=== PATIENT | female | born 1940 | race Caucasian/White ===

== ENCOUNTER → 2017-10-30 12:46 | Outpatient (CLI) | payer MEDICARE, OTHER, SELFPAY ==
--- NOTE | 2017-10-30 | DI.MRI.S_ITS ---
PROCEDURE: MR ANKLE RT WO CON INDICATIONS: STRAIN OF RIGHT ACHILLES TENDON TECHNIQUE: Noncontrast sagittal T1 spin echo and T2 fast spin echo with fat saturation, axial proton density fast spin echo and T2 fast spin echo with fat saturation, coronal T1 spin echo and T2 fast spin echo with fat saturation through the ankle/hindfoot. COMPARISON: None. FINDINGS: Image quality: There is mild inhomogeneous fat saturation. Bones and joints: No bone marrow contusions or fractures. No hindfoot coalitions. No osteochondral injuries of the talar dome. There is flag-bi-odtszzdh degeneration along the posterior facet of the subtalar joint with associated subchondral edema as well as a probable small osteochondral lesion. There is a small tibiotalar joint effusion. There is mild generalized subcutaneous edema. Medial structures: The posterior tibialis, flexor digitorum longus, and flexor hallucis longus tendons are intact. The posterior tibial neurovascular bundle appears normal within the tarsal tunnel, without extrinsic mass effect. The deltoid and spring ligaments appear intact. Lateral structures: The anterior talofibular, calcaneofibular, and posterior talofibular ligaments appear intact. More superiorly, the anterior and posterior tibiofibular ligaments appear intact, as is the intermalleolar ligament. The tibiofibular syndesmosis is normal in width at 2 mm or less. There is flattening of the peroneus brevis with a partial longitudinal split tear along the lateral malleolus. There is associated mild peritendinitis along the peroneal tendons. Adjacent bony peroneal tubercle and retrotrochlear prominence are normal in size. The sinus tarsi demonstrates preserved fatty signal, without with mild edema. The calcaneonavicular and calcaneocuboid components of the bifurcate ligament appear intact. The dorsal calcaneocuboid ligament appears grossly intact. Anterior structures: The tibialis anterior, extensor hallucis longus, and extensor digitorum longus tendons appear intact. The dorsal talonavicular ligament appears intact. Posterior and plantar structures: Achilles tendon is intact. There is mild fusiform thickening of the central cord of the plantar fascia approximately 1.5 cm from its origin without associated edema. No abductor digiti quinti muscle atrophy to suggest Garcia neuropathy. IMPRESSION: 1. Achilles appears intact without high-grade tear or rupture. 2. 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 3. Small tibiotalar joint effusion. Dictated by: Nnamdi Martin M.D. on 10/30/2017 at 16:02 Approved by: Nnamdi Martin M.D. on 10/30/2017 at 16:09
== END ==
PROVIDERS: Family Provider Family Medicine; PCP Family Medicine; Visit Provider Podiatrist
DX: M19.071 Primary osteoarthritis, right ankle and foot (principal); M25.471 Effusion, right ankle
CPT/HCPCS: 73721

== ENCOUNTER → 2017-11-18 08:13 | Outpatient (CLI) | payer MEDICARE, OTHER, SELFPAY ==
[2017-11-18 08:35] LABS: Hematocrit 38.1 % (36-46); Hemoglobin 12.8 g/dL (12.0-16.0); Mean Corpuscular HGB Conc 33.6 % (30-36); Mean Corpuscular Hemoglobin 34.1 PG (26-34); Mean Corpuscular Volume 101.2 fL (80-100); Platelet Count 118 X10^3/uL (150-400); Red Blood Cell Count 3.77 X10^6/uL (4.0-5.2); Red Cell Distribution Width 17.5 % (11.6-14.8); White Blood Cell Count 2.6 X10^3/uL (4.5-11.0)
[2017-11-18 08:40] LABS: Add Manual Diff / Slide Review YES
[2017-11-18 08:46] LABS: Alanine Aminotransferase 27 IU/L (9-52); Albumin 3.8 g/dL (3.5-5.0); Albumin Globulin Ratio 1.5 (1.0-2.8); Alkaline Phosphatase 54 U/L (38-126); Aspartate Aminotransferase 25 IU/L (14-36); BUN Creatinine Ratio 32.9 (6-22); Bilirubin Total 0.6 mg/dL (0.2-1.3); Blood Urea Nitrogen 23 mg/dL (7-17); Calcium 9.2 mg/dL (8.4-10.2); Carbon Dioxide 27 mmol/L (22-32); Chloride 104 mmol/L (98-107); Estimated Glomerular Filt Rate > 60.0 mL/min (>60); Globulin 2.6 g/dL (1.7-4.1); Glucose 68 mg/dL (80-110); HEMOLYSIS < 15 (0-50); Potassium 4.1 mmol/L (3.4-5.1); Sodium 139 mmol/L (137-145); Total Protein 6.4 g/dL (6.3-8.2)
[2017-11-18 09:08] LABS: Neutrophils Absolute Manual 1352 /uL (3000-5900); Total Cells Counted 100
[2017-11-18 09:10] LABS: Anisocytosis 1+
== END ==
PROVIDERS: Family Provider Family Medicine; PCP Family Medicine; Visit Provider Nurse Practitioner Gerontology
DX: C50.919 Malignant neoplasm of unspecified site of unspecified female breast (principal)
CPT/HCPCS: 36415; 80053; 85025

== ENCOUNTER → 2017-12-10 14:15 | Outpatient (CLI) | payer MEDICARE, OTHER, SELFPAY ==
[2017-12-10 14:53] LABS: Add Manual Diff / Slide Review NO; Basophils Percent Auto 0.7 % (0-2); Eosinophils Percent Auto 2.2 % (2-4); Hemoglobin 12.2 g/dL (12.0-16.0); Mean Corpuscular Hemoglobin 34.2 PG (26-34); Mean Corpuscular Volume 100.7 fL (80-100); Neutrophils Absolute Auto 1300 /uL (3000-5900); Neutrophils Percent Auto 53.1 % (50-75); Platelet Count 181 X10^3/uL (150-400); Red Blood Cell Count 3.57 X10^6/uL (4.0-5.2); Red Cell Distribution Width 16.8 % (11.6-14.8); White Blood Cell Count 2.4 X10^3/uL (4.5-11.0)
[2017-12-10 15:05] LABS: Alanine Aminotransferase 28 IU/L (9-52); Albumin 3.7 g/dL (3.5-5.0); Albumin Globulin Ratio 1.4 (1.0-2.8); Alkaline Phosphatase 66 U/L (38-126); Aspartate Aminotransferase 26 IU/L (14-36); BUN Creatinine Ratio 27.5 (6-22); Bilirubin Total 0.4 mg/dL (0.2-1.3); Blood Urea Nitrogen 22 mg/dL (7-17); Calcium 8.7 mg/dL (8.4-10.2); Carbon Dioxide 26 mmol/L (22-32); Chloride 104 mmol/L (98-107); Estimated Glomerular Filt Rate > 60.0 mL/min (>60); Globulin 2.6 g/dL (1.7-4.1); Glucose 84 mg/dL (80-110); HEMOLYSIS < 15 (0-50); Potassium 4.3 mmol/L (3.4-5.1); Sodium 136 mmol/L (137-145); Total Protein 6.3 g/dL (6.3-8.2)
[2017-12-12 15:38] LABS: Cancer Antigen 27.29 69 U/mL (< 38)
== END ==
PROVIDERS: Family Provider Family Medicine; PCP Family Medicine; Visit Provider Nurse Practitioner Gerontology
DX: C50.919 Malignant neoplasm of unspecified site of unspecified female breast (principal)
CPT/HCPCS: 36415; 80053; 85025; 86300

== ENCOUNTER → 2017-12-23 09:48 | Outpatient (CLI) | payer MEDICARE, OTHER, SELFPAY ==
--- NOTE | 2017-12-23 09:50 | DI.NM.S_ITS ---
PROCEDURE: [place] BONE SCAN WHOLE BODY RADIOPHARMACEUTICAL: 20.1 mCi Tc-99m MDP IV. INDICATIONS: 77-year-old woman with metastatic breast cancer. Restaging. TECHNIQUE: Delayed whole-body scintigrams were obtained approximately 3-4 hours after intravenous injection of radiotracer. Anterior and posterior views were acquired from vertex to feet. Additional left and right oblique views were obtained. COMPARISON: [facility], [place], PET/CT SKULL BASE TO MID THIGH, 08/24/2015, 9:27. [facility], CT, CT CHEST ABD PEL W CON, 12/23/2017, 11:02. FINDINGS: There is increased uptake in the left seventh rib posteriorly and left 10th rib posterior laterally, suspicious for metastases. Increased uptake is also noted in the left scapular tip suspicious for metastasis. No lesions are identified in skull, sternum, clavicles, scapulae,bony pelvis, and visualized shafts of the long bones. There is increased uptake in cervical, thoracic and lumbar spine with distribution indistinguishable from degenerative disc and facet disease; early metastasis to spine could be obscured by degenerative changes. There are foci of increased periarticular activity involving shoulders bilaterally, wrists bilaterally, both hands, hips bilaterally, knees bilaterally, and feet bilaterally, compatible with degenerative/arthritic changes. There is overall diffusely increased soft tissue uptake. IMPRESSION: 1. Multiple rib lesions are suspicious for metastases. 2. Increased uptake in the left scapular tip suspicious for metastasis. 3. Increased activity in T7 correlates with an old compression fracture. 4. Diffuse increased of tissue uptake. This finding is nonspecific and could be secondary to peripheral vascular disease, venous stasis, renal failure or congestive heart failure, resulting in delayed clearance of soft tissue activity. Dictated by: Chrissy Lacey M.D. on 12/23/2017 at 17:09 Transcribed by: GILDARDO on 12/23/2017 at 17:17 Approved by: Adan Dick M.D. on 12/24/2017 at 5:57
--- NOTE | 2017-12-23 11:04 | DI.CT.S_ITS ---
PROCEDURE: CT CHEST ABD PEL W CON INDICATIONS: 77 year-old woman with metastatic breast cancer. Restaging TECHNIQUE: After the administration of oral and intravenous contrast, 5 mm thick sections acquired from the lung apices to the symphysis. 5 mm coronal and sagittal reformats were performed, with additional 7 mm coronal MIP reformats through the lungs. For radiation dose reduction, the following was used: automated exposure control, adjustment of mA and/or kV according to patient size. COMPARISON: [facility], CT, THORAX WITH CONTRAST, 08/08/2015, 11:01. [facility], MR, BRAIN W&WO CONTRAST, 10/30/2015, 11:09. [facility], CT, ABDOMEN/PELVIS WITH CONTRAST, 01/08/2017, 23:36. [facility], CT, NECK/CHEST/ABD/PEL W CONTRAST, 05/29/2016, 10:39. [facility], [place], PET/CT SKULL BASE TO MID THIGH, 08/24/2015, 9:27. [facility], MR, STROKE PROTOCOL, 03/22/2013, 10:32. [facility], CT, ABDOMEN/PELVIS WITH CONTRAST, 03/22/2013, 9:47. [facility], CT, ABDOMEN/PELVIS WITH CONTRAST, 03/07/2013, 13:43. [facility], CT, CHEST ABDOMEN PELVIS WITH CONTRAST, 12/09/2010, 9:50. [facility], CT, CHEST ABDOMEN PELVIS WITH CONTRAST, 02/22/2007, 9:48. [facility], CT, ABDOMEN/PELVIS WITH CONTRAST, 02/15/2006, 16:41. [facility], CT, CHEST/ABD/PEL WITH CONTRAST, 06/30/2017, 9:31. FINDINGS: Image quality: Excellent. CHEST: Lungs and pleura: No acute airspace opacities. No pleural effusions or pneumothorax. Central and peripheral airways appear patent and normal in caliber. Mediastinum: Heart size is normal. No pericardial effusion. There is a 1.3 cm precarinal node, unchanged in size from the last exam and 06/30/2017. Thoracic aorta and central pulmonary arteries are normal in size. Esophagus is normal in caliber. No hiatal hernia. Chest wall: Bilateral mastectomies. No axillary or supraclavicular adenopathy by size criteria. Thyroid gland is normal. ABDOMEN: Solid organs: Liver is normal in size and enhancement. Gallbladder is surgically absent. Biliary system is non dilated. Pancreas enhances normally. Spleen is normal in size and enhancement. There is a 2 cm cyst in spleen. No adrenal nodules. Kidneys demonstrate normal size and enhancement, without hydronephrosis. Multiple simple appearing renal cysts are present bilaterally. Peritoneum and bowel: There are postsurgical changes in cecum. Bowel loops demonstrate normal wall thickness and caliber. No free fluid or air. Nodes and vessels: No retroperitoneal or mesenteric adenopathy by size criteria. Aorta and inferior vena cava are normal in size. Miscellaneous: There are 2 small fat containing ventral hernias. PELVIS: Genitourinary: Bladder wall thickness is normal. Miscellaneous: No inguinal hernias or adenopathy. Bones: Old left rib fractures noted. There is severe compression fracture of T7 with more than 50% loss of vertebral body height, and mild compression fracture of T3 with ~25% loss of vertebral body height. There is subtle cortical sclerosis in the right side of the sternum. Degenerative changes noted in lumbar spine. IMPRESSION: 1. Stable mildly enlarged precarinal lymph node. 2. Stable severe compression fracture of T7 and mild compression fracture of T3. 3. Bilateral mastectomies. 4. Postsurgical changes in right colon. 5. Bilateral simple appearing renal cysts and a splenic cyst. 3. Two small fat containing ventral hernias. Dictated by: Chrissy Lacey M.D. on 12/23/2017 at 12:36 Transcribed by: GILDARDO on 12/23/2017 at 13:00 Approved by: Chrissy Lacey M.D. on 12/23/2017 at 18:10
== END ==
PROVIDERS: Family Provider Family Medicine; PCP Family Medicine; Visit Provider Internal Medicine Hematology & Oncology
DX: C50.919 Malignant neoplasm of unspecified site of unspecified female breast (principal); R59.0 Localized enlarged lymph nodes; M48.54XA Collapsed vertebra, not elsewhere classified, thoracic region, initial encounter for fracture; N28.1 Cyst of kidney, acquired; K43.9 Ventral hernia without obstruction or gangrene; R93.7 Abnormal findings on diagnostic imaging of other parts of musculoskeletal system
CPT/HCPCS: 71260; 74177; 78306; A9503; Q9967

== ENCOUNTER → 2018-02-08 08:29 | Outpatient (CLI) | payer MEDICARE, OTHER, SELFPAY ==
[2018-02-08 09:28] LABS: Hematocrit 36.1 % (36-46); Hemoglobin 12.4 g/dL (12.0-16.0); Mean Corpuscular HGB Conc 34.3 % (30-36); Mean Corpuscular Hemoglobin 35.4 PG (26-34); Mean Corpuscular Volume 103.2 fL (80-100); Platelet Count 140 X10^3/uL (150-400); Red Cell Distribution Width 17.2 % (11.6-14.8)
[2018-02-08 09:30] LABS: Add Manual Diff / Slide Review YES; White Blood Cell Count 1.8 X10^3/uL (4.5-11.0)
--- NOTE | 2018-02-08 09:30 | PC.NURSE ---
Received critical result from Antonette in lab, WBC 1.8; blood bank attendant aware.
[2018-02-08 09:57] LABS: Alanine Aminotransferase 27 IU/L (9-52); Albumin 3.6 g/dL (3.5-5.0); Albumin Globulin Ratio 1.6 (1.0-2.8); Alkaline Phosphatase 49 U/L (38-126); Aspartate Aminotransferase 22 IU/L (14-36); BUN Creatinine Ratio 28.6 (6-22); Bilirubin Total 0.7 mg/dL (0.2-1.3); Blood Urea Nitrogen 20 mg/dL (7-17); Carbon Dioxide 26 mmol/L (22-32); Chloride 109 mmol/L (98-107); Estimated Glomerular Filt Rate > 60.0 mL/min (>60); Globulin 2.2 g/dL (1.7-4.1); Glucose 77 mg/dL (80-110); HEMOLYSIS 16 (0-50); Potassium 4.4 mmol/L (3.4-5.1); Sodium 143 mmol/L (137-145); Total Protein 5.8 g/dL (6.3-8.2)
[2018-02-08 10:04] LABS: Cholesterol 151 mg/dL (140-199); HDL Cholesterol 78 mg/dL (40-60); LDL Cholesterol Calculated 55 mg/dL (<100); Triglycerides 91 mg/dL (35-150)
[2018-02-08 10:28] LABS: Carcinoembryonic Antigen 7.1 ng/mL (0.1-3.0)
[2018-02-08 10:38] LABS: Neutrophils Absolute Manual 612 /uL (3000-5900); Total Cells Counted 50
[2018-02-08 10:39] LABS: Anisocytosis 1+
[2018-02-10 15:17] LABS: CA 15-3 38 U/mL (< 32)
== END ==
PROVIDERS: Family Provider Family Medicine; PCP Family Medicine; Visit Provider Internal Medicine Hematology & Oncology
DX: C50.919 Malignant neoplasm of unspecified site of unspecified female breast (principal); E78.2 Mixed hyperlipidemia
CPT/HCPCS: 36415; 80053; 80061; 82378; 85025; 86300

== ENCOUNTER → 2018-02-17 08:56 | Outpatient (CLI) | payer MEDICARE, OTHER, SELFPAY ==
[2018-02-17 09:16] LABS: Add Manual Diff / Slide Review NO; Basophils Percent Auto 0.6 % (0-2); Eosinophils Percent Auto 2.7 % (2-4); Hematocrit 35.5 % (36-46); Lymphocytes Percent Auto 26.1 % (25-40); Mean Corpuscular HGB Conc 33.9 % (30-36); Mean Corpuscular Hemoglobin 35.5 PG (26-34); Mean Corpuscular Volume 104.6 fL (80-100); Monocytes Percent Auto 14.5 % (3-14); Neutrophils Absolute Auto 1300 /uL (3000-5900); Neutrophils Percent Auto 56.1 % (50-75); Platelet Count 197 X10^3/uL (150-400); Red Blood Cell Count 3.39 X10^6/uL (4.0-5.2); Red Cell Distribution Width 16.4 % (11.6-14.8); White Blood Cell Count 2.4 X10^3/uL (4.5-11.0)
--- NOTE | 2018-02-17 12:50 | PC.NURSE ---
Dr Fischer reviewed labs from today. ANC 1300. Ok'd pt to start Ibrance. Left pt voice message regarding this.
== END ==
PROVIDERS: Family Provider Family Medicine; PCP Family Medicine
DX: C50.919 Malignant neoplasm of unspecified site of unspecified female breast (principal)
CPT/HCPCS: 36415; 85025

== ENCOUNTER → 2018-03-09 11:30 | Outpatient (CLI) | payer MEDICARE, OTHER, SELFPAY ==
[2018-03-09 11:51] LABS: Add Manual Diff / Slide Review NO; Basophils Percent Auto 1.2 % (0-2); Eosinophils Percent Auto 3.4 % (2-4); Hematocrit 34.6 % (36-46); Hemoglobin 11.9 g/dL (12.0-16.0); Lymphocytes Percent Auto 37.7 % (25-40); Mean Corpuscular HGB Conc 34.4 % (30-36); Mean Corpuscular Hemoglobin 35.3 PG (26-34); Mean Corpuscular Volume 102.5 fL (80-100); Monocytes Percent Auto 8.4 % (3-14); Neutrophils Absolute Auto 1200 /uL (3000-5900); Neutrophils Percent Auto 49.3 % (50-75); Platelet Count 165 X10^3/uL (150-400); Red Blood Cell Count 3.38 X10^6/uL (4.0-5.2); Red Cell Distribution Width 15.1 % (11.6-14.8); White Blood Cell Count 2.3 X10^3/uL (4.5-11.0)
[2018-03-09 11:59] LABS: Alanine Aminotransferase 22 IU/L (9-52); Albumin 3.9 g/dL (3.5-5.0); Albumin Globulin Ratio 1.6 (1.0-2.8); Alkaline Phosphatase 53 U/L (38-126); Aspartate Aminotransferase 26 IU/L (14-36); BUN Creatinine Ratio 27.5 (6-22); Bilirubin Total 0.8 mg/dL (0.2-1.3); Blood Urea Nitrogen 22 mg/dL (7-17); Calcium 9.4 mg/dL (8.4-10.2); Carbon Dioxide 25 mmol/L (22-32); Chloride 105 mmol/L (98-107); Estimated Glomerular Filt Rate > 60.0 mL/min (>60); Globulin 2.4 g/dL (1.7-4.1); Glucose 91 mg/dL (80-110); HEMOLYSIS < 15 (0-50); Potassium 4.7 mmol/L (3.4-5.1); Sodium 140 mmol/L (137-145); Total Protein 6.3 g/dL (6.3-8.2)
[2018-03-09 12:30] LABS: Carcinoembryonic Antigen 6.3 ng/mL (0.1-3.0)
[2018-03-10 15:12] LABS: Cancer Antigen 27.29 38 U/mL (< 38)
== END ==
PROVIDERS: Family Provider Family Medicine; PCP Family Medicine
DX: C50.919 Malignant neoplasm of unspecified site of unspecified female breast (principal); E78.2 Mixed hyperlipidemia; H71.91 Unspecified cholesteatoma, right ear; L29.9 Pruritus, unspecified
CPT/HCPCS: 36415; 80053; 82378; 85025; 86300

== ENCOUNTER → 2018-04-08 10:50 | Outpatient (CLI) | payer MEDICARE, OTHER, SELFPAY ==
[2018-04-08 11:31] LABS: Add Manual Diff / Slide Review NO; Basophils Percent Auto 0.6 % (0-2); Eosinophils Percent Auto 2.7 % (2-4); Lymphocytes Percent Auto 27.7 % (25-40); Mean Corpuscular HGB Conc 33.5 % (30-36); Mean Corpuscular Hemoglobin 35.3 PG (26-34); Mean Corpuscular Volume 105.4 fL (80-100); Monocytes Percent Auto 7.1 % (3-14); Neutrophils Absolute Auto 1800 /uL (3000-5900); Neutrophils Percent Auto 61.9 % (50-75); Platelet Count 201 X10^3/uL (150-400); Red Blood Cell Count 3.41 X10^6/uL (4.0-5.2); Red Cell Distribution Width 15.2 % (11.6-14.8)
[2018-04-08 11:39] LABS: Alanine Aminotransferase 30 IU/L (9-52); Albumin 3.8 g/dL (3.5-5.0); Albumin Globulin Ratio 1.7 (1.0-2.8); Alkaline Phosphatase 50 U/L (38-126); Aspartate Aminotransferase 30 IU/L (14-36); Bilirubin Total 0.4 mg/dL (0.2-1.3); Blood Urea Nitrogen 27 mg/dL (7-17); Calcium 8.9 mg/dL (8.4-10.2); Carbon Dioxide 26 mmol/L (22-32); Chloride 102 mmol/L (98-107); Estimated Glomerular Filt Rate > 60.0 mL/min (>60); Globulin 2.2 g/dL (1.7-4.1); Glucose 87 mg/dL (80-110); HEMOLYSIS < 15 (0-50); Potassium 4.6 mmol/L (3.4-5.1); Sodium 135 mmol/L (137-145)
[2018-04-10 15:06] LABS: Cancer Antigen 27.29 32 U/mL (< 38)
--- NOTE | 2018-05-21 16:32 | PC.NURSE ---
Pt called inquiring about pain medication for L rib discomfort. She also indicated that she was leaving town around the and would need prior to her departure. Note left for Mondays Triage nurse for followp
== END ==
PROVIDERS: Family Provider Family Medicine; PCP Family Medicine
DX: C50.919 Malignant neoplasm of unspecified site of unspecified female breast (principal); Z17.0 Estrogen receptor positive status [ER+]
CPT/HCPCS: 36415; 80053; 85025; 86300

== ENCOUNTER → 2018-06-14 07:39 | Outpatient (CLI) | payer MEDICARE, OTHER, SELFPAY ==
--- NOTE | 2018-06-14 07:48 | DI.NM.S_ITS ---
PROCEDURE: [place] BONE SCAN WHOLE BODY RADIOPHARMACEUTICAL: 21.8 mCi Tc-99m MDP IV. INDICATIONS: BREAST CANCER TECHNIQUE: Delayed whole-body scintigrams were obtained approximately 3-4 hours after intravenous injection of radiotracer. Anterior and posterior views were acquired from vertex to feet. COMPARISON: [place], [place], [place] BONE SCAN WHOLE BODY, 12/23/2017, 13:29. FINDINGS: One. Previously described increased uptake involving left seventh rib posteriorly and left 10th rib posterolaterally are again seen. There is also suggestion of a focus of increased uptake involving the inferior aspect of left scapular also unchanged from previous study. No new area of abnormal increased uptake is seen. Symmetric increased uptake in cervical, thoracic and lumbar spine with distribution suggestive of degenerative disc disease and facet disease is again noted and unchanged. Symmetric increased uptake in bilateral shoulder joints, hip joints, knee joints and ankle joints are again seen and are suggestive of osteoarthritic changes. IMPRESSION: 1. Stable appearing increased foci of uptake involving left seventh and 10th ribs suspicious for metastatic disease. 2. Stable increased uptake involving tip of left scapula, also unchanged from prior study and is suspicious for metastatic disease. 3. Stable moderately increased uptake involving T7 vertebral body consistent with chronic compression fracture in this area. 4. No new area of abnormal increased radiotracer uptake is seen. Dictated by: Eben Santos M.D. on 06/14/2018 at 16:33 Approved by: Eben Santos M.D. on 06/14/2018 at 16:43
--- NOTE | 2018-06-14 07:48 | DI.CT.S_ITS ---
PROCEDURE: CT CHEST ABD PEL W CON INDICATIONS: Restaging breast cancer TECHNIQUE: After the administration of oral and intravenous contrast, 5 mm thick sections acquired from the lung apices to the symphysis. 5 mm coronal and sagittal reformats were performed, with additional 7 mm coronal MIP reformats through the lungs. For radiation dose reduction, the following was used: automated exposure control, adjustment of mA and/or kV according to patient size. COMPARISON: [facility], CT, CT CHEST ABD PEL W CON, 12/23/2017, 11:02. FINDINGS: Image quality: Excellent. CHEST: Lungs and pleura: No acute airspace opacities. Scarring/atelectasis in lateral periphery of left upper lobe and posterior medial aspect of right lower lobe are seen. No discrete pulmonary nodule mass is identified. No pleural effusions or pneumothorax. Central and peripheral airways appear patent and normal in caliber. Mediastinum: Heart size is normal. No pericardial effusion. No mediastinal or hilar adenopathy by size criteria. Previously described precarinal lymph node measures 1.3 cm in size and now measures 6 mm in short axis diameter. Thoracic aorta and central pulmonary arteries are normal in size. Esophagus is normal in caliber. No hiatal hernia. Chest wall: Post surgical changes in anterior chest wall are seen from prior bilateral mastectomy. No axillary or supraclavicular adenopathy by size criteria. Surgical clips are seen in left axilla. Thyroid gland is within normal limits. ABDOMEN: Solid organs: Liver is normal in size and enhancement. Gallbladder is surgically absent. Biliary system is non dilated. Pancreas enhances normally. Spleen is normal in size and enhancement. Likely cyst in the inferior spleen is again seen and measures 2 cm in size, unchanged from prior study. No adrenal nodules. Kidneys demonstrate normal size and enhancement, without hydronephrosis. Bilateral renal cysts are again seen and unchanged. Peritoneum and bowel: Bowel loops demonstrate normal wall thickness and caliber. No free fluid or air. Postsurgical changes in right side of the colon is again seen and are unchanged. Nodes and vessels: No retroperitoneal or mesenteric adenopathy by size criteria. Aorta and inferior vena cava are normal in size. Miscellaneous: Periumbilical hernia is again seen containing fat only. A second small ventral hernia is also seen containing fat only. PELVIS: Genitourinary: Bladder wall thickness is normal. Miscellaneous: No inguinal hernias or adenopathy. Bones: Old healed fracture involving the left posterior seventh rib is again seen. Old healed fractures involving left anterolateral fifth and sixth ribs are also noted and unchanged. Chronic appearing severe anterior compression deformity of T7 is again noted with focal kyphosis centered at T7 level. Chronic appearing anterior wedge compression at T3 level is again noted and unchanged. Mild anterior wedge compression at T6 level is also noted. Mild anterior compression of C7 is also seen, unchanged from previous study. Previously described ill-defined area of sclerosis involving right side of sternum is again seen and unchanged. 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 Degenerative disc disease throughout thoracic and lumbar spine is seen. Winn-white anterolisthesis of L3 on L4 is again noted and unchanged. IMPRESSION: 1. Previously noted mildly enlarged precarinal lymph node is now normal in size. No new adenopathy is seen in chest, abdomen or pelvis. 2. Stable severe compression deformity of T7 and chronic appearing anterior wedge compression deformity at C7, T3, and T6 level. 3. Post surgical changes from prior bilateral mastectomy. Dictated by: Eben Santos M.D. on 06/14/2018 at 12:43 Approved by: Eben Santos M.D. on 06/14/2018 at 13:00
[2018-06-14 09:04] LABS: Add Manual Diff / Slide Review NO; Eosinophils Percent Auto 2.8 % (2-4); Hematocrit 36.7 % (36-46); Hemoglobin 12.7 g/dL (12.0-16.0); Lymphocytes Percent Auto 35.3 % (25-40); Mean Corpuscular HGB Conc 34.5 % (30-36); Mean Corpuscular Hemoglobin 35.5 PG (26-34); Mean Corpuscular Volume 102.9 fL (80-100); Monocytes Percent Auto 12.4 % (3-14); Neutrophils Absolute Auto 1100 /uL (1500-7000); Neutrophils Percent Auto 48.5 % (50-75); Platelet Count 133 X10^3/uL (150-400); Red Blood Cell Count 3.57 X10^6/uL (4.0-5.2); Red Cell Distribution Width 15.2 % (11.6-14.8); White Blood Cell Count 2.3 X10^3/uL (4.5-11.0)
[2018-06-14 09:18] LABS: Alanine Aminotransferase 25 IU/L (9-52); Albumin 3.8 g/dL (3.5-5.0); Albumin Globulin Ratio 1.6 (1.0-2.8); Alkaline Phosphatase 57 U/L (38-126); Aspartate Aminotransferase 27 IU/L (14-36); BUN Creatinine Ratio 33.8 (6-22); Bilirubin Total 0.7 mg/dL (0.2-1.3); Blood Urea Nitrogen 27 mg/dL (7-17); Calcium 9.6 mg/dL (8.4-10.2); Carbon Dioxide 24 mmol/L (22-32); Chloride 106 mmol/L (98-107); Estimated Glomerular Filt Rate > 60.0 mL/min (>60); Globulin 2.4 g/dL (1.7-4.1); Glucose 83 mg/dL (80-110); HEMOLYSIS < 15 (0-50); Potassium 4.3 mmol/L (3.4-5.1); Sodium 137 mmol/L (137-145); Total Protein 6.2 g/dL (6.3-8.2)
[2018-06-14 09:49] LABS: Carcinoembryonic Antigen 6.2 ng/mL (0.1-3.0)
[2018-06-17 15:21] LABS: Cancer Antigen 27.29 34 U/mL (< 38)
== END ==
PROVIDERS: Family Provider Family Medicine; PCP Family Medicine
DX: C50.919 Malignant neoplasm of unspecified site of unspecified female breast (principal); M89.9 Disorder of bone, unspecified; N28.1 Cyst of kidney, acquired; K42.9 Umbilical hernia without obstruction or gangrene; K43.9 Ventral hernia without obstruction or gangrene; Z90.49 Acquired absence of other specified parts of digestive tract; Z90.13 Acquired absence of bilateral breasts and nipples
CPT/HCPCS: 36415; 71260; 74177; 78306; 80053; 82378; 85025; 86300; A9503; Q9967

== ENCOUNTER 2018-06-15 13:58 | Emergency (ER) | payer MEDICARE, OTHER, SELFPAY ==
[2018-06-15 14:07] VITALS: BP 146/63; PULSE 65; RESP 18; TEMP 36.8; O2SAT 100
--- NOTE | 2018-06-15 14:47 | ED.SKABFB ---
HPI - Skin/Abscess/Foreign Bdy <BARBARA Sebastian - Last Filed: 06/15/18 21:26> General Chief complaint: Skin/Abscess/Foreign Body Stated complaint: left leg cellulitis Time Seen by Provider: 06/15/18 14:47 Source: patient Mode of arrival: ambulatory Limitations: no limitations History of Present Illness HPI narrative: 78-year-old female with history of metastatic breast cancer and is a nonsmoker here for complaint of pain into her left lower calf and posterior knee over the past few days. She denies any trauma to the area. She is currently being treated for cellulitis to the left lower extremity. Pain is not in the area of the cellulitis. She denies any fevers. She is able to ambulate into the emergency room. She states she was concerned for a blood clot. She received a bone scan yesterday which shows equal uptake to bilateral lower extremities and knees it consistent with osteoarthritis no concerning metastatic findings. She denies any other concerns or complaints at this timeframe. Related Data Home Medications Medication Instructions Recorded Confirmed [AZO] 1 tab PO PRN PRN #0 02/17/17 06/16/18 ascorbic acid (vitamin C) 500 mg PO DAILY 01/04/18 06/16/18 cholecalciferol (vitamin D3) 3,000 3,000 unit PO DAILY 01/04/18 06/16/18 unit tablet ofhzuoxdpar-O-Anbvtpormxhtztfspr 1 tab PO QAM tab 01/04/18 06/16/18 500 mg-200 mg tablet krill oil 350 mg PO DAILY 01/04/18 06/16/18 psyllium husk 2 cap PO PRN PRN 01/04/18 06/16/18 fulvestrant [Faslodex] 500 mg IM QMONTH 01/12/18 06/16/18 atorvastatin 5 mg PO QPM 02/18/18 06/16/18 triamcinolone acetonide 1 applictn TOP DAILY 04/13/18 06/16/18 Previous Rx's Medication Instructions Recorded palbociclib 100 mg PO DAILY #21 cap 10/20/17 levothyroxine [Levoxyl] 75 mcg PO AMAC #30 tab 12/30/17 coenzyme Q10 100 mg capsule 100 mg PO DAILY #90 cap 02/01/18 melatonin 3 mg tablet 3 mg PO BEDTIME PRN #90 tab 02/01/18 hydrocodone-acetaminophen 1 tab PO Q6H PRN 30 Days #30 tab 05/25/18 Allergies Allergy/AdvReac Type Severity Reaction Status Date / Time levofloxacin AdvReac Mild DISORIENTED, Verified 06/14/18 14:48 HOT SPELLS, FLUSHED Review of Systems <BARBARA Sebastian - Last Filed: 06/15/18 21:26> Constitutional Denies chills, Denies fever(s), Denies lethargy and Denies weakness Eyes Denies change in vision, Denies eye discharge, Denies irritation and Denies loss of vision ENT Ears, Nose, Mouth, and Throat: Denies change in voice, Denies neck pain and Denies sore throat Cardiovascular Denies chest pain, Denies irregular heart rhythm, Denies lightheadedness, Denies palpitations, Denies dyspnea, Denies dyspnea on exertion and Denies orthopnea Respiratory Denies cough, Denies dyspnea, Denies dyspnea on exertion and Denies wheezing Gastrointestinal Gastrointestinal: Denies abdominal pain, Denies change in bowel habits, Denies diarrhea, Denies nausea and Denies vomiting Genitourinary Denies hematuria, Denies flank pain, Denies urinary incontinence and Denies urinary urgency Musculoskeletal Denies neck pain Comments: Pain into left calf and posterior knee Integumentary/Breasts Denies pruritus, Denies erythema, Denies rash and Denies wounds Neurologic Denies confusion, Denies loss of vision and Denies weakness Psychiatric Denies anxiety, Denies confusion, Denies depression, Denies homicidal ideation and Denies suicidal ideation Endocrine Denies palpitations Hematologic/Lymphatic Denies easy bruising Allergic/Immunologic Denies wheezing Exam <BARBARA Sebastian - Last Filed: 06/15/18 21:26> Initial Vital Signs Initial Vital Signs: Vital Signs Temperature 98.2 F 06/15/18 14:07 Pulse Rate 65 06/15/18 14:07 Respiratory Rate 18 06/15/18 14:07 Blood Pressure 146/63 H 06/15/18 14:07 Pulse Oximetry 100 06/15/18 14:07 Const General: cooperative and well developed Nutritional Appearance: well nourished Orientation: alert, awake, oriented x3 and not confused HENMT Mouth: oral mucosae normal and mucous membranes abnormal Eyes Conjunctivae: conjunctivae normal Sclera: sclerae normal Pupils: PERRL EOM: EOM intact bilaterally Resp Effort & Inspection: normal respiratory effort, able to speak in complete sentences, no respiratory distress and no use of accessory muscles Auscultation: clear to auscultation bilaterally, no rales, no rhonchi and no wheezes Cardio Rate: regular rate Rhythm: regular rhythm Heart Sounds: no click, no gallops, no murmurs and no rubs Pulses: normal peripheral pulses Skin General: no rashes or lesions noted, No jaundice and No petechiae Neuro General: alert, oriented x3, gait normal and no focal motor deficits Speech: speech normal Extrem Other: Left lower extremity with no signs of trauma. Cellulitis to the left lower extremity this not appear to be worse than prior pictures shown by patient no increased temperature. Homans sign is negative. Distal sensation is intact. Distal range of motion is intact. No swelling to the lower extremity. <Margaret Evangelista DO - Last Filed: 06/18/18 19:48> Initial Vital Signs Initial Vital Signs: Vital Signs Temperature 98.2 F 06/15/18 14:07 Pulse Rate 65 06/15/18 14:07 Respiratory Rate 18 06/15/18 14:07 Blood Pressure 146/63 H 06/15/18 14:07 Pulse Oximetry 100 06/15/18 14:07 Course <BARBARA Sebastian - Last Filed: 06/15/18 21:26> Orders Ordered: ED Orders 06/15/18 14:57 US periph venous low extrem lt Stat 06/15/18 15:25 Complete Blood Count AUTO DIFF Stat Comprehensive Metabolic Panel Stat Procalcitonin Stat Vital Signs - 8 hr 06/15/18 14:07 Temperature 98.2 F Pulse Rate 65 Respiratory Rate 18 Blood Pressure 146/63 H Pulse Oximetry 100 <Margaret Evangelista DO - Last Filed: 06/18/18 19:48> Orders Ordered: ED Orders 06/15/18 14:57 US periph venous low extrem lt Stat 06/15/18 15:25 Complete Blood Count AUTO DIFF Stat Comprehensive Metabolic Panel Stat Procalcitonin Stat Vital Signs - 8 hr 06/15/18 14:07 Temperature 98.2 F Pulse Rate 65 Respiratory Rate 18 Blood Pressure 146/63 H Pulse Oximetry 100 MDM - Skin/Abscess/Foreign Bdy <BARBARA Sebastian - Last Filed: 06/15/18 21:26> Lab Data Result diagrams: 06/15/18 15:25 06/15/18 15:25 Lab Results 06/15/18 06/15/18 06/15/18 Range/Units 15:25 15:25 15:25 WBC 2.9 L (4.5-11.0) X10^3/uL RBC 3.48 L (4.0-5.2) X10^6/uL Hgb 12.3 (12.0-16.0) g/dL Hct 35.9 L (36-46) % MCV 102.9 H (80-100) fL MCH 35.2 H (26-34) PG MCHC 34.2 (30-36) % RDW 15.5 H (11.6-14.8) % Plt Count 173 (150-400) X10^3/uL Neut % (Auto) 56.0 (50-75) % Lymph % (Auto) 28.5 (25-40) % [place] % (Auto) 11.8 (3-14) % Eos % (Auto) 2.5 (2-4) % Baso % (Auto) 1.2 (0-2) % Neut # (Auto) 1700 (2743-3643) /uL Sodium 138 (137-145) mmol/L Potassium 4.6 (3.4-5.1) mmol/L Chloride 105 (98-107) mmol/L Carbon Dioxide 27 (22-32) mmol/L BUN 27 H (7-17) mg/dL Creatinine 0.90 (0.52-1.04) mg/dL Estimated GFR > 60.0 (>60) mL/min BUN/Creatinine Ratio 30.0 H (6-22) Glucose 97 (80-110) mg/dL Calcium 9.6 (8.4-10.2) mg/dL Total Bilirubin 0.5 (0.2-1.3) mg/dL AST 25 (14-36) IU/L ALT 24 (9-52) IU/L Alkaline Phosphatase 52 (38-126) U/L Total Protein 5.5 L (6.3-8.2) g/dL Albumin 3.4 L (3.5-5.0) g/dL Globulin 2.1 (1.7-4.1) g/dL Albumin/Globulin Ratio 1.6 (1.0-2.8) Procalcitonin < 0.05 (<0.5) ng/mL Imaging Data Venous US: Radiologist's impression: [address] [address] Ultrasound Report Signed Patient: Manda Garcia MR#: [id number] : 1940 Acct:[id number] Age/Sex: 78 / F Date of Service: 06/15/18 Loc: ED Accession Number: [id number] Procedure: US periph venous low extrem lt Ordering Provider: Abner Rosario PROCEDURE: US PERIPH VENOUS LOW EXTREM LT INDICATIONS: LEFT LEG PAIN TECHNIQUE: Real-time imaging, as well as color and pulse Doppler interrogation, were performed of the lower extremity deep veins from the inguinal ligament to the popliteal fossa. COMPARISON: None. FINDINGS: The deep veins are normally compressible, and free of intraluminal thrombus. Color and pulse Doppler demonstrate normal phasic intraluminal flow. There is normal augmentation response to distal compression maneuver. Mercer's cyst measuring 5.3 x 1.2 x 1.4 cm. IMPRESSION: No evidence of deep venous thrombosis. Mercer's cyst Dictated by: Azam White M.D. on 06/15/2018 at 16:13 Approved by: Azam White M.D. on 06/15/2018 at 16:13 [facility] Narrative Medical decision making narrative: Ultrasound of the left lower extremity was obtained was negative for any blood clots. Cellulitis is not appear to be worsening. 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 Bone scan yesterday showed no malignant appearing bony lesions to the lower extremities. Differential between calf strain and pain secondary to arthritis or Mercer cyst. CBC and Chem panel were obtained were unremarkable. Procalcitonin was negative. Use currently prescribed pain management regimen as needed for discomfort. Follow up with primary care provider later this week for re-evaluation. For any worsening symptoms return emergency room. <Margaret Evangelista DO - Last Filed: 06/18/18 19:48> Lab Data Lab Results 06/15/18 06/15/18 06/15/18 Range/Units 15:25 15:25 15:25 WBC 2.9 L (4.5-11.0) X10^3/uL RBC 3.48 L (4.0-5.2) X10^6/uL Hgb 12.3 (12.0-16.0) g/dL Hct 35.9 L (36-46) % MCV 102.9 H (80-100) fL MCH 35.2 H (26-34) PG MCHC 34.2 (30-36) % RDW 15.5 H (11.6-14.8) % Plt Count 173 (150-400) X10^3/uL Neut % (Auto) 56.0 (50-75) % Lymph % (Auto) 28.5 (25-40) % [place] % (Auto) 11.8 (3-14) % Eos % (Auto) 2.5 (2-4) % Baso % (Auto) 1.2 (0-2) % Neut # (Auto) 1700 (9524-6557) /uL Sodium 138 (137-145) mmol/L Potassium 4.6 (3.4-5.1) mmol/L Chloride 105 (98-107) mmol/L Carbon Dioxide 27 (22-32) mmol/L BUN 27 H (7-17) mg/dL Creatinine 0.90 (0.52-1.04) mg/dL Estimated GFR > 60.0 (>60) mL/min BUN/Creatinine Ratio 30.0 H (6-22) Glucose 97 (80-110) mg/dL Calcium 9.6 (8.4-10.2) mg/dL Total Bilirubin 0.5 (0.2-1.3) mg/dL AST 25 (14-36) IU/L ALT 24 (9-52) IU/L Alkaline Phosphatase 52 (38-126) U/L Total Protein 5.5 L (6.3-8.2) g/dL Albumin 3.4 L (3.5-5.0) g/dL Globulin 2.1 (1.7-4.1) g/dL Albumin/Globulin Ratio 1.6 (1.0-2.8) Procalcitonin < 0.05 (<0.5) ng/mL Discharge Plan Departure Patient Disposition: Home Clinical Impression: Pain of left calf Discharge Date/Time: 06/15/18 17:05 Interventions: ED Discharge Assessment Last Done: 06/15/18 17:05 Instructions: DI for Calf Muscle Strain Activity Restrictions/Additional Instructions: Ultrasound of the left lower extremity was negative for blood clot. It does show that there is a Mercer cyst to the left knee. Differential between a calf strain and Mercer cyst or arthritis causing her discomfort. Use currently prescribed pain management regimen as needed for any discomfort. Rest area. Follow up with primary care provider later this week. For any worsening symptoms return to the emergency room. Prescriptions: No Action [AZO] 1 tab PO PRN PRN (Reason: Urinary Retention) Qty: 0 RF: 0 levothyroxine [Levoxyl] 75 mcg tablet 75 mcg PO AMAC Qty: 30 RF: 3 atorvastatin 5 mg PO QPM RF: 0 hydrocodone-acetaminophen 5-325 mg Tablet 1 tab PO Q6H PRN (Reason: Pain (Scale Score 4-6)) 30 Days Qty: 30 RF: 0 ascorbic acid (vitamin C) 500 mg PO DAILY RF: 0 cholecalciferol (vitamin D3) 3,000 unit tablet 3,000 unit PO DAILY RF: 0 krill oil 350 mg PO DAILY RF: 0 psyllium husk 2 cap PO PRN PRN (Reason: Constipation) RF: 0 qjtrjxldauj-V-Xqoxxkwlgztqwjp 500-200 mg tablet 1 tab PO QAM RF: 0 melatonin 3 mg tablet 3 mg PO BEDTIME PRN (Reason: sleep) Qty: 90 RF: 0 coenzyme Q10 [Co Q-10] 100 mg capsule 100 mg PO DAILY Qty: 90 RF: 0 palbociclib 100 mg Capsule 100 mg PO DAILY Qty: 21 RF: 2 fulvestrant [Faslodex] 250 mg/5 mL Syringe 500 mg IM QMONTH RF: 0 triamcinolone acetonide 0.1 % cream 1 applictn TOP DAILY RF: 0 Referrals: Jessica Bush DO [Primary Care Provider] - <Margaret Evangelista DO - Last Filed: 06/18/18 19:48> Cosign ED Attending Cosignature Attestation: I was immediately available in the department for consultation. This documentation has been reviewed and I agree with assessment and plan. Supervised by Margaret Evangelista DO
--- NOTE | 2018-06-15 14:50 | ED_ITS ---
HPI - Skin/Abscess/Foreign Bdy <BARBARA Sebastian - Last Filed: 06/15/18 21:26> General Chief complaint: Skin/Abscess/Foreign Body Stated complaint: left leg cellulitis Time Seen by Provider: 06/15/18 14:47 Source: patient Mode of arrival: ambulatory Limitations: no limitations History of Present Illness HPI narrative: 78-year-old female with history of metastatic breast cancer and is a nonsmoker here for complaint of pain into her left lower calf and posterior knee over the past few days. She denies any trauma to the area. She is currently being treated for cellulitis to the left lower extremity. Pain is not in the area of the cellulitis. She denies any fevers. She is able to ambulate into the emergency room. She states she was concerned for a blood clot. She received a bone scan yesterday which shows equal uptake to bilateral lower extremities and knees it consistent with osteoarthritis no concerning metastatic findings. She denies any other concerns or complaints at this timeframe. Related Data Home Medications Medication Instructions Recorded Confirmed [AZO] 1 tab PO PRN PRN #0 02/17/17 06/16/18 ascorbic acid (vitamin C) 500 mg PO DAILY 01/04/18 06/16/18 cholecalciferol (vitamin D3) 3,000 3,000 unit PO DAILY 01/04/18 06/16/18 unit tablet konvkufpipj-U-Hdenapeqvqolyyyrdz 1 tab PO QAM tab 01/04/18 06/16/18 500 mg-200 mg tablet krill oil 350 mg PO DAILY 01/04/18 06/16/18 psyllium husk 2 cap PO PRN PRN 01/04/18 06/16/18 fulvestrant [Faslodex] 500 mg IM QMONTH 01/12/18 06/16/18 atorvastatin 5 mg PO QPM 02/18/18 06/16/18 triamcinolone acetonide 1 applictn TOP DAILY 04/13/18 06/16/18 Previous Rx's Medication Instructions Recorded palbociclib 100 mg PO DAILY #21 cap 10/20/17 levothyroxine [Levoxyl] 75 mcg PO AMAC #30 tab 12/30/17 coenzyme Q10 100 mg capsule 100 mg PO DAILY #90 cap 02/01/18 melatonin 3 mg tablet 3 mg PO BEDTIME PRN #90 tab 02/01/18 hydrocodone-acetaminophen 1 tab PO Q6H PRN 30 Days #30 tab 05/25/18 Allergies Allergy/AdvReac Type Severity Reaction Status Date / Time levofloxacin AdvReac Mild DISORIENTED, Verified 06/14/18 14:48 HOT SPELLS, FLUSHED Review of Systems <BARBARA Sebastian - Last Filed: 06/15/18 21:26> Constitutional Denies chills, Denies fever(s), Denies lethargy and Denies weakness Eyes Denies change in vision, Denies eye discharge, Denies irritation and Denies loss of vision ENT Ears, Nose, Mouth, and Throat: Denies change in voice, Denies neck pain and Denies sore throat Cardiovascular Denies chest pain, Denies irregular heart rhythm, Denies lightheadedness, Denies palpitations, Denies dyspnea, Denies dyspnea on exertion and Denies orthopnea Respiratory Denies cough, Denies dyspnea, Denies dyspnea on exertion and Denies wheezing Gastrointestinal Gastrointestinal: Denies abdominal pain, Denies change in bowel habits, Denies diarrhea, Denies nausea and Denies vomiting Genitourinary Denies hematuria, Denies flank pain, Denies urinary incontinence and Denies urinary urgency Musculoskeletal Denies neck pain Comments: Pain into left calf and posterior knee Integumentary/Breasts Denies pruritus, Denies erythema, Denies rash and Denies wounds Neurologic Denies confusion, Denies loss of vision and Denies weakness Psychiatric Denies anxiety, Denies confusion, Denies depression, Denies homicidal ideation and Denies suicidal ideation Endocrine Denies palpitations Hematologic/Lymphatic Denies easy bruising Allergic/Immunologic Denies wheezing Exam <BARBARA Sebastian - Last Filed: 06/15/18 21:26> Initial Vital Signs Initial Vital Signs: Vital Signs Temperature 98.2 F 06/15/18 14:07 Pulse Rate 65 06/15/18 14:07 Respiratory Rate 18 06/15/18 14:07 Blood Pressure 146/63 H 06/15/18 14:07 Pulse Oximetry 100 06/15/18 14:07 Const General: cooperative and well developed Nutritional Appearance: well nourished Orientation: alert, awake, oriented x3 and not confused HENMT Mouth: oral mucosae normal and mucous membranes abnormal Eyes Conjunctivae: conjunctivae normal Sclera: sclerae normal Pupils: PERRL EOM: EOM intact bilaterally Resp Effort & Inspection: normal respiratory effort, able to speak in complete sentences, no respiratory distress and no use of accessory muscles Auscultation: clear to auscultation bilaterally, no rales, no rhonchi and no wheezes Cardio Rate: regular rate Rhythm: regular rhythm Heart Sounds: no click, no gallops, no murmurs and no rubs Pulses: normal peripheral pulses Skin General: no rashes or lesions noted, No jaundice and No petechiae Neuro General: alert, oriented x3, gait normal and no focal motor deficits Speech: speech normal Extrem Other: Left lower extremity with no signs of trauma. Cellulitis to the left lower extremity this not appear to be worse than prior pictures shown by patient no increased temperature. Homans sign is negative. Distal sensation is intact. Distal range of motion is intact. No swelling to the lower extremity. <Margaret Evangelista DO - Last Filed: 06/18/18 19:48> Initial Vital Signs Initial Vital Signs: Vital Signs Temperature 98.2 F 06/15/18 14:07 Pulse Rate 65 06/15/18 14:07 Respiratory Rate 18 06/15/18 14:07 Blood Pressure 146/63 H 06/15/18 14:07 Pulse Oximetry 100 06/15/18 14:07 Course <BARBARA Sebastian - Last Filed: 06/15/18 21:26> Orders Ordered: ED Orders 06/15/18 14:57 US periph venous low extrem lt Stat 06/15/18 15:25 Complete Blood Count AUTO DIFF Stat Comprehensive Metabolic Panel Stat Procalcitonin Stat Vital Signs - 8 hr 06/15/18 14:07 Temperature 98.2 F Pulse Rate 65 Respiratory Rate 18 Blood Pressure 146/63 H Pulse Oximetry 100 <Margaret Evangelista DO - Last Filed: 06/18/18 19:48> Orders Ordered: ED Orders 06/15/18 14:57 US periph venous low extrem lt Stat 06/15/18 15:25 Complete Blood Count AUTO DIFF Stat Comprehensive Metabolic Panel Stat Procalcitonin Stat Vital Signs - 8 hr 06/15/18 14:07 Temperature 98.2 F Pulse Rate 65 Respiratory Rate 18 Blood Pressure 146/63 H Pulse Oximetry 100 MDM - Skin/Abscess/Foreign Bdy <BARBARA Sebastian - Last Filed: 06/15/18 21:26> Lab Data Result diagrams: 06/15/18 15:25 06/15/18 15:25 Lab Results 06/15/18 06/15/18 06/15/18 Range/Units 15:25 15:25 15:25 WBC 2.9 L (4.5-11.0) X10^3/uL RBC 3.48 L (4.0-5.2) X10^6/uL Hgb 12.3 (12.0-16.0) g/dL Hct 35.9 L (36-46) % MCV 102.9 H (80-100) fL MCH 35.2 H (26-34) PG MCHC 34.2 (30-36) % RDW 15.5 H (11.6-14.8) % Plt Count 173 (150-400) X10^3/uL Neut % (Auto) 56.0 (50-75) % Lymph % (Auto) 28.5 (25-40) % [place] % (Auto) 11.8 (3-14) % Eos % (Auto) 2.5 (2-4) % Baso % (Auto) 1.2 (0-2) % Neut # (Auto) 1700 (9541-4373) /uL Sodium 138 (137-145) mmol/L Potassium 4.6 (3.4-5.1) mmol/L Chloride 105 (98-107) mmol/L Carbon Dioxide 27 (22-32) mmol/L BUN 27 H (7-17) mg/dL Creatinine 0.90 (0.52-1.04) mg/dL Estimated GFR > 60.0 (>60) mL/min BUN/Creatinine Ratio 30.0 H (6-22) Glucose 97 (80-110) mg/dL Calcium 9.6 (8.4-10.2) mg/dL Total Bilirubin 0.5 (0.2-1.3) mg/dL AST 25 (14-36) IU/L ALT 24 (9-52) IU/L Alkaline Phosphatase 52 (38-126) U/L Total Protein 5.5 L (6.3-8.2) g/dL Albumin 3.4 L (3.5-5.0) g/dL Globulin 2.1 (1.7-4.1) g/dL Albumin/Globulin Ratio 1.6 (1.0-2.8) Procalcitonin < 0.05 (<0.5) ng/mL Imaging Data Venous US: Radiologist's impression: [address] [address] Ultrasound Report Signed Patient: Manda Garcia MR#: [id number] : 1940 Acct:[id number] Age/Sex: 78 / F Date of Service: 06/15/18 Loc: ED Accession Number: [id number] Procedure: US periph venous low extrem lt Ordering Provider: Abner Rosario PROCEDURE: US PERIPH VENOUS LOW EXTREM LT INDICATIONS: LEFT LEG PAIN TECHNIQUE: Real-time imaging, as well as color and pulse Doppler interrogation, were performed of the lower extremity deep veins from the inguinal ligament to the popliteal fossa. COMPARISON: None. FINDINGS: The deep veins are normally compressible, and free of intraluminal thrombus. Color and pulse Doppler demonstrate normal phasic intraluminal flow. There is normal augmentation response to distal compression maneuver. Mercer's cyst measuring 5.3 x 1.2 x 1.4 cm. IMPRESSION: No evidence of deep venous thrombosis. Mercer's cyst Dictated by: Azam White M.D. on 06/15/2018 at 16:13 Approved by: Azam White M.D. on 06/15/2018 at 16:13 [facility] Narrative Medical decision making narrative: Ultrasound of the left lower extremity was obtained was negative for any blood clots. Cellulitis is not appear to be worsening. 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 Bone scan yesterday showed no malignant appearing bony lesions to the lower extremities. Differential between calf strain and pain secondary to arthritis or Mercer cyst. CBC and Chem panel were obtained were unremarkable. Procalcitonin was negative. Use currently prescribed pain management regimen as needed for discomfort. Follow up with primary care provider later this week for re-evaluation. For any worsening symptoms return emergency room. <Margaret Evangelista DO - Last Filed: 06/18/18 19:48> Lab Data Lab Results 06/15/18 06/15/18 06/15/18 Range/Units 15:25 15:25 15:25 WBC 2.9 L (4.5-11.0) X10^3/uL RBC 3.48 L (4.0-5.2) X10^6/uL Hgb 12.3 (12.0-16.0) g/dL Hct 35.9 L (36-46) % MCV 102.9 H (80-100) fL MCH 35.2 H (26-34) PG MCHC 34.2 (30-36) % RDW 15.5 H (11.6-14.8) % Plt Count 173 (150-400) X10^3/uL Neut % (Auto) 56.0 (50-75) % Lymph % (Auto) 28.5 (25-40) % [place] % (Auto) 11.8 (3-14) % Eos % (Auto) 2.5 (2-4) % Baso % (Auto) 1.2 (0-2) % Neut # (Auto) 1700 (8562-6451) /uL Sodium 138 (137-145) mmol/L Potassium 4.6 (3.4-5.1) mmol/L Chloride 105 (98-107) mmol/L Carbon Dioxide 27 (22-32) mmol/L BUN 27 H (7-17) mg/dL Creatinine 0.90 (0.52-1.04) mg/dL Estimated GFR > 60.0 (>60) mL/min BUN/Creatinine Ratio 30.0 H (6-22) Glucose 97 (80-110) mg/dL Calcium 9.6 (8.4-10.2) mg/dL Total Bilirubin 0.5 (0.2-1.3) mg/dL AST 25 (14-36) IU/L ALT 24 (9-52) IU/L Alkaline Phosphatase 52 (38-126) U/L Total Protein 5.5 L (6.3-8.2) g/dL Albumin 3.4 L (3.5-5.0) g/dL Globulin 2.1 (1.7-4.1) g/dL Albumin/Globulin Ratio 1.6 (1.0-2.8) Procalcitonin < 0.05 (<0.5) ng/mL Discharge Plan Departure Patient Disposition: Home Clinical Impression: Pain of left calf Discharge Date/Time: 06/15/18 17:05 Interventions: ED Discharge Assessment Last Done: 06/15/18 17:05 Instructions: DI for Calf Muscle Strain Activity Restrictions/Additional Instructions: Ultrasound of the left lower extremity was negative for blood clot. It does show that there is a Mercer cyst to the left knee. Differential between a calf strain and Mercer cyst or arthritis causing her discomfort. Use currently prescribed pain management regimen as needed for any discomfort. Rest area. Follow up with primary care provider later this week. For any worsening symptoms return to the emergency room. Prescriptions: No Action [AZO] 1 tab PO PRN PRN (Reason: Urinary Retention) Qty: 0 RF: 0 levothyroxine [Levoxyl] 75 mcg tablet 75 mcg PO AMAC Qty: 30 RF: 3 atorvastatin 5 mg PO QPM RF: 0 hydrocodone-acetaminophen 5-325 mg Tablet 1 tab PO Q6H PRN (Reason: Pain (Scale Score 4-6)) 30 Days Qty: 30 RF: 0 ascorbic acid (vitamin C) 500 mg PO DAILY RF: 0 cholecalciferol (vitamin D3) 3,000 unit tablet 3,000 unit PO DAILY RF: 0 krill oil 350 mg PO DAILY RF: 0 psyllium husk 2 cap PO PRN PRN (Reason: Constipation) RF: 0 libozxgjivm-D-Veffdihdozdbuop 500-200 mg tablet 1 tab PO QAM RF: 0 melatonin 3 mg tablet 3 mg PO BEDTIME PRN (Reason: sleep) Qty: 90 RF: 0 coenzyme Q10 [Co Q-10] 100 mg capsule 100 mg PO DAILY Qty: 90 RF: 0 palbociclib 100 mg Capsule 100 mg PO DAILY Qty: 21 RF: 2 fulvestrant [Faslodex] 250 mg/5 mL Syringe 500 mg IM QMONTH RF: 0 triamcinolone acetonide 0.1 % cream 1 applictn TOP DAILY RF: 0 Referrals: Jessica Buhs DO [Primary Care Provider] - <Margaret Evangelista DO - Last Filed: 06/18/18 19:48> Cosign ED Attending Cosignature Attestation: I was immediately available in the department for consultation. This documentation has been reviewed and I agree with assessment and plan. Supervised by Margaret Evangelista DO
--- NOTE | 2018-06-15 14:57 | DI.US.S_ITS ---
PROCEDURE: US PERIPH VENOUS LOW EXTREM LT INDICATIONS: LEFT LEG PAIN TECHNIQUE: Real-time imaging, as well as color and pulse Doppler interrogation, were performed of the lower extremity deep veins from the inguinal ligament to the popliteal fossa. COMPARISON: None. FINDINGS: The deep veins are normally compressible, and free of intraluminal thrombus. Color and pulse Doppler demonstrate normal phasic intraluminal flow. There is normal augmentation response to distal compression maneuver. Mercer's cyst measuring 5.3 x 1.2 x 1.4 cm. IMPRESSION: No evidence of deep venous thrombosis. Mercer's cyst Dictated by: Azam White M.D. on 06/15/2018 at 16:13 Approved by: Azam White M.D. on 06/15/2018 at 16:13
--- NOTE | 2018-06-15 15:15 | PC.NURSE ---
Erythema noted to the left medial ankle. Pedal pulses are present and strong bilaterally. Patient has good strength, but having hard time moving the leg secondary to pain. Has been prescribed multiple PO antibiotics since March with no relief. Recently traveled to [place] via air over holidays. Has pain in the left ankle area and behind the left knee.
[2018-06-15 15:37] LABS: Add Manual Diff / Slide Review NO; Basophils Percent Auto 1.2 % (0-2); Eosinophils Percent Auto 2.5 % (2-4); Hematocrit 35.9 % (36-46); Hemoglobin 12.3 g/dL (12.0-16.0); Lymphocytes Percent Auto 28.5 % (25-40); Mean Corpuscular HGB Conc 34.2 % (30-36); Mean Corpuscular Hemoglobin 35.2 PG (26-34); Mean Corpuscular Volume 102.9 fL (80-100); Monocytes Percent Auto 11.8 % (3-14); Neutrophils Absolute Auto 1700 /uL (1500-7000); Platelet Count 173 X10^3/uL (150-400); Red Blood Cell Count 3.48 X10^6/uL (4.0-5.2); Red Cell Distribution Width 15.5 % (11.6-14.8); White Blood Cell Count 2.9 X10^3/uL (4.5-11.0)
[2018-06-15 16:18] LABS: Procalcitonin < 0.05 ng/mL (<0.5)
[2018-06-15 16:27] LABS: Sodium 138 mmol/L (137-145)
[2018-06-15 16:28] LABS: Alanine Aminotransferase 24 IU/L (9-52); Albumin 3.4 g/dL (3.5-5.0); Albumin Globulin Ratio 1.6 (1.0-2.8); Alkaline Phosphatase 52 U/L (38-126); Aspartate Aminotransferase 25 IU/L (14-36); Bilirubin Total 0.5 mg/dL (0.2-1.3); Blood Urea Nitrogen 27 mg/dL (7-17); Calcium 9.6 mg/dL (8.4-10.2); Carbon Dioxide 27 mmol/L (22-32); Chloride 105 mmol/L (98-107); Estimated Glomerular Filt Rate > 60.0 mL/min (>60); Globulin 2.1 g/dL (1.7-4.1); Glucose 97 mg/dL (80-110); Potassium 4.6 mmol/L (3.4-5.1); Total Protein 5.5 g/dL (6.3-8.2)
== END 2018-06-15 17:05 | disposition home or self-care (01) ==
PROVIDERS: Emergency Provider Nurse Practitioner Family; Family Provider Family Medicine; PCP Family Medicine
DX: M79.605 Pain in left leg (principal)
CPT/HCPCS: 36415; 36591; 80053; 84145; 85025; 93971; 99282; 99283

== ENCOUNTER → 2018-09-01 11:28 | Outpatient (CLI) | payer MEDICARE, OTHER, SELFPAY | PROVIDERS: Family Provider Family Medicine; PCP Family Medicine | DX: C50.919 Malignant neoplasm of unspecified site of unspecified female breast (principal) | CPT/HCPCS: 36415; 80053; 85025; 86300 ==

== ENCOUNTER → 2018-12-09 08:46 | Outpatient (CLI) | payer MEDICARE, OTHER, SELFPAY ==
--- NOTE | 2018-12-09 09:40 | DI.CT.S_ITS ---
PROCEDURE: CT CHEST ABD PEL W CON INDICATIONS: Restaging breast cancer TECHNIQUE: After the administration of oral and intravenous contrast, 5 mm thick sections acquired from the lung apices to the symphysis. 5 mm coronal and sagittal reformats were performed, with additional 7 mm coronal MIP reformats through the lungs. For radiation dose reduction, the following was used: automated exposure control, adjustment of mA and/or kV according to patient size. COMPARISON: [facility], [place], [place] BONE SCAN WHOLE BODY, 06/14/2018, 10:59. [facility], CT, NECK/CHEST/ABD/PEL W CONTRAST, 05/29/2016, 10:39. [facility], CT, THORAX WITH CONTRAST, 08/08/2015, 11:01. [facility], CT, CHEST ABDOMEN PELVIS WITH CONTRAST, 12/09/2010, 9:50. [facility], CT, CHEST ABDOMEN PELVIS WITH CONTRAST, 02/22/2007, 9:48. [facility], CT, CT CHEST ABD PEL W CON, 06/14/2018, 10:17. [facility], CT, CT CHEST ABD PEL W CON, 12/23/2017, 11:02. FINDINGS: Image quality: Excellent. CHEST: Lungs and pleura: No acute airspace opacities. No pleural effusions or pneumothorax. Central and peripheral airways appear patent and normal in caliber. Mediastinum: Heart size is normal. No pericardial effusion. No mediastinal or hilar adenopathy by size criteria. Thoracic aorta and central pulmonary arteries are normal in size. Esophagus is normal in caliber. No hiatal hernia. Chest wall: No axillary or supraclavicular adenopathy by size criteria. Bilateral mastectomies. Thyroid gland appears normal where well visualized. Note is made of sclerosis within the inferior tip of the left scapula and several foci of subtle sclerosis are seen along adjacent left-sided posterior ribs. These correlate with areas of abnormal elevated isotope uptake on nuclear medicine bone scanning performed 06/14/18. These areas haven't not shown osteoblastic change on multiple prior CT scans until the most recent studies. No new lesions are found, however. ABDOMEN: Solid organs: Liver is normal in size and enhancement. There are several punctate foci of low radiodensity within the liver parenchyma, each of which likely represents a small cyst too small sacroiliac characterize by CT scanning given stability of appearance over time. Gallbladder has been previously resected. Biliary system is non dilated. Pancreas enhances normally. Spleen is normal in size and enhancement. No adrenal nodules. Kidneys demonstrate normal size and enhancement, without hydronephrosis. There are several bilateral simple appearing water density renal cortical cysts. Peritoneum and bowel: Bowel loops demonstrate normal wall thickness and caliber. No free fluid or air. Nodes and vessels: No retroperitoneal or mesenteric adenopathy by size criteria. Aorta and inferior vena cava are normal in size. Miscellaneous: No ventral hernias. PELVIS: Genitourinary: Bladder wall thickness is normal. Miscellaneous: No inguinal hernias or adenopathy. Bones: No new suspicious bony lesions, and a subtle area of sclerosis at the posterior L2 vertebral body marrow space to the right of midline is again seen consistent with stable osteoblastic metastatic disease. No vertebral body compression fractures. IMPRESSION: 1. 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 One of these lesions is located within the posterior right vertebral body marrow space of L2. No associated compression fracture. 2. Bilateral mastectomies. No visceral metastatic disease or adenopathy is found. Dictated by: Adan Dick M.D. on 12/09/2018 at 16:17 Approved by: Adan Dick M.D. on 12/09/2018 at 16:29
== END ==
PROVIDERS: Family Provider Family Medicine; PCP Family Medicine
DX: C50.919 Malignant neoplasm of unspecified site of unspecified female breast (principal); C79.51 Secondary malignant neoplasm of bone; N28.1 Cyst of kidney, acquired; Z90.13 Acquired absence of bilateral breasts and nipples
CPT/HCPCS: 71260; 74177; Q9967

== ENCOUNTER → 2019-01-24 10:35 | Outpatient (CLI) | payer MEDICARE, OTHER, SELFPAY ==
[2019-01-24 11:03] LABS: Add Manual Diff / Slide Review NO; Basophils Absolute Auto 0 /uL (0-100); Basophils Percent Auto 1.6 % (0-2); Eosinophils Absolute Auto 100 /uL (0-450); Eosinophils Percent Auto 4.4 % (2-4); Hematocrit 37.1 % (36-46); Hemoglobin 12.5 g/dL (12.0-16.0); Lymphocytes Absolute Auto 700 /uL (1100-4500); Lymphocytes Percent Auto 38.3 % (25-40); Mean Corpuscular HGB Conc 33.6 % (30-36); Mean Corpuscular Hemoglobin 34.9 PG (26-34); Mean Corpuscular Volume 103.9 fL (80-100); Monocytes Absolute Auto 200 /uL (0-900); Monocytes Percent Auto 12.1 % (3-14); Neutrophils Absolute Auto 900 /uL (1500-7000); Neutrophils Percent Auto 43.6 % (50-75); Platelet Count 116 X10^3/uL (150-400); Red Blood Cell Count 3.57 X10^6/uL (4.0-5.2); Red Cell Distribution Width 14.5 % (11.6-14.8)
[2019-01-24 11:20] LABS: Alanine Aminotransferase 14 IU/L (9-52); Albumin 3.7 g/dL (3.5-5.0); Albumin Globulin Ratio 1.5 (1.0-2.8); Alkaline Phosphatase 42 U/L (38-126); Aspartate Aminotransferase 25 IU/L (14-36); BUN Creatinine Ratio 35.7 (6-22); Bilirubin Total 0.6 mg/dL (0.2-1.3); Blood Urea Nitrogen 25 mg/dL (7-17); Calcium 9.3 mg/dL (8.4-10.2); Carbon Dioxide 26 mmol/L (22-32); Chloride 105 mmol/L (98-107); Estimated Glomerular Filt Rate > 60.0 mL/min (>60); Globulin 2.5 g/dL (1.7-4.1); Glucose 81 mg/dL (80-110); HEMOLYSIS 22 (0-50); Potassium 4.6 mmol/L (3.4-5.1); Sodium 137 mmol/L (137-145); Total Protein 6.2 g/dL (6.3-8.2)
[2019-01-26 16:35] LABS: Cancer Antigen 27.29 37 U/mL (< 38)
== END ==
PROVIDERS: Family Provider Family Medicine; PCP Family Medicine
DX: C50.919 Malignant neoplasm of unspecified site of unspecified female breast (principal)
CPT/HCPCS: 36415; 80053; 85025; 86300

== ENCOUNTER 2019-01-27 13:07 | Emergency (ER) | payer MEDICARE, OTHER, SELFPAY ==
[2019-01-27] VITALS (8 sets, daily range): BP systolic 126–156; BP diastolic 55–83; PULSE 42–70; RESP 11–16; TEMP 35.9; O2SAT 96–100; BMI 22.4
--- NOTE | 2019-01-27 13:33 | ED.DIZZY ---
HPI - Dizziness General Chief Complaint: Dizziness Stated Complaint: had Lidocaine and started getting dizzy and puky Time Seen by Provider: 01/27/19 13:26 Source: patient Mode of arrival: ambulatory Limitations: no limitations History of Present Illness HPI Narrative: 78-year-old female sent over from ENT office for vertigo. Patient has known cholesteatoma this. She received drops of 4% lidocaine in the left ear at the ENT clinic when she suddenly had onset of vertigo and nausea vomiting. According to the ENT no the patient was observed for approximately an hour but still experience significant imbalance whenever she attempted to sit up with emesis. He also represents rotary nystagmus patient was sent to the emergency department for evaluation. Upon arrival here she reported significant nausea and vertigo sensation. Related Data Home Medications Medication Instructions Recorded Confirmed ascorbic acid (vitamin C) 500 mg PO DAILY 01/04/18 01/11/19 cholecalciferol (vitamin D3) 3,000 3,000 unit PO DAILY 01/04/18 01/11/19 unit tablet srzrachcrsn-R-Auubujlhacvbjymlyp 1 tab PO QAM tab 01/04/18 01/11/19 500 mg-200 mg tablet krill oil 350 mg PO DAILY 01/04/18 01/11/19 psyllium husk 2 cap PO PRN PRN 01/04/18 01/11/19 fulvestrant [Faslodex] 500 mg IM QMONTH 01/12/18 01/11/19 triamcinolone acetonide 1 applictn TOP DAILY 04/13/18 01/11/19 carica papaya [Papaya Enzyme] 1 tab PO DAILY 01/11/19 01/11/19 Previous Rx's Medication Instructions Recorded levothyroxine [Levoxyl] 75 mcg PO AMAC #30 tab 12/30/17 coenzyme Q10 100 mg capsule 100 mg PO DAILY #90 cap 02/01/18 melatonin 3 mg tablet 3 mg PO BEDTIME PRN #90 tab 02/01/18 palbociclib 100 mg PO DAILY #21 cap 11/30/18 Breast Prosthesis And Bra #2 each 12/14/18 atorvastatin 10 mg tablet 5 mg PO DAILY #45 tab 12/28/18 hydrochlorothiazide 12.5 mg tablet 12.5 mg PO DAILY #90 tab 01/26/19 meclizine 25 mg PO BID PRN #10 tab 01/27/19 ondansetron 4 mg PO Q6H PRN #10 tab 01/27/19 Allergies Allergy/AdvReac Type Severity Reaction Status Date / Time levofloxacin AdvReac Mild DISORIENTED, Verified 01/27/19 13:26 HOT SPELLS, FLUSHED Review of Systems Constitutional Denies fever(s), Denies frequent falls and Denies headache(s) Eyes Denies diplopia ENT Ears, Nose, Mouth, and Throat: Reports vertigo, Reports dizziness, Denies headache(s) and Reports disequilibrium Cardiovascular Denies chest pain and Denies dyspnea Respiratory Denies dyspnea Gastrointestinal Gastrointestinal: Reports nausea and Reports vomiting Musculoskeletal Denies myalgias and Denies arthralgias Integumentary/Breasts Denies rash Neurologic Denies confusion, Reports vertigo, Reports dizziness, Denies frequent falls, Denies headache(s) and Reports disequilibrium Psychiatric Denies confusion Hematologic/Lymphatic Denies easy bleeding and Denies easy bruising [facility] History Abnormal chest x-ray (Chronic ~2015) Actinic keratosis (Chronic ~1998) Anemia (Chronic ~2015) Anxiety (Chronic) Atrial fibrillation (Chronic) Breast cancer (Chronic) Carpal tunnel syndrome (Chronic ~2009) Cataracts, bilateral (Chronic ~2003) Colon polyps (Chronic ~1994) Foot pain (Chronic ~1995) Frequent UTI (Chronic) Hay fever (Chronic ~1989) Hearing deficit (Chronic) History of recurrent ear infection (Chronic) Hypothyroidism (Chronic) Osteoarthritis (Chronic ~1999) Osteopenia (Chronic) Osteoporosis (Chronic) Pleural effusion (Chronic) Pneumothorax (Chronic) Scoliosis (Chronic) Vertigo (Chronic ~1999) Vision disorder (Chronic) Chicken pox (Resolved) Measles (Resolved) Mumps (Resolved) Rheumatic fever (Resolved) Social History marital status: household members: spouse lives independently: Yes occupational status: other (retired) Smoking Status: Never smoker alcohol intake: current substance use type: does not use Exam Initial Vital Signs Initial Vital Signs: Vital Signs Pulse Rate 57 L 01/27/19 13:26 Respiratory Rate 14 01/27/19 13:26 Blood Pressure 139/67 01/27/19 13:26 Pulse Oximetry 99 01/27/19 13:26 Const General: cooperative and comfortable Orientation: alert, awake and oriented x3 HENMT Head: normal to inspection and normocephalic Ears: other (Redness and debris in the left EAC. Left tympanic membrane also abnormal.) Eyes Pupils: PERRL Resp Effort & Inspection: normal respiratory effort Auscultation: clear to auscultation bilaterally Cardio Rate: regular rate Rhythm: regular rhythm GI Palpation: soft Skin Lesions: no lesions Rashes: no rashes Neuro General: alert and awake Cognition: normal cognition Speech: speech normal Motor: muscle tone normal throughout Sensory Exam: no sensory deficits noted Extrem General: normal to inspection and capillary refill normal Psych Appearance: grossly normal and well kempt Scores GCS Shola coma scale eye opening: Spontaneous Shola coma scale verbal response: Orientated Shola coma scale motor response: Obey commands Callao coma scale total score: 15 Course Orders Ordered: ED Orders 01/27/19 13:23 B Type Natriuretic Peptide Stat Complete Blood Count AUTO DIFF Stat Comprehensive Metabolic Panel Stat Lipase Stat Partial Thromboplastin Time Stat Prothrombin Time INR Stat Troponin I Stat 01/27/19 13:28 EKG-12 Lead Stat 01/27/19 14:06 XR chest 1V Stat 01/27/19 14:07 CT head/brain wo con Stat 01/27/19 14:16 EKG-12 Lead Stat Discontinued Medications Diazepam (Valium) 2 mg IV NOW ONE Stop: 01/27/19 13:33 Last Admin: 01/27/19 13:37 Dose: 2 mg Sodium Chloride (Normal Saline 0.9%) 1,000 mls @ 1,000 mls/hr IV BOLUS ONE Stop: 01/27/19 14:31 Last Infusion: 01/27/19 14:44 Dose: 0 mls/hr Admin: 01/27/19 13:37 Dose: 1,000 mls/hr Metoclopramide HCl (Reglan) 10 mg IV NOW ONE Stop: 01/27/19 15:14 Last Admin: 01/27/19 15:17 Dose: 10 mg Ondansetron HCl (Zofran) 4 mg IV NOW ONE Stop: 01/27/19 13:33 Last Admin: 01/27/19 13:37 Dose: 4 mg Ondansetron HCl (Zofran) 4 mg IV NOW ONE Stop: 01/27/19 14:30 Last Admin: 01/27/19 14:36 Dose: 4 mg Vital Signs - 8 hr 01/27/19 13:26 01/27/19 13:59 01/27/19 14:48 Temperature Pulse Rate 57 L 42 L 50 L Respiratory Rate 14 12 13 Blood Pressure 139/67 Blood Pressure [Left Arm] 142/72 H 153/65 H Pulse Oximetry 99 96 100 01/27/19 15:15 01/27/19 15:30 01/27/19 16:15 Temperature 96.7 F L Pulse Rate 51 L 55 L 53 L Respiratory Rate 14 11 L 15 Blood Pressure Blood Pressure [Left Arm] 156/83 H 126/55 L 153/71 H Pulse Oximetry 99 100 100 01/27/19 17:30 Temperature Pulse Rate 70 Respiratory Rate Blood Pressure Blood Pressure [Left Arm] 151/79 H Pulse Oximetry MDM - Dizziness Lab Data Attestation: I reviewed the patient's lab results. Result diagrams: 01/27/19 13:23 01/27/19 13:23 Lab Results 01/27/19 01/27/19 01/27/19 Range/Units 13:23 13:23 13:23 WBC 4.1 L (4.5-11.0) X10^3/uL RBC 3.81 L (4.0-5.2) X10^6/uL Hgb 13.4 (12.0-16.0) g/dL Hct 39.3 (36-46) % MCV 103.0 H (80-100) fL MCH 35.0 H (26-34) PG MCHC 34.0 (30-36) % RDW 14.5 (11.6-14.8) % Plt Count 157 (150-400) X10^3/uL Neut % (Auto) 41.6 L (50-75) % Lymph % (Auto) 41.1 H (25-40) % Pacific % (Auto) 13.9 (3-14) % Eos % (Auto) 2.4 (2-4) % Baso % (Auto) 1.0 (0-2) % Neut # (Auto) 1700 (9499-4341) /uL Lymph # (Auto) 1700 (5784-1494) /uL Pacific # (Auto) 600 (0-900) /uL Eos # (Auto) 100 (0-450) /uL Baso # (Auto) 0 (0-100) /uL PT 11.9 (10.1-12.7) SECONDS INR 1.0 (0.9-1.3) APTT 36 (26.4-36.2) SECONDS Sodium 138 (137-145) mmol/L Potassium 4.0 (3.4-5.1) mmol/L Chloride 105 (98-107) mmol/L Carbon Dioxide 24 (22-32) mmol/L BUN 26 H (7-17) mg/dL Creatinine 0.70 (0.52-1.04) mg/dL Estimated GFR > 60.0 (>60) mL/min BUN/Creatinine Ratio 37.1 H (6-22) Glucose 122 H (80-110) mg/dL Calcium 9.9 (8.4-10.2) mg/dL Total Bilirubin 0.7 (0.2-1.3) mg/dL AST 47 H (14-36) IU/L ALT 23 (9-52) IU/L Alkaline Phosphatase 50 (38-126) U/L Troponin I < 0.012 (0.01-0.034) ng/mL B-Natriuretic Peptide < 100 (<100) Total Protein 6.7 (6.3-8.2) g/dL Albumin 4.0 (3.5-5.0) g/dL Globulin 2.7 (1.7-4.1) g/dL Albumin/Globulin Ratio 1.5 (1.0-2.8) Lipase 76 (23-300) U/L Imaging Data Chest x-ray: Radiologist's impression: [address] [address] XRay Report Signed Patient: Manda Garcia LMR#: [id number] : 8Acct:[id number] Age/Sex: 78 / FDate of Service: 01/27/19 Loc: ED Accession Number: [id number] Procedure: XR chest 1V Ordering Provider: Jan Ogden D.O. PROCEDURE: XR CHEST 1V INDICATIONS: Hypoxia TECHNIQUE: One view of the chest was acquired. COMPARISON: [facility], CHEST 1 VIEW, 10/04/2015, 15:36. FINDINGS: Surgical changes and devices: Bilateral breast clips and axillary clips Lungs and pleura: Lungs are clear. No pleural effusions or pneumothorax. Mediastinum: Mediastinal contours appear normal. Heart size is normal. Bones and chest wall: No suspicious bony lesions. Overlying soft tissues appear unremarkable. IMPRESSION: No evidence acute pulmonary process. Dictated by: Dejan Lozoya M.D. on 01/27/2019 at 15:07 Approved by: Dejan Lozoya M.D. on 01/27/2019 at 15:08 CT scan - head: Radiologist's impression: [place] [address] CT Scan Report Signed Patient: Manda Garcia LMR#: [id number] : 8Acct:[id number] Age/Sex: 78 / FDate of Service: 01/27/19 Loc: ED Accession Number: [id number] Procedure: CT head/brain wo con Ordering Provider: Jan Ogden D.O. PROCEDURE: CT HEAD/BRAIN WO CON INDICATIONS: Vertigo history of breast cancer with Mets TECHNIQUE: Noncontrast 4.5 mm thick angled axial sections acquired from the foramen magnum to the vertex, with coronal and sagittal reformats. For radiation dose reduction, the following was used: automated exposure control, adjustment of mA and/or kV according to patient size. COMPARISON: [facility], CT, HEAD WITHOUT CONTRAST, 03/07/2013, 13:04. [facility], CT, HEAD WITHOUT CONTRAST, 09/25/2014, 11:05 FINDINGS: Image quality: Excellent. CSF spaces: Basal cisterns are patent. No extra-axial fluid collections. The ventricles are symmetric in size and shape. Brain: No intracranial bleeds or masses. There is cerebral volume loss for age, with resultant ventricular and sulcal prominence. There are periventricular and deep white matter chronic small vessel ischemic changes. There is intracranial internal carotid artery atherosclerosis. Skull and face: Left calvarial postoperative changes are seen. Calvarium and visualized facial bones appear intact, without suspicious lesions. Sinuses: Visualized sinuses and mastoids are clear. IMPRESSION: No acute intracranial process is seen. No masses are seen to the limits of this noncontrast study. Postoperative changes of the left lateral calvarium can be seen. Dictated by: Damien Tadeo M.D. on 01/27/2019 at 14:56 Approved by: Damien Tadeo M.D. on 01/27/2019 at 14:57 ECG Data Attestation: I personally reviewed and interpreted this ECG as follows: Prior ECG tracings: not available for review Interpretation: EKG upon arrival sinus bradycardia Ventricular rate of 49 Normal axis Normal QRS Normal QTC No ST T wave changes Repeat EKG time 1419 hours Sinus bradycardia Ventricular rate of 45 Normal axis Normal QRS Normal QTC No ST T wave changes MDM Narrative Medical decision making narrative: I am high suspicion that the patient's vertigo was secondary to the administration of the lidocaine. A 1 point during her stay here patient had episodes of bradycardia however this did not seem to change her symptoms. Initial treatment with Valium and Zofran only improve symptoms slightly. It does appear that the Reglan improved her symptoms tremendously. She was able to ambulate around the emergency department with only a slight amount of vertigo. The rest of her workup was unremarkable. Low suspicion for CVA. She was observed here in the emergency department for an extended period of time. I did talk with Dr. Gaston with ENT regarding her symptoms. He stated that he would call her tomorrow for a follow-up. Will send home with Zofran and meclizine which are okay with her other medications. Will hold on further workup for now. I have a low suspicion that this was cardiac in nature. Patient was given return precautions and follow-up instructions. She expressed understanding and agreement plan. Discharge Plan Departure Patient Disposition: Home Clinical Impression: Vertigo Discharge Date/Time: 01/27/19 17:55 Instructions: DI for Vertigo Activity Restrictions/Additional Instructions: Continue all of your medications as directed. Dr. Gaston stated that he would contact you tomorrow to see how you are doing. If your symptoms worsen or you develop any new symptoms please return to the emergency department. Prescriptions: New meclizine 25 mg tablet 25 mg PO BID PRN (Reason: motion sickness) Qty: 10 RF: 0 ondansetron 4 mg tablet,disintegrating 4 mg PO Q6H PRN (Reason: nausea and vomiting) Qty: 10 RF: 0 No Action levothyroxine [Levoxyl] 75 mcg tablet 75 mcg PO AMAC Qty: 30 RF: 3 atorvastatin 10 mg tablet 5 mg PO DAILY Qty: 45 RF: 0 hydrochlorothiazide 12.5 mg tablet 12.5 mg PO DAILY Qty: 90 RF: 1 ascorbic acid (vitamin C) 500 mg PO DAILY RF: 0 cholecalciferol (vitamin D3) 3,000 unit tablet 3,000 unit PO DAILY RF: 0 krill oil 350 mg PO DAILY RF: 0 psyllium husk 2 cap PO PRN PRN (Reason: Constipation) RF: 0 whsnbjzlqyx-P-Ysxtkedtoywvpxg 500-200 mg tablet 1 tab PO QAM RF: 0 melatonin 3 mg tablet 3 mg PO BEDTIME PRN (Reason: sleep) Qty: 90 RF: 0 coenzyme Q10 [Co Q-10] 100 mg capsule 100 mg PO DAILY Qty: 90 RF: 0 fulvestrant [Faslodex] 250 mg/5 mL Syringe 500 mg IM QMONTH RF: 0 triamcinolone acetonide 0.1 % cream 1 applictn TOP DAILY RF: 0 palbociclib 100 mg Capsule 100 mg PO DAILY Qty: 21 RF: 2 Breast Prosthesis And Bra Qty: 2 RF: 1 carica papaya [Papaya Enzyme] Tablet 1 tab PO DAILY RF: 0 Referrals: Jessica Bush DO [Primary Care Provider] -
[2019-01-27] MEDS: SODIUM CHLORIDE 0.9% 1,000 ML 1000 ML IV (13:37)
[2019-01-27] MEDS: ONDANSETRON 4 MG/2 ML INJ IV ×2 (13:37→14:36)
[2019-01-27] MEDS: diazePAM 10 MG/2 ML SYRINGE 2 MG IV (13:37)
--- NOTE | 2019-01-27 14:00 | PC.NURSE ---
pt falling asleep, respirations shallow. O2 dropped to 86. Pt placed on 2L O2 and reminded to breathe. Pt states she isn't feeling any better but falls asleep easily. Pt HR drops to 38 upon falling asleep at well. We moved pt to ED Room 1 and placed pt on pacer pads. Dr. Ogden notified and in to room to evaluate pt. Once in room 1 HR up to 80. HR varied from 39-60.
--- NOTE | 2019-01-27 14:06 | DI.RAD.S_ITS ---
PROCEDURE: XR CHEST 1V INDICATIONS: Hypoxia TECHNIQUE: One view of the chest was acquired. COMPARISON: [facility], , CHEST 1 VIEW, 10/04/2015, 15:36. FINDINGS: Surgical changes and devices: Bilateral breast clips and axillary clips Lungs and pleura: Lungs are clear. No pleural effusions or pneumothorax. Mediastinum: Mediastinal contours appear normal. Heart size is normal. Bones and chest wall: No suspicious bony lesions. Overlying soft tissues appear unremarkable. IMPRESSION: No evidence acute pulmonary process. Dictated by: Dejan Lozoya M.D. on 01/27/2019 at 15:07 Approved by: Dejan Lozoya M.D. on 01/27/2019 at 15:08
--- NOTE | 2019-01-27 14:07 | DI.CT.S_ITS ---
PROCEDURE: CT HEAD/BRAIN WO CON INDICATIONS: Vertigo history of breast cancer with Mets TECHNIQUE: Noncontrast 4.5 mm thick angled axial sections acquired from the foramen magnum to the vertex, with coronal and sagittal reformats. For radiation dose reduction, the following was used: automated exposure control, adjustment of mA and/or kV according to patient size. COMPARISON: [facility], CT, HEAD WITHOUT CONTRAST, 03/07/2013, 13:04. [facility], CT, HEAD WITHOUT CONTRAST, 09/25/2014, 11:05 FINDINGS: Image quality: Excellent. CSF spaces: Basal cisterns are patent. No extra-axial fluid collections. The ventricles are symmetric in size and shape. Brain: No intracranial bleeds or masses. There is cerebral volume loss for age, with resultant ventricular and sulcal prominence. There are periventricular and deep white matter chronic small vessel ischemic changes. There is intracranial internal carotid artery atherosclerosis. Skull and face: Left calvarial postoperative changes are seen. Calvarium and visualized facial bones appear intact, without suspicious lesions. Sinuses: Visualized sinuses and mastoids are clear. IMPRESSION: No acute intracranial process is seen. No masses are seen to the limits of this noncontrast study. Postoperative changes of the left lateral calvarium can be seen. Dictated by: Damien Tadeo M.D. on 01/27/2019 at 14:56 Approved by: Damien Tadeo M.D. on 01/27/2019 at 14:57
[2019-01-27 14:23] LABS: Prothrombin Time 11.9 SECONDS (10.1-12.7)
[2019-01-27 14:26] LABS: PTT Partial Thromboplastin Tim 36 SECONDS (26.4-36.2)
[2019-01-27 14:32] LABS: Add Manual Diff / Slide Review NO; Basophils Absolute Auto 0 /uL (0-100); Eosinophils Absolute Auto 100 /uL (0-450); Eosinophils Percent Auto 2.4 % (2-4); Hematocrit 39.3 % (36-46); Hemoglobin 13.4 g/dL (12.0-16.0); Lymphocytes Absolute Auto 1700 /uL (1100-4500); Lymphocytes Percent Auto 41.1 % (25-40); Monocytes Absolute Auto 600 /uL (0-900); Monocytes Percent Auto 13.9 % (3-14); Neutrophils Absolute Auto 1700 /uL (1500-7000); Neutrophils Percent Auto 41.6 % (50-75); Platelet Count 157 X10^3/uL (150-400); Red Blood Cell Count 3.81 X10^6/uL (4.0-5.2); Red Cell Distribution Width 14.5 % (11.6-14.8); White Blood Cell Count 4.1 X10^3/uL (4.5-11.0)
[2019-01-27 14:34] LABS: Alanine Aminotransferase 23 IU/L (9-52); Albumin Globulin Ratio 1.5 (1.0-2.8); Alkaline Phosphatase 50 U/L (38-126); Aspartate Aminotransferase 47 IU/L (14-36); BUN Creatinine Ratio 37.1 (6-22); Bilirubin Total 0.7 mg/dL (0.2-1.3); Blood Urea Nitrogen 26 mg/dL (7-17); Calcium 9.9 mg/dL (8.4-10.2); Carbon Dioxide 24 mmol/L (22-32); Chloride 105 mmol/L (98-107); Estimated Glomerular Filt Rate > 60.0 mL/min (>60); Globulin 2.7 g/dL (1.7-4.1); Glucose 122 mg/dL (80-110); HEMOLYSIS 44 (0-50); Lipase 76 U/L (23-300); Sodium 138 mmol/L (137-145); Total Protein 6.7 g/dL (6.3-8.2)
[2019-01-27 14:46] LABS: Troponin I < 0.012 ng/mL (0.01-0.034)
[2019-01-27 14:57] LABS: B Type Natriuretic Peptide < 100 (<100)
[2019-01-27] MEDS: METOCLOPRAMIDE 10 MG/2 ML INJ IV (15:17)
--- NOTE | 2019-01-27 15:22 | PC.NURSE ---
Pt report more nausea. Verbal order for Reglan recieved from Dr. Ogden and administered. Pt sts still unable to lay flat for CT. Will try again in a few minutes.
--- NOTE | 2019-01-27 16:56 | PC.NURSE ---
ambulate to restroom. Pt states still slightly dizzy but much better. Wishes to go home. Attempt to call to pu. , Linker aware
== END 2019-01-27 17:55 | disposition home or self-care (01) ==
PROVIDERS: Emergency Provider Emergency Medicine; Family Provider Family Medicine; PCP Family Medicine
DX: R42 Dizziness and giddiness (principal)
CPT/HCPCS: 36415; 36591; 70450; 71045; 80053; 83690; 83880; 84484; 85025; 85610; 85730; 93005; 93010; 96361; 96374; 96375; 96376; 99284; 99285; 99291; J2405; J2765; J3360

== ENCOUNTER → 2019-02-21 10:51 | Outpatient (CLI) | payer MEDICARE, OTHER, SELFPAY ==
[2019-02-21 11:55] LABS: Add Manual Diff / Slide Review NO; Basophils Absolute Auto 0 /uL (0-100); Basophils Percent Auto 1.5 % (0-2); Eosinophils Absolute Auto 100 /uL (0-450); Eosinophils Percent Auto 3.2 % (2-4); Hematocrit 36.5 % (36-46); Hemoglobin 12.3 g/dL (12.0-16.0); Lymphocytes Absolute Auto 800 /uL (1100-4500); Lymphocytes Percent Auto 29.6 % (25-40); Mean Corpuscular HGB Conc 33.7 % (30-36); Mean Corpuscular Hemoglobin 34.9 PG (26-34); Mean Corpuscular Volume 103.6 fL (80-100); Monocytes Absolute Auto 300 /uL (0-900); Monocytes Percent Auto 11.1 % (3-14); Neutrophils Absolute Auto 1400 /uL (1500-7000); Neutrophils Percent Auto 54.6 % (50-75); Platelet Count 136 X10^3/uL (150-400); Red Blood Cell Count 3.52 X10^6/uL (4.0-5.2); Red Cell Distribution Width 13.6 % (11.6-14.8); White Blood Cell Count 2.6 X10^3/uL (4.5-11.0)
[2019-02-21 11:59] LABS: Alanine Aminotransferase 19 IU/L (9-52); Albumin 3.9 g/dL (3.5-5.0); Albumin Globulin Ratio 1.6 (1.0-2.8); Alkaline Phosphatase 58 U/L (38-126); Aspartate Aminotransferase 27 IU/L (14-36); Bilirubin Total 0.6 mg/dL (0.2-1.3); Blood Urea Nitrogen 24 mg/dL (7-17); Calcium 9.7 mg/dL (8.4-10.2); Carbon Dioxide 26 mmol/L (22-32); Chloride 104 mmol/L (98-107); Estimated Glomerular Filt Rate > 60.0 mL/min (>60); Globulin 2.5 g/dL (1.7-4.1); Glucose 105 mg/dL (80-110); HEMOLYSIS < 15 (0-50); Potassium 4.3 mmol/L (3.4-5.1); Sodium 138 mmol/L (137-145); Total Protein 6.4 g/dL (6.3-8.2)
[2019-02-21 12:50] LABS: TSH w/ Reflex to FT4 0.91 uIU/mL (0.47-4.68)
[2019-02-21 13:09] LABS: Vitamin B12 216 pg/mL (239-931)
[2019-02-23 15:11] LABS: Cancer Antigen 27.29 35 U/mL (< 38)
== END ==
PROVIDERS: PCP Family Medicine
DX: C50.919 Malignant neoplasm of unspecified site of unspecified female breast (principal); Z90.49 Acquired absence of other specified parts of digestive tract; E03.9 Hypothyroidism, unspecified
CPT/HCPCS: 80053; 82607; 84443; 85025; 86300

== ENCOUNTER → 2019-05-02 10:32 | Outpatient (CLI) | payer MEDICARE, OTHER, SELFPAY ==
--- NOTE | 2019-05-02 10:34 | DI.CT.S_ITS ---
PROCEDURE: CT CHEST ABD PEL W CON INDICATIONS: f/u breast cancer TECHNIQUE: After the administration of oral and intravenous contrast, 5 mm thick sections acquired from the lung apices to the symphysis. 5 mm coronal and sagittal reformats were performed, with additional 7 mm coronal MIP reformats through the lungs. For radiation dose reduction, the following was used: automated exposure control, adjustment of mA and/or kV according to patient size. COMPARISON: [facility], CT, ABDOMEN/PELVIS WITH CONTRAST, 01/08/2017, 23:36. [facility], CT, CHEST/ABD/PEL WITH CONTRAST, 06/30/2017, 9:31. [facility], CT, CT CHEST ABD PEL W CON, 12/09/2018, 10:22. [facility], CT, CT CHEST ABD PEL W CON, 06/14/2018, 10:17. FINDINGS: Image quality: Excellent. CHEST: Lungs and pleura: No acute airspace opacities. No pleural effusions or pneumothorax. Central and peripheral airways appear patent and normal in caliber. Mediastinum: Heart size is normal. No pericardial effusion. No mediastinal or hilar adenopathy by size criteria. Thoracic aorta and central pulmonary arteries are normal in size. Esophagus is normal in caliber. No hiatal hernia. Chest wall: No axillary or supraclavicular adenopathy by size criteria. Postsurgical change of presumed mastectomy on the left. Thyroid gland is not well-seen. Scattered areas of mild sclerosis are focally present within several ribs, previously present on multiple prior CT scans without new lesions or traveler changer time. ABDOMEN: Solid organs: Liver is normal in size and enhancement. Gallbladder has been previously resected. Biliary system is non dilated. Pancreas enhances normally. Spleen is normal in size and enhancement. No adrenal nodules. Kidneys demonstrate normal size and enhancement, without hydronephrosis. Peritoneum and bowel: Bowel loops demonstrate normal wall thickness and caliber. No free fluid or air. Nodes and vessels: No retroperitoneal or mesenteric adenopathy by size criteria. Aorta and inferior vena cava are normal in size. Miscellaneous: No ventral hernias. Several scattered areas of sclerosis involving the thoracic and lumbosacral spine appear stable consistent with quiecent osseous metastatic disease. PELVIS: Genitourinary: Bladder wall thickness is normal. Miscellaneous: No inguinal hernias or adenopathy. Incidental note is made of a small omental ventral hernia, periumbilical, previously present without evidence of incarceration or strangulation and measuring only approximately 3 cm in maximal dimension. This is seen centered on series 2 image 88. Bones: No new suspicious bony lesions. No vertebral body compression fractures. IMPRESSION: No evidence of active metastatic disease related to prior breast carcinoma. Several scattered areas of sclerosis previously present on prior CT scans show findings expected from quiecent osseous metastatic disease involving ribs and portions of the spine, present on prior CT scanning from the past. Dictated by: Adan Dick M.D. on 05/02/2019 at 12:33 Approved by: Adan Dick M.D. on 05/02/2019 at 13:29
== END ==
PROVIDERS: PCP Family Medicine
DX: C50.919 Malignant neoplasm of unspecified site of unspecified female breast (principal); C79.51 Secondary malignant neoplasm of bone; K43.9 Ventral hernia without obstruction or gangrene; Z17.0 Estrogen receptor positive status [ER+]; Z90.49 Acquired absence of other specified parts of digestive tract
CPT/HCPCS: 71260; 74177; Q9967

== ENCOUNTER → 2019-06-14 10:03 | Outpatient (CLI) | payer MEDICARE, OTHER, SELFPAY ==
--- NOTE | 2019-06-14 10:05 | DI.NM.S_ITS ---
PROCEDURE: ME BONE SCAN WHOLE BODY RADIOPHARMACEUTICAL: 21.0 mCi Tc-99m MDP IV. INDICATIONS: f/u breast cancer TECHNIQUE: Delayed whole-body scintigrams were obtained approximately 3-4 hours after intravenous injection of radiotracer. Anterior and posterior views were acquired from vertex to feet. COMPARISON: [facility], CT, CT CHEST ABD PEL W CON, 12/23/2017, 11:02. [place], [place] BONE SCAN WHOLE BODY, 12/23/2017, 13:29. [place] BONE SCAN WHOLE BODY, 06/14/2018, 10:59. [facility], CT, CT CHEST ABD PEL W CON, 05/02/2019, 11:17. FINDINGS: Again noted are increased uptake in T7 vertebra, the left seventh and 10th ribs posterior laterally, the inferior tip of the left scapula and the medial head of the left clavicle, consistent with metastasies. Overall, there is no significant change. There is mild scoliosis. Foci of increased uptake in cervical, thoracic and lumbar spine demonstrate distribution indistinguishable from degenerative disc and facet disease; early metastasis to spine could be obscured by degenerative changes. There are foci of increased periarticular activity involving shoulders bilaterally, wrists bilaterally, both hands, hips bilaterally, knees bilaterally, and feet bilaterally, compatible IMPRESSION: Overall stable bone scan with abnormal uptake involving the T7 vertebral body, left seventh and 10th ribs, the inferior tip of the left scapula and medial head of the left clavicle. Dictated by: Chrissy Lacey M.D. on 06/14/2019 at 15:39 Approved by: Chrissy Lacey M.D. on 06/14/2019 at 18:00
[2019-06-14 11:02] LABS: Alanine Aminotransferase 16 IU/L (<35); Albumin Globulin Ratio 1.8 (1.0-2.8); Alkaline Phosphatase 53 U/L (38-126); Aspartate Aminotransferase 27 IU/L (14-36); BUN Creatinine Ratio 26.7 (6-22); Bilirubin Total 0.8 mg/dL (0.2-1.3); Blood Urea Nitrogen 24 mg/dL (7-17); Calcium 9.8 mg/dL (8.4-10.2); Carbon Dioxide 29 mmol/L (22-32); Chloride 103 mmol/L (98-107); Estimated Glomerular Filt Rate > 60.0 mL/min (>60); Globulin 2.2 g/dL (1.7-4.1); Glucose 72 mg/dL (80-110); HEMOLYSIS < 15 (0-50); Sodium 140 mmol/L (137-145); Total Protein 6.2 g/dL (6.3-8.2)
[2019-06-14 11:03] LABS: Add Manual Diff / Slide Review NO; Basophils Absolute Auto 0 /uL (0-100); Basophils Percent Auto 1.1 % (0-2); Eosinophils Absolute Auto 100 /uL (0-450); Eosinophils Percent Auto 4.5 % (2-4); Hematocrit 38.4 % (36-46); Hemoglobin 13.4 g/dL (12.0-16.0); Lymphocytes Absolute Auto 800 /uL (1100-4500); Lymphocytes Percent Auto 30.2 % (25-40); Mean Corpuscular HGB Conc 34.8 % (30-36); Mean Corpuscular Hemoglobin 35.9 PG (26-34); Mean Corpuscular Volume 103.2 fL (80-100); Monocytes Absolute Auto 200 /uL (0-900); Monocytes Percent Auto 8.1 % (3-14); Neutrophils Absolute Auto 1500 /uL (1500-7000); Neutrophils Percent Auto 56.1 % (50-75); Platelet Count 127 X10^3/uL (150-400); Red Blood Cell Count 3.72 X10^6/uL (4.0-5.2); Red Cell Distribution Width 13.6 % (11.6-14.8); White Blood Cell Count 2.7 X10^3/uL (4.5-11.0)
[2019-06-16 16:57] LABS: Cancer Antigen 27.29 56 U/mL (< 38)
== END ==
PROVIDERS: PCP Family Medicine
DX: C79.51 Secondary malignant neoplasm of bone (principal); Z85.3 Personal history of malignant neoplasm of breast
CPT/HCPCS: 78306; 80053; 85025; 86300; A9503

== ENCOUNTER → 2019-08-08 09:55 | Outpatient (CLI) | payer MEDICARE, OTHER, SELFPAY ==
[2019-08-08 10:31] LABS: Add Manual Diff / Slide Review NO; Basophils Absolute Auto 0 /uL (0-100); Eosinophils Absolute Auto 100 /uL (0-450); Eosinophils Percent Auto 4.7 % (2-4); Hematocrit 38.2 % (36-46); Hemoglobin 13.1 g/dL (12.0-16.0); Lymphocytes Absolute Auto 700 /uL (1100-4500); Lymphocytes Percent Auto 31.5 % (25-40); Mean Corpuscular HGB Conc 34.4 % (30-36); Mean Corpuscular Hemoglobin 35.6 PG (26-34); Mean Corpuscular Volume 103.5 fL (80-100); Monocytes Absolute Auto 200 /uL (0-900); Monocytes Percent Auto 7.8 % (3-14); Neutrophils Absolute Auto 1200 /uL (1500-7000); Platelet Count 161 X10^3/uL (150-400); Red Blood Cell Count 3.69 X10^6/uL (4.0-5.2); Red Cell Distribution Width 13.7 % (11.6-14.8); White Blood Cell Count 2.3 X10^3/uL (4.5-11.0)
[2019-08-08 10:48] LABS: Alanine Aminotransferase 16 IU/L (<35); Albumin 4.2 g/dL (3.5-5.0); Albumin Globulin Ratio 1.4 (1.0-2.8); Alkaline Phosphatase 57 U/L (38-126); Aspartate Aminotransferase 29 IU/L (14-36); BUN Creatinine Ratio 36.3 (6-22); Bilirubin Total 0.6 mg/dL (0.2-1.3); Blood Urea Nitrogen 29 mg/dL (7-17); Calcium 9.8 mg/dL (8.4-10.2); Carbon Dioxide 28 mmol/L (22-32); Chloride 104 mmol/L (98-107); Estimated Glomerular Filt Rate > 60.0 mL/min (>60); Glucose 81 mg/dL (80-110); HEMOLYSIS < 15 (0-50); Potassium 4.1 mmol/L (3.4-5.1); Sodium 139 mmol/L (137-145); Total Protein 7.2 g/dL (6.3-8.2)
[2019-08-10 14:57] LABS: Cancer Antigen 27.29 74 U/mL (< 38)
== END ==
PROVIDERS: PCP Family Medicine; Referring Provider Internal Medicine Hematology & Oncology; Visit Provider Internal Medicine Hematology & Oncology
DX: C50.919 Malignant neoplasm of unspecified site of unspecified female breast (principal)
CPT/HCPCS: 36415; 80053; 85025; 86300

== ENCOUNTER 2019-08-15 03:45 | Inpatient (IN) | payer MEDICARE, OTHER, SELFPAY ==
[2019-08-15 03:46] VITALS: BP 169/74; PULSE 57; RESP 16; TEMP 37.1; O2SAT 99
--- NOTE | 2019-08-15 03:47 | ED_ITS ---
HPI - Abdominal Pain General Chief Complaint: Abdominal Pain Stated Complaint: vomiting, thinks intestinal blockage, cramping Time Seen by Provider: 08/15/19 03:46 Source: patient Mode of arrival: Ambulatory Limitations: no limitations History of Present Illness HPI narrative: 79F non smoker with history of breast cancer, hyperlipidemia and prior bowel obstruction presents with a chief complaint of episodic right lower quadrant pain that is at times very severe and associated with nausea and vomiting. She denies any fever or chills. She states this feels similar to prior bowel obstructions. Her pain is worse with motion and improves with rest but she states it does seem to have episodes of rapid occasional or worsening without provocation. Related Data Home Medications Medication Instructions Recorded Confirmed ascorbic acid (vitamin C) 500 mg PO DAILY 01/04/18 07/19/19 cholecalciferol (vitamin D3) 3,000 3,000 unit PO DAILY 01/04/18 07/19/19 unit tablet [id number] 1 tab PO QAM tab 01/04/18 07/19/19 500 mg-200 mg tablet krill oil 350 mg PO DAILY 01/04/18 07/19/19 psyllium husk 2 cap PO PRN PRN 01/04/18 07/19/19 fulvestrant [Faslodex] 500 mg IM QMONTH 01/12/18 07/19/19 carica papaya [Papaya Enzyme] 1 tab PO DAILY 01/11/19 07/19/19 doxylamine succinate 25 mg tablet 25 mg PO BEDTIME 02/10/19 07/19/19 cyanocobalamin (vitamin B-12) 1,000 mcg DAILY 03/08/19 07/19/19 [Vitamin B-12] Previous Rx's Medication Instructions Recorded coenzyme Q10 100 mg capsule 100 mg PO DAILY #90 cap 02/01/18 melatonin 3 mg tablet 3 mg PO BEDTIME PRN #90 tab 02/01/18 palbociclib 100 mg PO DAILY #21 cap 11/30/18 Breast Prosthesis And Bra #2 each 12/14/18 hydrochlorothiazide 12.5 mg tablet 12.5 mg PO DAILY #90 tab 01/26/19 atorvastatin 10 mg tablet 5 mg PO DAILY #45 tab 02/25/19 levothyroxine 75 mcg tablet 75 mcg PO DAILY #90 tab 02/25/19 triamcinolone acetonide 0.1 % 1 applictn TOP BID #454 gram 04/26/19 topical cream Allergies Allergy/AdvReac Type Severity Reaction Status Date / Time levofloxacin AdvReac Mild DISORIENTED, Verified 01/27/19 13:26 HOT SPELLS, FLUSHED Review of Systems Constitutional Constitutional: Denies chills, Denies fatigue, Denies fever(s), Denies frequent falls, Denies lethargy and Denies weakness Eyes Eyes: Denies change in vision, Denies eye discharge, Denies irritation and Denies loss of vision ENT Ears, Nose, Mouth, and Throat: Denies change in voice, Denies dizziness, Denies neck pain, Denies sore throat and Denies throat swelling Cardiovascular Cardiovascular: Denies chest pain, Denies irregular heart rhythm, Denies lightheadedness, Denies palpitations, Denies dyspnea, Denies dyspnea on exertion and Denies orthopnea Respiratory Respiratory: Denies cough, Denies dyspnea, Denies dyspnea on exertion and Denies wheezing Gastrointestinal Gastrointestinal: Reports abdominal pain, Denies change in bowel habits, Denies diarrhea, Reports nausea and Denies vomiting Genitourinary Genitourinary: Denies hematuria, Denies flank pain, Denies urinary incontinence and Denies urinary urgency Musculoskeletal Musculoskeletal: Denies back pain, Denies muscle weakness, Denies neck pain, Denies numbness and Denies tingling Integumentary/Breasts Skin/Breast: Denies pruritus, Denies erythema, Denies rash and Denies wounds Neurologic Neurologic: Denies behavioral changes, Denies confusion, Denies dizziness, Denies frequent falls, Denies loss of vision, Denies numbness, Denies tingling and Denies weakness Psychiatric Psychiatric: Denies anxiety, Denies behavioral changes, Denies confusion, Denies depression, Denies homicidal ideation and Denies suicidal ideation Endocrine Endocrine: Denies fatigue, Denies flushing and Denies palpitations Hematologic/Lymphatic Hematologic/Lymphatic: Denies easy bruising Allergic/Immunologic Allergic/Immunologic: Denies urticaria, Denies throat swelling and Denies wheezing Patient History Medical History Abnormal chest x-ray (Chronic ~2015) Actinic keratosis (Chronic ~1998) Anemia (Chronic ~2015) Anxiety (Chronic) Atrial fibrillation (Chronic) Breast cancer (Chronic) Carpal tunnel syndrome (Chronic ~2009) Cataracts, bilateral (Chronic ~2003) Chicken pox (Resolved) Colon polyps (Chronic ~1994) Foot pain (Chronic ~1995) Frequent UTI (Chronic) Hay fever (Chronic ~1989) Hearing deficit (Chronic) History of recurrent ear infection (Chronic) Hypothyroidism (Chronic) Measles (Resolved) Mumps (Resolved) Osteoarthritis (Chronic ~1999) Osteopenia (Chronic) Osteoporosis (Chronic) Pleural effusion (Chronic) Pneumothorax (Chronic) Rheumatic fever (Resolved) Scoliosis (Chronic) Vertigo (Chronic ~1999) Vision disorder (Chronic) Surgical History Anesthesia (Resolved) History of arthroplasty (Resolved) History of cardiac radiofrequency ablation (RFA) History of cataract removal with insertion of prosthetic lens History of total mastectomy Status post appendectomy Status post arthroscopy Status post cholecystectomy Status post colectomy Status post craniotomy Status post hammer toe correction Thyroid nodule (Resolved ~2013) Family History Mother Heart disease Family/Other No problems noted. Sister No problems noted. Social History marital status: household members: spouse lives independently: Yes occupational status: other (retired) Smoking Status: Never smoker alcohol intake: current substance use type: does not use Smoking Status: Never smoker Exam Narrative Exam Narrative: GENERAL: [79] year old patient appears stated age. Well- nourished, well-developed patient, in mild distress. HEAD: Atraumatic. Normocephalic. EYES: Pupils equal round and reactive. Extraocular motions intact. No scleral icterus. No injection or drainage. ENT: Nose without bleeding, purulent drainage. Throat without erythema, tonsillar hypertrophy or exudate. Airway patent. NECK: Trachea midline. Non tender CARDIOVASCULAR: Regular rate and rhythm without murmurs, gallops, or rubs. RESPIRATORY: Clear to auscultation. Breath sounds equal bilaterally. No wheezes, rales, or rhonchi. GASTROINTESTINAL: Abdomen soft, severe tenderness right lower quadrant worse than others, nondistended. EXTREMITIES: No edema or joint tenderness. BACK: Nontender without deformity or crepitance. No flank tenderness. NEURO: AOx3. SKIN: No rash or erythema of visible areas Initial Vital Signs Initial Vital Signs: Vital Signs Temperature 98.7 F 08/15/19 03:46 Pulse Rate 57 L 08/15/19 03:46 Respiratory Rate 16 08/15/19 03:46 Blood Pressure 169/74 H 08/15/19 03:46 Pulse Oximetry 99 08/15/19 03:46 Course Orders Ordered: ED Orders 08/15/19 04:22 XR acute abdomen series Stat 08/15/19 04:41 CT abdomen pelvis w con Stat 08/15/19 04:53 Complete Blood Count AUTO DIFF Stat Comprehensive Metabolic Panel Stat Lactate (Lactic Acid) Stat Lipase Stat Sodium Chloride (Normal Saline 0.9%) 1,000 mls @ 150 mls/hr IV CONT HUNTER Last Admin: 08/15/19 05:01 Dose: 150 mls/hr Documented by: LES Sodium Chloride (Normal Saline 0.9%) 500 mls @ 1,000 mls/hr IV BOLUS ONE Stop: 08/15/19 07:10 Discontinued Medications Hydromorphone HCl (Dilaudid) 0.5 mg IV NOW ONE Stop: 08/15/19 06:42 Last Admin: 08/15/19 06:49 Dose: 0.5 mg Documented by: LES Ondansetron HCl (Zofran) 4 mg IV NOW ONE Stop: 08/15/19 04:22 Last Admin: 08/15/19 05:01 Dose: 4 mg Documented by: LES Vital Signs Vital signs: Vital Signs - 8 hr 08/15/19 03:46 Temperature 98.7 F Pulse Rate 57 L Respiratory Rate 16 Blood Pressure 169/74 H Pulse Oximetry 99 MDM - Abdominal Pain Lab Data Result diagrams: 08/15/19 04:53 08/15/19 04:53 Labs: Lab Results 08/15/19 08/15/19 08/15/19 Range/Units 04:53 04:53 04:53 WBC 2.9 L (4.5-11.0) X10^3/uL RBC 3.57 L (4.0-5.2) X10^6/uL Hgb 12.7 (12.0-16.0) g/dL Hct 36.8 (36-46) % MCV 103.0 H (80-100) fL MCH 35.7 H (26-34) PG MCHC 34.6 (30-36) % RDW 13.8 (11.6-14.8) % Plt Count 144 L (150-400) X10^3/uL Neut % (Auto) 73.8 (50-75) % Lymph % (Auto) 15.1 L (25-40) % Caroline % (Auto) 8.9 (3-14) % Eos % (Auto) 1.6 L (2-4) % Baso % (Auto) 0.6 (0-2) % Neut # (Auto) 2100 (2112-5216) /uL Lymph # (Auto) 400 L (8209-8643) /uL Caroline # (Auto) 300 (0-900) /uL Eos # (Auto) 0 (0-450) /uL Baso # (Auto) 0 (0-100) /uL Sodium 135 L (137-145) mmol/L Potassium 4.1 (3.4-5.1) mmol/L Chloride 101 (98-107) mmol/L Carbon Dioxide 29 (22-32) mmol/L BUN 27 H (7-17) mg/dL Creatinine 0.70 (0.52-1.04) mg/dL Estimated GFR > 60.0 (>60) mL/min BUN/Creatinine Ratio 38.6 H (6-22) Glucose 104 (80-110) mg/dL Lactate 0.8 (0.7-2.1) mmol/L Calcium 10.0 (8.4-10.2) mg/dL Total Bilirubin 0.7 (0.2-1.3) mg/dL AST 33 (14-36) IU/L ALT 16 (<35) IU/L Alkaline Phosphatase 50 (38-126) U/L Total Protein 6.8 (6.3-8.2) g/dL Albumin 4.0 (3.5-5.0) g/dL Globulin 2.8 (1.7-4.1) g/dL Albumin/Globulin Ratio 1.4 (1.0-2.8) Lipase 61 (23-300) U/L Imaging Data Abdominal x-ray: Attestation: I personally reviewed and interpreted this imaging study as follows: My Impression: Consistent with small-bowel obstruction CT scan - abdomen/pelvis: Radiologist's Impression: SBO with transition in RLQ Discharge Plan Departure Patient Disposition: Admitted As Inpatient Clinical Impression: Partial obstruction of small intestine Admit Date/Time: 08/15/19 06:49 Admit Provider: Iftikhar Grover
--- NOTE | 2019-08-15 04:22 | DI.RAD.S_ITS ---
PROCEDURE: XR ACUTE ABDOMEN SERIES INDICATIONS: severe, abdominal pain, history of obstruction TECHNIQUE: One view chest and two views of the abdomen were acquired. COMPARISON: [facility], CT, CT ABDOMEN PELVIS W CON, 08/15/2019, 5:28. [facility], CT, CT CHEST ABD PEL W CON, 05/02/2019, 11:17. [facility], CR, XR CHEST 1V, 01/27/2019, 14:15. FINDINGS: Surgical changes and devices: None. Chest: Nodular density is noted in the left midlung which could represent lung nodules or sclerotic rib metastasis. Heart size is normal. No pleural effusions. No pneumoperitoneum. Abdomen: Bowel gas pattern is nonspecific with mild gaseous distention of loop of bowel in the mid pelvis and small bowel air-fluid levels without differential height. No suspicious calcifications. Visualized solid organ contours appear normal. Multiple surgical clips project over the right lower quadrant. Bones: No suspicious bony lesions. IMPRESSION: 1. Nonspecific bowel gas pattern. If patient's symptoms persist or worsen, then CT scan of the abdomen/pelvis the considered for further evaluation. 2. Nodular densities in the left mid lung compatible with lung nodules versus sclerotic rib as bases. Recommend CT scan of the chest for further evaluation if clinically indicated. Dictated by: Angela Mccray MD, PhD on 08/15/2019 at 9:47 Approved by: Angela Mccray MD, PhD on 08/15/2019 at 9:50
--- NOTE | 2019-08-15 04:41 | DI.CT.S_ITS ---
PROCEDURE: CT ABDOMEN PELVIS W CON INDICATIONS: severe abdominal pain TECHNIQUE: After the administration of intravenous contrast, 5 mm thick sections acquired from the diaphragm to the symphysis. 5 mm coronal and sagittal reformats were acquired. For radiation dose reduction, the following was used: automated exposure control, adjustment of mA and/or kV according to patient size. COMPARISON: [facility], CT, ABDOMEN/PELVIS WITH CONTRAST, 01/08/2017, 23:36. FINDINGS: Image quality: Excellent. ABDOMEN: Lung bases: Lung bases are clear. Heart size is normal. Solid organs: Liver is normal in size and enhancement. Gallbladder is surgically absent.. Biliary system is non dilated. Pancreas enhances normally. Spleen is normal in size and enhancement. A cystic lesion of the spleen measuring 2.1 cm has developed since the prior study, of uncertain etiology. No adrenal nodules. Kidneys demonstrate normal size and enhancement, without hydronephrosis. Peritoneum and bowel: Distal small bowel obstruction with loops measuring up to 3.7 cm, with a transition point in the right lower quadrant. Nodes and vessels: No retroperitoneal or mesenteric adenopathy by size criteria. Aorta and inferior vena cava are normal in size. Miscellaneous: Small periumbilical hernia containing fat. Small midline ventral hernia near the inferior aspect of the left lobe of the liver, containing fat. PELVIS: Genitourinary: Bladder wall thickness is normal. Miscellaneous: No inguinal hernias or adenopathy. Bones: Interval development of a ill-defined sclerotic process involving the right posterior L2 vertebral body and right L2 pedicle, possibly representing development of sclerotic metastatic disease. Development of a smaller sclerotic process involving the right posterior superior aspect of the L1 vertebral body. Stable sclerosis of the symphysis pubis region, likely representing osteitis pubis. The Grade 1 mild anterolisthesis of L4 on L5 and L3 on L4. IMPRESSION: 1. Distal small bowel obstruction. 2. Findings suspicious for interval development of bony metastatic disease. Comment: Consider nonemergent lumbar spine MRI. Comment: Preliminary interpretation provided by [facility]. Comment: The presence of possible bony metastatic disease was discussed with Dr. Ogden at the time of study dictation. Dictated by: Dejan Lozoya M.D. on 08/15/2019 at 7:43 Approved by: Dejan Lozoya M.D. on 08/15/2019 at 8:04
[2019-08-15 05:01] LABS: Add Manual Diff / Slide Review NO; Basophils Absolute Auto 0 /uL (0-100); Basophils Percent Auto 0.6 % (0-2); Eosinophils Absolute Auto 0 /uL (0-450); Eosinophils Percent Auto 1.6 % (2-4); Hematocrit 36.8 % (36-46); Hemoglobin 12.7 g/dL (12.0-16.0); Lymphocytes Absolute Auto 400 /uL (1100-4500); Lymphocytes Percent Auto 15.1 % (25-40); Mean Corpuscular HGB Conc 34.6 % (30-36); Mean Corpuscular Hemoglobin 35.7 PG (26-34); Monocytes Absolute Auto 300 /uL (0-900); Monocytes Percent Auto 8.9 % (3-14); Neutrophils Absolute Auto 2100 /uL (1500-7000); Neutrophils Percent Auto 73.8 % (50-75); Platelet Count 144 X10^3/uL (150-400); Red Blood Cell Count 3.57 X10^6/uL (4.0-5.2); Red Cell Distribution Width 13.8 % (11.6-14.8); White Blood Cell Count 2.9 X10^3/uL (4.5-11.0)
[2019-08-15] MEDS: SODIUM CHLORIDE 0.9% 1,000 ML 150 ML IV ×2 (05:01→16:59)
[2019-08-15] MEDS: ONDANSETRON 4 MG/2 ML INJ IV ×3 (05:01→16:52)
[2019-08-15 05:11] LABS: Alanine Aminotransferase 16 IU/L (<35); Albumin Globulin Ratio 1.4 (1.0-2.8); Alkaline Phosphatase 50 U/L (38-126); Aspartate Aminotransferase 33 IU/L (14-36); BUN Creatinine Ratio 38.6 (6-22); Bilirubin Total 0.7 mg/dL (0.2-1.3); Blood Urea Nitrogen 27 mg/dL (7-17); Carbon Dioxide 29 mmol/L (22-32); Chloride 101 mmol/L (98-107); Estimated Glomerular Filt Rate > 60.0 mL/min (>60); Globulin 2.8 g/dL (1.7-4.1); Glucose 104 mg/dL (80-110); HEMOLYSIS 50 (0-50); Lipase 61 U/L (23-300); Potassium 4.1 mmol/L (3.4-5.1); Sodium 135 mmol/L (137-145); Total Protein 6.8 g/dL (6.3-8.2)
[2019-08-15 05:14] LABS: Lactate (Lactic Acid) 0.8 mmol/L (0.7-2.1)
[2019-08-15] MEDS: HYDROMORPHONE 0.5 MG INJ IV (06:49)
[2019-08-15] MEDS: LORazepam 2 MG/ML INJ 0.5 MG IV (08:18)
[2019-08-15 08:35] VITALS: BP 126/58; PULSE 58; RESP 18; O2SAT 98
[2019-08-15 08:45] VITALS: BP 128/85; PULSE 56; RESP 16; TEMP 36.2; O2SAT 94
--- NOTE | 2019-08-15 10:28 | P.HP_ITS ---
History of Present Illness History of Present Illness Date Patient Seen: 08/15/19 Time Patient Seen: 09:15 Chief complaint: vomiting, thinks intestinal blockage, cramping Narrative: Manda Garcia is an 79-year-old female with past medical history of recurrent breast cancer with bony metastasis, osteoporosis, hyperlipidemia, and hypothyroidism, appendiceal carninoma s/p hemicolectomy who presented with bilateral lower quadrant abdominal pain, nausea, and vomiting starting early this morning. Patient states that she began developing bilateral lower quadrant pain starting early this morning, waking her up. The abdominal pain was bilateral lower quadrants, initially crampy, then somewhat sharp and radiating around to her back. She then had an episode of nausea and had an episode of non bloody nonbilious emesis. She has had previous bowel obstruction, and reports the symptoms as similar to her previous episodes. She last required hospitalization 3 years ago for bowel obstruction, but over the past few years she has had intermittent abdominal pain consistent with this episode about 1-2 times per year that resolved on its own. Her last bowel movement movement was actually this morning, but recently her stools have been hard. She has not passed any gas since this morning. She denies any melena or hematochezia. She further denies any coffee-ground emesis or hematemesis. She denies any recent fevers, chills, shortness of breath, cough, chest pain, lower extremity edema or swelling. She does have a chronic lower extremity neuropathy which has been recently unchanged. In the emergency room her vital signs were unremarkable. Labs notable for a WBC of 2.9, platelet 144, sodium 135, lipase 61 and otherwise normal labs. She had an abdominal CT scan which showed a distal small-bowel obstruction with a transition point as well as progressive metastatic lesions in her spine. An NG- tube was inserted, but only 75 cc fluid was removed after insertion. Upon arrival to the floor, she is comfortable-appearing and NG tube continues to have minimal clear output. She is currently pending surgical evaluation. Patient History Medical History Abnormal chest x-ray (Chronic ~2015) Actinic keratosis (Chronic ~1998) Anemia (Chronic ~2015) Anxiety (Chronic) Atrial fibrillation (Chronic) Breast cancer (Chronic) Carpal tunnel syndrome (Chronic ~2009) Cataracts, bilateral (Chronic ~2003) Chicken pox (Resolved) Colon polyps (Chronic ~1994) Foot pain (Chronic ~1995) Frequent UTI (Chronic) Hay fever (Chronic ~1989) Hearing deficit (Chronic) History of recurrent ear infection (Chronic) Hypothyroidism (Chronic) Measles (Resolved) Mumps (Resolved) Osteoarthritis (Chronic ~1999) Osteopenia (Chronic) Osteoporosis (Chronic) Pleural effusion (Chronic) Pneumothorax (Chronic) Rheumatic fever (Resolved) Scoliosis (Chronic) Vertigo (Chronic ~1999) Vision disorder (Chronic) Surgical History Anesthesia (Resolved) History of arthroplasty (Resolved) History of cardiac radiofrequency ablation (RFA) History of cataract removal with insertion of prosthetic lens History of total mastectomy Status post appendectomy Status post arthroscopy Status post cholecystectomy Status post colectomy Status post craniotomy Status post hammer toe correction Thyroid nodule (Resolved ~2013) Family & Social History Family History Mother Heart disease Family/Other No problems noted. Sister No problems noted. Social History: household members spouse lives independently Yes Safety & Behavioral: Feels Safe in Current Yes Environment Been Physically Hurt or No Threatened By a Person Tobacco & Substance use: Smoking Status Never smoker alcohol intake current Substance Use Type does not use Meds Home Medications and Allergies Home Medications Medication Instructions Recorded Confirmed Type ascorbic acid (vitamin C) 500 mg PO DAILY 01/04/18 07/19/19 History cholecalciferol (vitamin D3) 3,000 3,000 unit PO DAILY 01/04/18 07/19/19 History unit tablet [id number] 1 tab PO QAM tab 01/04/18 07/19/19 History 500 mg-200 mg tablet krill oil 350 mg PO DAILY 01/04/18 07/19/19 History psyllium husk 2 cap PO PRN PRN 01/04/18 07/19/19 History fulvestrant [Faslodex] 500 mg IM QMONTH 01/12/18 07/19/19 History coenzyme Q10 100 mg capsule 100 mg PO DAILY #90 cap 02/01/18 07/19/19 Rx melatonin 3 mg tablet 3 mg PO BEDTIME PRN #90 tab 02/01/18 07/19/19 Rx palbociclib 100 mg PO DAILY #21 cap 11/30/18 07/19/19 Rx Breast Prosthesis And Bra #2 each 12/14/18 05/27/19 Rx carica papaya [Papaya Enzyme] 1 tab PO DAILY 01/11/19 07/19/19 History hydrochlorothiazide 12.5 mg tablet 12.5 mg PO DAILY #90 tab 01/26/19 07/19/19 Rx doxylamine succinate 25 mg tablet 25 mg PO BEDTIME 02/10/19 07/19/19 History atorvastatin 10 mg tablet 5 mg PO DAILY #45 tab 02/25/19 07/19/19 Rx levothyroxine 75 mcg tablet 75 mcg PO DAILY #90 tab 02/25/19 07/19/19 Rx cyanocobalamin (vitamin B-12) 1,000 mcg DAILY 03/08/19 07/19/19 History [Vitamin B-12] triamcinolone acetonide 0.1 % 1 applictn TOP BID #454 gram 04/26/19 07/19/19 Rx topical cream Allergies Allergy/AdvReac Type Severity Reaction Status Date / Time levofloxacin AdvReac Mild DISORIENTED, Verified 01/27/19 13:26 HOT SPELLS, FLUSHED Review of Systems Review of Systems Narrative: All other systems reviewed with the patient and are negative unless otherwise stated. Exam Vital Signs (past 8 hours): - 08/15/19 03:46 08/15/19 08:35 Temperature 98.7 F Pulse Rate 57 L 58 L Respiratory Rate 16 18 Blood Pressure 169/74 H Blood Pressure [Left Arm] 126/58 L Pulse Oximetry 99 98 Oxygen Delivery Method Nasal Cannula Oxygen Flow Rate 2 Narrative Exam Narrative: GENERAL APPEARANCE: Well developed, well nourished, in no acute distress. SKIN: Inspection of the skin reveals no rashes, ulcerations or petechiae. HEENT: Oral mucosa moist, NG tube in place with clear output. EOMI, sclerae anicteric. NECK: Supple and symmetric. There was no thyroid enlargement, and no tenderness, or masses were felt. CHEST: Normal AP diameter and normal contour without any kyphoscoliosis. LUNGS: Auscultation of the lungs revealed no wheezes, rhonchi, or rales. CARDIOVASCULAR: There was a regular rate and rhythm without any murmurs, gallops, rubs. Peripheral pulses were 2+ and symmetric. ABDOMEN: Soft and minimally tender over the area of an abdominal wall hernia, nondistended. MUSCULOSKELETAL: There was no tenderness or effusions noted. Muscle strength and tone were normal. EXTREMITIES: No cyanosis, clubbing or edema. NEUROLOGIC: Alert and oriented x 3. Normal affect. Strength is +5/5 in the Upper Extremities and Lower Extremities Bilaterally. Bilateral diminished sensation to light touch in her lower extremities, no other sensory or motor deficits. Objective Labs Result Diagrams: 08/15/19 04:53 08/15/19 04:53 Labs: Laboratory Results - last 24 hr 08/15/19 08/15/19 08/15/19 04:53 04:53 04:53 WBC 2.9 L RBC 3.57 L Hgb 12.7 Hct 36.8 MCV 103.0 H MCH 35.7 H MCHC 34.6 RDW 13.8 Plt Count 144 L Neut % (Auto) 73.8 Lymph % (Auto) 15.1 L [place] % (Auto) 8.9 Eos % (Auto) 1.6 L Baso % (Auto) 0.6 Neut # (Auto) 2100 Lymph # (Auto) 400 L [place] # (Auto) 300 Eos # (Auto) 0 Baso # (Auto) 0 Sodium 135 L Potassium 4.1 Chloride 101 Carbon Dioxide 29 BUN 27 H Creatinine 0.70 Estimated GFR > 60.0 BUN/Creatinine Ratio 38.6 H Glucose 104 Lactate 0.8 Calcium 10.0 Total Bilirubin 0.7 AST 33 ALT 16 Alkaline Phosphatase 50 Total Protein 6.8 Albumin 4.0 Globulin 2.8 Albumin/Globulin Ratio 1.4 Lipase 61 Assessment & Plan Assessment & Plan narrative: Manda Garcia is an 79-year-old female with past medical history of recurrent breast cancer with bony metastasis, osteoporosis, hyperlipidemia, and hypothyroidism who presented with bilateral lower quadrant abdominal pain, nausea, and vomiting starting early this morning. She is admitted for a small-bowel obstruction, likely secondary to adhesions given her surgical history. She does have an abdominal wall hernia, however there does not appear to be any bowel in this hernia on her CT scan. 1. Distal Small-bowel obstruction, acute, present on admission - -continue NPO and IV fluids, if continues to have low output from her NG tube can likely discontinue this and trial on clears pending Surgical evaluation with Dr. Vincent. -appreciate surgical assistance with management, Dr. Vincent. Evaluation currently pending. -likely component of chronic constipation as well, will need to start a decent bowel regimen once able to tolerate PO intake. 2. Recurrent breast cancer with bony metastases, active -resume home medications once able to tolerate p.o. intake -CT abdomen did showed new/progressive lesions in her spine. She has no evidence on exam of new neurological deficits. She will need an outpatient MRI and continued follow-up with her oncologist. 3. Hypothyroidism, chronic -continue home levothyroxine 4. Hyperlipidemia, chronic -continue home statin once tolerating p.o. intake 5. Leukopenia, chronic, stable -patient appears to have a chronic low WBC count, currently 2.9. This is likely due to her ongoing breast cancer treatment. She does not currently have neutropenia. Code: Full, elects surrogate decision maker to be her and/or son DVT: Lovenox daily Dispo: Admit under observation status as her stay is not likely to exceed 2 midnights at this time, however her ultimate disposition will depend on her symptoms going forward.
[2019-08-15 12:56] VITALS: BMI 22.2
[2019-08-15 13:31] VITALS: BP 147/69; PULSE 72; RESP 16; TEMP 36.1; O2SAT 96
--- NOTE | 2019-08-15 15:07 | DI.RAD.S_ITS ---
PROCEDURE: FL SMALL BOWEL FOLLOW THROUGH INDICATIONS: sbo. Dx /therapeutic COMPARISON: None. FINDINGS: Small bowel: There is slightly delayed a transit time of barium through the small bowel. Small bowel loops are distended measures up to 4.5 cm in diameter. Mucosal folds are smooth and of normal thickness. No strictures, intraluminal masses, or extrinsic mass effects are noted. Oral contrast is visualized in transverse colon and splenic flexure after 3 hours. IMPRESSION: Finding is suggestive of resolving small bowel obstruction. No contrast extravasation no gross free air. Dictated by: Eben Santos M.D. on 08/15/2019 at 20:26 Approved by: Eben Santos M.D. on 08/15/2019 at 20:28
--- NOTE | 2019-08-15 15:26 | PM.CN ---
History of Present Illness Consult details Date Patient Seen: 08/15/19 Time Patient Seen: 15:20 Chief complaint: vomiting, thinks intestinal blockage, cramping Reason for consult: sbo Requesting provider: Mesfin Renee Narrative: The patient is woman who has periodically partial obstructions. She was developing symptoms of lower abdominal pain and nausea and came to the ER is this is fairly typical of how her small-bowel obstruction symptoms begin. Last bowel movement and gas were this morning. She has had an appendectomy followed by colon resection for what I believe was appendiceal cancer. She also has metastatic breast cancer and is under treatment. She has bony involvement at this time and her chief complaint is actually back pain rather than abdominal pain Meds Home Medications and Allergies Home Medications Medication Instructions Recorded Confirmed Type ascorbic acid (vitamin C) 1,000 mg PO DAILY 01/04/18 08/15/19 History cholecalciferol (vitamin D3) 3,000 3,000 unit PO DAILY 01/04/18 08/15/19 History unit tablet krill oil 500 mg PO DAILY 01/04/18 08/15/19 History psyllium husk 1 cap PO PRN PRN 01/04/18 08/15/19 History fulvestrant [Faslodex] 500 mg IM QMONTH 01/12/18 08/15/19 History melatonin 3 mg tablet 3 mg PO BEDTIME PRN #90 tab 02/01/18 08/15/19 Rx palbociclib 100 mg PO DAILY #21 cap 11/30/18 08/15/19 Rx Breast Prosthesis And Bra #2 each 12/14/18 08/15/19 Rx carica papaya [Papaya Enzyme] 3 tab PO DAILY 01/11/19 08/15/19 History hydrochlorothiazide 12.5 mg tablet 12.5 mg PO DAILY #90 tab 01/26/19 08/15/19 Rx atorvastatin 10 mg tablet 5 mg PO DAILY #45 tab 02/25/19 08/15/19 Rx levothyroxine 75 mcg tablet 75 mcg PO DAILY #90 tab 02/25/19 08/15/19 Rx cyanocobalamin (vitamin B-12) 1,000 mcg DAILY 03/08/19 08/15/19 History [Vitamin B-12] triamcinolone acetonide 0.1 % 1 applictn TOP BID #454 gram 04/26/19 08/15/19 Rx topical cream calcium citrate-vitamin D3 1 tab PO DAILY 08/15/19 08/15/19 History [Citracal Regular] coenzyme Q10 [Co Q-10] 300 mg PO DAILY 08/15/19 08/15/19 History Allergies Allergy/AdvReac Type Severity Reaction Status Date / Time levofloxacin AdvReac Mild DISORIENTED, Verified 01/27/19 13:26 HOT SPELLS, FLUSHED Review of Systems Review of Systems Narrative: No cough or cold. She does have back pain. She has had no radiation to her back that she is aware of. No seizures or blackouts. She is not particularly interested any abdominal operation due to her status of her breast cancer and age. Exam Vital Signs (past 8 hours): - 08/15/19 08:35 08/15/19 08:45 08/15/19 13:31 Temperature 97.1 F L 97 F L Pulse Rate 58 L 56 L 72 Respiratory Rate 18 16 16 Blood Pressure 128/85 147/69 H Blood Pressure [Left Arm] 126/58 L Pulse Oximetry 98 94 96 Oxygen Delivery Method Nasal Cannula Oxygen Flow Rate 0 Narrative Exam Narrative: Pleasant cooperative woman in no apparent distress. Her lungs are clear to auscultation. No rales or rhonchi. Heart regular rate and rhythm no murmur gallop. Abdomen sexually scaphoid and soft. No tenderness guarding. She has a midline scar noted. Objective Labs Result Diagrams: 08/15/19 04:53 08/15/19 04:53 Labs: Laboratory Results - last 24 hr 08/15/19 08/15/19 08/15/19 04:53 04:53 04:53 WBC 2.9 L RBC 3.57 L Hgb 12.7 Hct 36.8 MCV 103.0 H MCH 35.7 H MCHC 34.6 RDW 13.8 Plt Count 144 L Neut % (Auto) 73.8 Lymph % (Auto) 15.1 L [place] % (Auto) 8.9 Eos % (Auto) 1.6 L Baso % (Auto) 0.6 Neut # (Auto) 2100 Lymph # (Auto) 400 L [place] # (Auto) 300 Eos # (Auto) 0 Baso # (Auto) 0 Sodium 135 L Potassium 4.1 Chloride 101 Carbon Dioxide 29 BUN 27 H Creatinine 0.70 Estimated GFR > 60.0 BUN/Creatinine Ratio 38.6 H Glucose 104 Lactate 0.8 Calcium 10.0 Total Bilirubin 0.7 AST 33 ALT 16 Alkaline Phosphatase 50 Total Protein 6.8 Albumin 4.0 Globulin 2.8 Albumin/Globulin Ratio 1.4 Lipase 61 Assessment & Plan Assessment & Plan narrative: CT scan reviewed. Patient appears to have dilated small bowel and a fair amount of stool in her colon. Stomach was not particularly enlarged. NG tube is been placed for drainage. Will begin a small-bowel follow-through with water-soluble contrast. Hopefully this will transit through an open her intestines back up. I have discussed this with the patient. I asked her to think about whether she would want an operation if the difference was between life and . Hopefully we will not reach that point however as I suspect that this period of observation will be like others that she has had.
[2019-08-15 16:30] VITALS: BP 150/71; PULSE 64; RESP 16; TEMP 37.2; O2SAT 96
[2019-08-15] MEDS: PANTOPRAZOLE 40 MG VIAL IV (16:52)
[2019-08-15] MEDS: OXYMETAZOLINE NASAL SPRAY 30 ML 2 SPRAYS NASAL (18:09)
[2019-08-15 21:19] VITALS: BP 147/76; PULSE 71; RESP 15; TEMP 37.6; O2SAT 94
[2019-08-16] VITALS (7 sets, daily range): BP systolic 121–149; BP diastolic 54–73; PULSE 59–82; RESP 16–18; TEMP 36.3–37.4; O2SAT 92–99
[2019-08-16] MEDS: SODIUM CHLORIDE 0.9% 1,000 ML 80 ML IV ×2 (00:24→12:46)
--- NOTE | 2019-08-16 01:54 | PC.NURSE ---
Addendum entered by Dayna Oshea R.N. 08/16/19 05:52: Non measureable amount of NG contents in cannister this morning. Noted fluid color has changed from dark red to more brown/bile color again. Patient denies pain. Original Note: Patient seen and assessed at 2345. At shift change noted to have small amount red liquid in NG tubing so verified NG to LIS and will continue to observe. Is alert and oriented. Breath sounds CTA with RA sat of 94%. HRR. Denies nausea. NG patent in left nare. BT very hypoactive and denies any flatus. Able to move self in bed. Assisted to BSC with SBA. Voiding without dysuria, frequency or urgency. Denies pain except for occasional twinge in LUQ. Fall risk score is moderate and bed alarm is activated for patient safety; verbalizes agreement/understanding.
[2019-08-16 05:38] LABS: Add Manual Diff / Slide Review NO; Basophils Absolute Auto 0 /uL (0-100); Basophils Percent Auto 0.5 % (0-2); Eosinophils Absolute Auto 0 /uL (0-450); Eosinophils Percent Auto 1.2 % (2-4); Hematocrit 36.5 % (36-46); Hemoglobin 12.5 g/dL (12.0-16.0); Lymphocytes Absolute Auto 800 /uL (1100-4500); Lymphocytes Percent Auto 23.9 % (25-40); Mean Corpuscular HGB Conc 34.1 % (30-36); Mean Corpuscular Hemoglobin 35.5 PG (26-34); Mean Corpuscular Volume 104.1 fL (80-100); Monocytes Absolute Auto 500 /uL (0-900); Monocytes Percent Auto 13.2 % (3-14); Neutrophils Absolute Auto 2100 /uL (1500-7000); Neutrophils Percent Auto 61.2 % (50-75); Platelet Count 148 X10^3/uL (150-400); Red Blood Cell Count 3.51 X10^6/uL (4.0-5.2); White Blood Cell Count 3.5 X10^3/uL (4.5-11.0)
[2019-08-16 05:46] LABS: BUN Creatinine Ratio 21.4 (6-22); Blood Urea Nitrogen 15 mg/dL (7-17); Calcium 8.6 mg/dL (8.4-10.2); Carbon Dioxide 26 mmol/L (22-32); Chloride 107 mmol/L (98-107); Estimated Glomerular Filt Rate > 60.0 mL/min (>60); Glucose 100 mg/dL (80-110); HEMOLYSIS < 15 (0-50); Magnesium 2.1 mg/dL (1.6-2.3); Potassium 3.7 mmol/L (3.4-5.1); Sodium 139 mmol/L (137-145)
[2019-08-16 06:08] LABS: TSH w/ Reflex to FT4 0.51 uIU/mL (0.47-4.68)
--- NOTE | 2019-08-16 08:50 | CM.DANOTE ---
Addendum entered by Jacey Calvo LPN 08/16/19 13:37: Picked up a vm from Kimberley saying the Dr. Calix had given more though to this pt's POC and would not be seeing her in the hospital as per prior information but would see her sometime later this month in clinic. Left a vm for her to request that she or someone else in oncology call pt on her cell (she has it with her at bedside) or come over to her room to go over the onc plan with her. Addendum entered by Jacey Calvo LPN 08/16/19 09:02: Onc REINA Chu confirms: Dr. Calix will be here about 1230 today to see pt. Original Note: Discharge Planning/Care Management DCP: assessment: case received, EMR reviewed and met with pt. Introduced self and role. Pt is an 79 year old female who admissted yesterday to care of hospitalist team. PCP: Dr. Bush Oncologist: Dr. Calix/[facility] (pt in active treatement for recurrent breast cancers with mets to bone). Consulting: [facility]: Dr. Vincent and mala partners Pt notes concern re any discussion of surgical intervention for her small bowel obstruction.j She also notes she was to have treatment today at the Onc center and did leave a message for Dr. Calix asking what she should do. One of the staff told me that he would probably see me in the hospital. Offered to call Onc REINA Chu to update her on pt's admission/done: Kimberley will check with Dr. Calix and see if he is planning to see pt in hospital. P: DCPlanning team will follow as POC unfolds and assist with any d/c needs that may arise. NGT currently in place. CM Discharge Assessment Start: 08/16/19 08:48 Freq: Status: Active Protocol: Document 08/16/19 08:48 ITV (Rec: 08/16/19 08:50 ITV [id number]) Discharge Planning Assessment Advance Directives? Yes History Provided By Patient,Medical Record Has Patient been admitted in last 30 No days? Prior Living Arrangements House Household Members spouse Independent with ADL's Yes Is patient alert and oriented? Yes Whiteboard Updated in Patient Room with Yes name and ext. # of Endband Sizer Review Status In Process
[2019-08-16] MEDS: PANTOPRAZOLE 40 MG VIAL IV (09:25)
[2019-08-16] MEDS: ENOXAPARIN 40 MG/0.4 ML SYRINGE SUBCUT (09:25)
--- NOTE | 2019-08-16 10:18 | PC.NURSE ---
Addendum entered by Chary Jimenez R.N. 08/16/19 12:49: At 1245, pt tolerating sips of water and tea, did not want jello or broth at this time. Pt aware diet is advance as tolerated. Addendum entered by Chary Jimenez R.N. 08/16/19 12:06: Approx 50mls present in NGT canister, dark brown. Verbal order rec'd from Dr. Renee around 1100 to remove NGT, keep IVF as ordered, order rec'd to advance diet as tolerated. NGT removed around 1145 by [employer] [employer] [facility] student life coordinator Chante and her Instructor. Follow up after removal, pt aware to start slow with her liquids, had inc and moderate soft liquid BM on BSC. Original Note: Day Shift- Spoke with Dr. Renee at 1010 regarding rounds. Request for cepacol lozenges prn rec'd. Also order to have NGT to LIS. May clamp NGT to have pt ambulate in halls. Currently NGT to LIS, approx 80 low suction. NPO, pt encouraged to use mouth moisturizer. Reports lower abd cramping 3/10, states feeling a little bloated, abd hernia to mid abd, non distressing. Bed alarm on, pt calls for assist appropriately.
--- NOTE | 2019-08-16 11:41 | PM.PN.1 ---
Subjective Subjective Date Patient Seen: 08/16/19 Time Patient Seen: 11:42 Interval history: Manda Garcia is an 79-year-old female with past medical history of recurrent breast cancer with bony metastasis, osteoporosis, hyperlipidemia, and hypothyroidism, appendiceal carninoma s/p hemicolectomy who is admitted for a small-bowel obstruction. She underwent a small-bowel follow-through which showed a resolving small bowel obstruction with flow into her colon. She surprisingly had only a smear overnight and is passing a small amount of gas today. She had minimal output from her NG tube. Discussed with Dr. Vincent and will remove NG tube and begin to advance diet as tolerated. She still complains of a small amount of abdominal cramping, reports her back pain is improved as well. She denies any fevers, chills, she has been having rhinorrhea with the NG tube leading to a cough and sore throat. This should resolve once the NG tube is removed. Exam Vital Signs (past 8 hours): - 08/16/19 05:42 08/16/19 09:00 Temperature 97.4 F L 98.6 F Pulse Rate 82 68 Respiratory Rate 16 18 Blood Pressure 131/67 140/73 Pulse Oximetry 92 96 Oxygen Delivery Method Room Air Oxygen Flow Rate 0 Narrative Exam Narrative: GENERAL APPEARANCE: Well developed, well nourished, in no acute distress. SKIN: Inspection of the skin reveals no rashes, ulcerations or petechiae. HEENT: Oral mucosa moist, NG tube in place with clear output. EOMI, sclerae anicteric. NECK: Supple and symmetric. There was no thyroid enlargement, and no tenderness, or masses were felt. CHEST: Normal AP diameter and normal contour without any kyphoscoliosis. LUNGS: Auscultation of the lungs revealed no wheezes, rhonchi, or rales. CARDIOVASCULAR: There was a regular rate and rhythm without any murmurs, gallops, rubs. Peripheral pulses were 2+ and symmetric. ABDOMEN: Soft and minimally tender over the area of an abdominal wall hernia, nondistended. MUSCULOSKELETAL: There was no tenderness or effusions noted. Muscle strength and tone were normal. EXTREMITIES: No cyanosis, clubbing or edema. NEUROLOGIC: Alert and oriented x 3. Normal affect. Strength is +5/5 in the Upper Extremities and Lower Extremities Bilaterally. Bilateral diminished sensation to light touch in her lower extremities, no other sensory or motor deficits. Objective Labs Result Diagrams: 08/16/19 05:10 08/16/19 05:10 Labs: Laboratory Results - last 24 hr 08/16/19 08/16/19 08/16/19 05:10 05:10 05:10 WBC 3.5 L RBC 3.51 L Hgb 12.5 Hct 36.5 MCV 104.1 H MCH 35.5 H MCHC 34.1 RDW 14.0 Plt Count 148 L Neut % (Auto) 61.2 Lymph % (Auto) 23.9 L [place] % (Auto) 13.2 Eos % (Auto) 1.2 L Baso % (Auto) 0.5 Neut # (Auto) 2100 Lymph # (Auto) 800 L [place] # (Auto) 500 Eos # (Auto) 0 Baso # (Auto) 0 Sodium 139 Potassium 3.7 Chloride 107 Carbon Dioxide 26 BUN 15 Creatinine 0.70 Estimated GFR > 60.0 BUN/Creatinine Ratio 21.4 Glucose 100 Calcium 8.6 Magnesium 2.1 TSH 0.51 Assessment & Plan Assessment & Plan narrative: Manda Garcia is an 79-year-old female with past medical history of recurrent breast cancer with bony metastasis, osteoporosis, hyperlipidemia, and hypothyroidism who presented with bilateral lower quadrant abdominal pain, nausea, and vomiting starting early this morning. She is admitted for a small-bowel obstruction, likely secondary to adhesions given her surgical history. She does have an abdominal wall hernia, however there does not appear to be any bowel in this hernia on her CT scan. 1. Distal Small-bowel obstruction, acute, present on admission - -patient underwent small-bowel follow-through on 08/15/2019, which showed resolving SBO. There was contrast that progressed into her colon. -appreciate surgical assistance with management, Dr. Vincent. -will remove NG tube and begin to work on constipation which is noted on her CT imaging once she is reliably tolerating clears. It is somewhat surprising that she did not have any bowel movements after small-bowel follow-through. -advance diet as tolerated, continue IV fluids until tolerating clears. 2. Recurrent breast cancer with bony metastases, active -resume home medications once able to tolerate p.o. intake -CT abdomen did showed new/progressive lesions in her spine. She has no evidence on exam of new neurological deficits. She will need an outpatient MRI and continued follow-up with her oncologist. -patient's oncologist, Dr. Calix, plans to visit her in the hospital today. 3. Hypothyroidism, chronic -continue home levothyroxine 4. Hyperlipidemia, chronic -continue home statin once tolerating p.o. intake 5. Leukopenia, chronic, stable -patient appears to have a chronic low WBC count which has been stable. This is likely due to her ongoing breast cancer treatment. She does not currently have neutropenia. Code: Full, elects surrogate decision maker to be her and/or son DVT: Lovenox daily Dispo: Anticipate discharge in the next 1-2 days once tolerating adequate PO intake and having bowel movements.
--- NOTE | 2019-08-16 12:20 | PC.NURSE ---
11:45 AM 08/16/2019: removed NG Tube with provider permission and supervision of Melinda, clinical instructor. Pt tolerated well. 50cc of fluid in canister, all parts in tact. Pt requesting to begin clear liquids with tea and water.
[2019-08-16] MEDS: BENZOCAINE/MENTHOL 1 LOZ PKT 1 EACH PO (16:27)
--- NOTE | 2019-08-16 18:16 | PC.NURSE ---
Raissa shift note: Patient up out of bed, pleasant and cooperative. Tolerating clear liquid diet, no c/o pain or nausea. No abdominal distention noted. States occasional cramping. + flatus, small loose/soft stool. Abdomen soft, non tender, active BS. Kobe at bedside providing supportive care. Calls appropriately for staff assistance.
[2019-08-17] MEDS: SODIUM CHLORIDE 0.9% 1,000 ML 80 ML IV (00:46)
[2019-08-17 05:19] VITALS: BP 138/68; PULSE 64; RESP 16; TEMP 36.1; O2SAT 97
[2019-08-17 06:27] LABS: BUN Creatinine Ratio 21.7 (6-22); Blood Urea Nitrogen 13 mg/dL (7-17); Calcium 7.7 mg/dL (8.4-10.2); Carbon Dioxide 26 mmol/L (22-32); Chloride 109 mmol/L (98-107); Estimated Glomerular Filt Rate > 60.0 mL/min (>60); Glucose 87 mg/dL (80-110); HEMOLYSIS < 15 (0-50); Magnesium 2.1 mg/dL (1.6-2.3); Potassium 3.5 mmol/L (3.4-5.1); Sodium 138 mmol/L (137-145)
[2019-08-17 07:10] VITALS: BP 131/62; PULSE 62; RESP 18; TEMP 37.3; O2SAT 96
[2019-08-17 08:45] VITALS: BP 113/54; PULSE 68; RESP 17; O2SAT 100
--- NOTE | 2019-08-17 09:23 | P.DS_ITS ---
History of Present Illness History of Present Illness Date Patient Seen: 08/17/19 Time Patient Seen: 09:23 Chief complaint: vomiting, thinks intestinal blockage, cramping Narrative: Manda Garcia is an 79-year-old female with past medical history of recurrent breast cancer with bony metastasis, osteoporosis, hyperlipidemia, and hypothyroidism, appendiceal carninoma s/p hemicolectomy who presented with bilateral lower quadrant abdominal pain, nausea, and vomiting starting early this morning. Patient states that she began developing bilateral lower quadrant pain starting early this morning, waking her up. The abdominal pain was bilateral lower quadrants, initially crampy, then somewhat sharp and radiating around to her back. She then had an episode of nausea and had an episode of non bloody nonbilious emesis. She has had previous bowel obstruction, and reports the symptoms as similar to her previous episodes. She last required hospitalization 3 years ago for bowel obstruction, but over the past few years she has had intermittent abdominal pain consistent with this episode about 1-2 times per year that resolved on its own. Her last bowel movement movement was actually this morning, but recently her stools have been hard. She has not passed any gas since this morning. She denies any melena or hematochezia. She further denies any coffee-ground emesis or hematemesis. She denies any recent fevers, chills, shortness of breath, cough, chest pain, lower extremity edema or swelling. She does have a chronic lower extremity neuropathy which has been recently unchanged. In the emergency room her vital signs were unremarkable. Labs notable for a WBC of 2.9, platelet 144, sodium 135, lipase 61 and otherwise normal labs. She had an abdominal CT scan which showed a distal small-bowel obstruction with a transition point as well as progressive metastatic lesions in her spine. An NG- tube was inserted, but only 75 cc fluid was removed after insertion. Upon arrival to the floor, she is comfortable-appearing and NG tube continues to have minimal clear output. She is currently pending surgical evaluation. Discharge Providers Provider Date of admission: 08/15/19 06:49 Discharge Date: 08/17/19 Primary care physician: Jessica Bush DO Consults: 08/15/19 09:19 Consult to General Surgery Routine Comment: Consulting Provider: Darell Vincent Reason for consultation: SBO 08/15/19 13:05 Consult to Pastoral Services Routine Comment: pt request Discharge provider: Mesfin Renee DO Summary Hospital Course Discharge Diagnosis: Please see hospital course by problem list below. Hospital Course: Manda Garcia is an 79-year-old female with past medical history of recurrent breast cancer with bony metastasis, osteoporosis, hyperlipidemia, and hypothyroidism who presented with bilateral lower quadrant abdominal pain, nausea, and vomiting. She was admitted for a small-bowel obstruction, likely secondary to adhesions given her surgical history. She improved with conservative management, and was tolerating a low residue diet upon discharge. 1. Distal Small-bowel obstruction, acute, present on admission - -patient underwent small-bowel follow-through on 08/15/2019, which showed resolving SBO. There was contrast that progressed into her colon. -appreciate surgical assistance with management, Dr. Vincent. -patient was initially treated with an NG tube which had some bilious output, however this resolved. After small-bowel follow-through the NG tube was removed the next morning patient was advanced to clears. She tolerated full liquid diet in the morning of discharge, and then a low residue diet for lunch. She was discharged having bowel movements and passing gas. She was also recommended to start on a daily regimen of MiraLax and senna. 2. Recurrent breast cancer with bony metastases, active -CT abdomen did showed new/progressive lesions in her spine. She has no evidence on exam of new neurological deficits. She will need an outpatient MRI and continued follow-up with her oncologist. -no changes were made to her oncologic regimen. 3. Hypothyroidism, chronic -continue home levothyroxine 4. Hyperlipidemia, chronic -continue home statin 5. Leukopenia, chronic, stable -patient appears to have a chronic low WBC count which has been stable. This is likely due to her ongoing breast cancer treatment. Exam Vital Signs (past 8 hours): - 08/17/19 05:19 Temperature 96.9 F L Pulse Rate 64 Respiratory Rate 16 Blood Pressure 138/68 Pulse Oximetry 97 Oxygen Delivery Method Room Air Oxygen Flow Rate 0 Narrative Exam Narrative: GENERAL APPEARANCE: Well developed, well nourished, in no acute distress. SKIN: Inspection of the skin reveals no rashes, ulcerations or petechiae. HEENT: The sclerae were anicteric and conjunctivae were pink and moist. Extraocular movements were intact and pupils were equal, round with normal accommodation. External inspection of the ears and nose showed no scars, lesions, or masses. Lips, teeth, and gums showed normal mucosa. The oral mucosa, hard and soft palate, tongue and posterior pharynx were unremarkable. NECK: Supple and symmetric. There was no thyroid enlargement, and no tenderness, or masses were felt. CHEST: Normal AP diameter and normal contour without any kyphoscoliosis. LUNGS: Auscultation of the lungs revealed no wheezes, rhonchi, or rales. CARDIOVASCULAR: There was a regular rate and rhythm without any murmurs, gallop s, rubs. Peripheral pulses were 2+ and symmetric. ABDOMEN: Soft and nontender with normal bowel sounds. No ascites was noted. MUSCULOSKELETAL: There was no tenderness or effusions noted. Muscle strength and tone were normal. EXTREMITIES: No cyanosis, clubbing or edema. NEUROLOGIC: Alert and oriented x 3. Normal affect. Gait was normal. Strength is +5/5 in the Upper Extremities and Lower Extremities Bilaterally. Sensation to touch was normal. Objective Labs Result Diagrams: 08/16/19 05:10 08/17/19 05:30 Labs: Laboratory Results - last 24 hr 08/17/19 05:30 Sodium 138 Potassium 3.5 Chloride 109 H Carbon Dioxide 26 BUN 13 Creatinine 0.60 Estimated GFR > 60.0 BUN/Creatinine Ratio 21.7 Glucose 87 Calcium 7.7 L Magnesium 2.1 Discharge Plan Discharge Plan Patient Disposition: Home Discharge comment: You were admitted to the hospital with a small-bowel obstruction which improved without any surgical interventions. You also had a large amount of stool in your colon on imaging, and once your bowel movements slow after your small-bowel follow-through study you should start taking MiraLax and senna. Try to have a bowel movement at least daily. For the next few weeks please stick with a low residue diet after your small bowel obstruction. Discharge orders & Medications Prescriptions: New polyethylene glycol 3350 [Miralax] 17 gram/dose powder 17 gram PO DAILY 30 Days Qty: 510 RF: 0 senna 8.6 mg capsule 8.6 mg PO BEDTIME 30 Days Qty: 30 RF: 0 Continued hydrochlorothiazide 12.5 mg tablet 12.5 mg PO DAILY Qty: 90 RF: 1 levothyroxine 75 mcg tablet 75 mcg PO DAILY Qty: 90 RF: 3 atorvastatin 10 mg tablet 5 mg PO DAILY Qty: 45 RF: 3 triamcinolone acetonide 0.1 % cream 1 applictn TOP BID Qty: 454 RF: 2 ascorbic acid (vitamin C) 1,000 mg PO DAILY RF: 0 cholecalciferol (vitamin D3) 3,000 unit tablet 3,000 unit PO DAILY RF: 0 krill oil 500 mg PO DAILY RF: 0 melatonin 3 mg tablet 3 mg PO BEDTIME PRN (Reason: sleep) Qty: 90 RF: 0 fulvestrant [Faslodex] 250 mg/5 mL Syringe 500 mg IM QMONTH RF: 0 palbociclib 100 mg Capsule 100 mg PO DAILY Qty: 21 RF: 2 (DME) Breast Prosthesis And Bra Qty: 2 RF: 1 carica papaya [Papaya Enzyme] Tablet 3 tab PO DAILY RF: 0 cyanocobalamin (vitamin B-12) [Vitamin B-12] 1,000 mcg Tablet 1,000 mcg DAILY RF: 0 calcium citrate-vitamin D3 [Citracal Regular] 250 mg calcium- 200 unit Tablet 1 tab PO DAILY RF: 0 coenzyme Q10 [Co Q-10] 100 mg capsule 300 mg PO DAILY RF: 0 Discontinued psyllium husk 1 cap PO PRN PRN (Reason: Constipation) RF: 0 Follow up/Referrals: Jessica Bush DO [Primary Care Provider] - (Follow up with Dr Bush ThursdayAugust 21 @2:45 PM ) Discharge Health Status Health Concerns: Small-bowel obstruction Diet/Activity/Treatments Diet: Diet as Tolerated Diet comment: Low residue, low-fiber Activity: As tolerate Visit Report/Discharge Packet Instructions: DI for Small Bowel Obstruction, How to Prevent Falls Visit Report Forms: Patient Portal/API, Stroke Signs & Symptoms Discharge Data Primary Care Provider: Jessica Bush Discharges patient from system. Discharge Date/Time: 08/17/19 13:12
[2019-08-17] MEDS: PANTOPRAZOLE 40 MG VIAL IV (10:19)
[2019-08-17 11:05] VITALS: BP 143/84; PULSE 86; RESP 18; TEMP 37.2; O2SAT 96
--- NOTE | 2019-08-17 12:35 | PC.NURSE ---
pt was moving arm consistently during bp check resulting in abnormal reading. Decided to come back and recheck later when patient was more calm. LOCATE TECHNICIAN reading normal during routine vitals check.
--- NOTE | 2019-08-17 13:19 | PC.NURSE ---
Removed IV, catheter intact. 08/17/19 1314
== END 2019-08-17 13:12 | disposition home or self-care (01) | DRG 389 ==
LOC: ED 03:55 → AC 06:51
PROVIDERS: Internal Medicine; Admitting Provider Nurse Practitioner Gerontology; Emergency Provider Emergency Medicine; PCP Family Medicine; Referring Provider Emergency Medicine; Visit Provider Nurse Practitioner Gerontology
DX: K56.50 Intestinal adhesions [bands], unspecified as to partial versus complete obstruction (principal); C79.51 Secondary malignant neoplasm of bone; D70.1 Agranulocytosis secondary to cancer chemotherapy; Z85.3 Personal history of malignant neoplasm of breast; E78.5 Hyperlipidemia, unspecified; E03.9 Hypothyroidism, unspecified; Z85.89 Personal history of malignant neoplasm of other organs and systems
CPT/HCPCS: 36415; 74022; 74177; 74248; 80048; 80053; 83605; 83690; 83735; 84443; 85025; 94762; 96361; 96374; 96375; 99232; 99284; 99285; C9113; J1170; J1650; J2060; J2405; Q9967

== ENCOUNTER → 2019-08-22 15:43 | Outpatient (CLI) | payer MEDICARE, OTHER, SELFPAY ==
[2019-08-15 12:56] VITALS: BMI 22.2
== END ==
PROVIDERS: PCP Family Medicine; Visit Provider Family Medicine
DX: R30.0 Dysuria (principal)
CPT/HCPCS: 87077; 87086; 87186

== ENCOUNTER → 2019-09-07 10:41 | Outpatient (CLI) | payer MEDICARE, OTHER, SELFPAY ==
[2019-08-15 12:56] VITALS: BMI 22.2
--- NOTE | 2019-09-07 | DI.MRI.S_ITS ---
PROCEDURE: MR LUMBAR SPINE WO/W CON INDICATIONS: Secondary malignant neoplasm of bone TECHNIQUE: Noncontrast sagittal T1 spin echo and T2 fast spin echo, sagittal STIR, axial T1 and T2 fast spin echo through the lumbar spine. In cases with scoliosis, additional coronal T2 fast spin echo may be performed. After the administration of contrast, sagittal and axial T1 spin echo with fat saturation through the lumbar spine. COMPARISON: [facility], CT, CT ABDOMEN PELVIS W CON, 08/15/2019, 5:28. FINDINGS: Image quality: Diagnostic, with note made of motion artifact. Alignment and curvature: There is mild grade 1 anterolisthesis seen at the L3-L4 and L4-L5 levels. Associated pars defects are not seen. Marrow: Similar to the prior CT examination, there is abnormal bone marrow signal seen at several levels, although most prominently within the posterior aspect of L2 and the right L2 pedicle. There is decreased T1 weighted signal with increased STIR signal and abnormal enhancement. Milder suspicious foci can be seen. At the inferior endplate of L4, there is a Schmorl's node seen. Fatty metaplasia can be seen within the sacrum. Spinal cord: Conus medullaris terminates at the L1 level. Visualized spinal cord demonstrates normal signal, without suspicious enhancement. Paraspinous soft tissues: No paravertebral masses or abnormal enhancement. A 3.5 cm left renal cyst can be seen. T12-L1: Normal appearance. L1-L2: No significant abnormality is seen. L2-L3: The disc height is well-preserved. Loss of disc signal is seen at this level. Mild to moderate disc bulge is seen. There is moderate right-sided and mild left-sided neural foraminal narrowing seen. No significant neural foraminal or central canal narrowing can be seen. L3-L4: Mild loss of disc height is seen. Loss of disc signal is seen. Moderate generalized disc bulge is seen. At least moderate facet hypertrophy is seen. Mild bilateral neural foraminal narrowing is seen. At least moderate central canal narrowing is seen. L4-L5: Mild loss of disc height is seen. Loss of disc signal is seen. Moderate disc bulge is seen, which is eccentric to the right. At least moderate facet hypertrophy is seen. Minimal to mild bilateral neural foraminal narrowing is seen. Mild central canal narrowing is seen. L5-S1: Mild loss of disc height is seen. Loss of disc signal is seen. Moderate disc bulge is seen, which is eccentric to the right. Mild to moderate facet hypertrophy is seen. There is mild right-sided and no left-sided neural foraminal narrowing seen. Minimal central canal narrowing is seen. IMPRESSION: Findings highly suspicious for metastatic disease, as seen on the prior CT, which are most prominent within the L2 level. Grade 1 L3-L4 and L4-L5 anterolisthesis. Multiple levels of lumbar spine degenerative change are seen. Dictated by: Damien Tadeo M.D. on 09/07/2019 at 11:59 Approved by: Damien Tadeo M.D. on 09/07/2019 at 12:05
[2019-09-07 11:03] LABS: RBC Urine None Seen (0-5/HPF); WBC Urine None Seen (0-5/HPF)
[2019-09-07 11:17] LABS: Add Manual Diff / Slide Review NO; Basophils Absolute Auto 0 /uL (0-100); Eosinophils Absolute Auto 100 /uL (0-450); Eosinophils Percent Auto 5.5 % (2-4); Hematocrit 36.4 % (36-46); Hemoglobin 12.6 g/dL (12.0-16.0); Lymphocytes Absolute Auto 800 /uL (1100-4500); Lymphocytes Percent Auto 31.5 % (25-40); Mean Corpuscular HGB Conc 34.7 % (30-36); Mean Corpuscular Hemoglobin 35.6 PG (26-34); Mean Corpuscular Volume 102.6 fL (80-100); Monocytes Absolute Auto 200 /uL (0-900); Monocytes Percent Auto 8.6 % (3-14); Neutrophils Absolute Auto 1300 /uL (1500-7000); Neutrophils Percent Auto 53.4 % (50-75); Platelet Count 176 X10^3/uL (150-400); Red Blood Cell Count 3.55 X10^6/uL (4.0-5.2); Red Cell Distribution Width 13.8 % (11.6-14.8); White Blood Cell Count 2.4 X10^3/uL (4.5-11.0)
[2019-09-07 11:28] LABS: Alanine Aminotransferase 15 IU/L (<35); Albumin 3.8 g/dL (3.5-5.0); Albumin Globulin Ratio 1.4 (1.0-2.8); Alkaline Phosphatase 53 U/L (38-126); Aspartate Aminotransferase 25 IU/L (14-36); BUN Creatinine Ratio 28.8 (6-22); Bilirubin Total 0.5 mg/dL (0.2-1.3); Blood Urea Nitrogen 23 mg/dL (7-17); Calcium 9.3 mg/dL (8.4-10.2); Carbon Dioxide 24 mmol/L (22-32); Chloride 109 mmol/L (98-107); Estimated Glomerular Filt Rate > 60.0 mL/min (>60); Globulin 2.7 g/dL (1.7-4.1); Glucose 86 mg/dL (80-110); HEMOLYSIS < 15 (0-50); Potassium 4.3 mmol/L (3.4-5.1); Sodium 139 mmol/L (137-145); Total Protein 6.5 g/dL (6.3-8.2)
[2019-09-07 11:39] LABS: Appearance Urine UA Clear; Bilirubin Urine UA Negative (NEGATIVE); Color Urine UA YELLOW; Glucose Urine UA NEGATIVE (Negative); Ketones Urine UA NEGATIVE (NEGATIVE); Nitrite Urine UA NEGATIVE (Negative); Occult Blood Urine UA Negative (Negative); Protein Urine UA Negative (Negative); Specific Gravity Urine UA 1.025 (1.000-1.035)
[2019-09-07 11:40] LABS: Leukocyte Esterase Urine UA NEGATIVE (NEGATIVE); Urobilinogen Urine UA 0.2 E.U./dL (0.2)
[2019-09-07 11:42] LABS: Bacteria Urine Occasional (0-1)
[2019-09-07 11:43] LABS: Mucus Urine 1+ (Negative)
[2019-09-07 11:44] LABS: Culture Indicated Urine Cult Not Indicated
[2019-09-07 23:42] LABS: Cancer Antigen 27.29 63.4 U/mL (0.0-38.6)
== END ==
PROVIDERS: PCP Family Medicine; Referring Provider Internal Medicine Hematology & Oncology; Visit Provider Internal Medicine Hematology & Oncology
DX: C50.912 Malignant neoplasm of unspecified site of left female breast (principal); C79.51 Secondary malignant neoplasm of bone; N39.0 Urinary tract infection, site not specified; M43.16 Spondylolisthesis, lumbar region; M47.816 Spondylosis without myelopathy or radiculopathy, lumbar region; M47.817 Spondylosis without myelopathy or radiculopathy, lumbosacral region; Z17.0 Estrogen receptor positive status [ER+]
CPT/HCPCS: 36415; 72158; 80053; 81001; 85025; 86300; A9579

== ENCOUNTER → 2019-10-03 08:08 | Outpatient (CLI) | payer MEDICARE, OTHER, SELFPAY ==
[2019-10-03 08:34] LABS: Add Manual Diff / Slide Review NO; Basophils Absolute Auto 0 /uL (0-100); Basophils Percent Auto 0.7 % (0-2); Eosinophils Absolute Auto 100 /uL (0-450); Eosinophils Percent Auto 4.1 % (2-4); Hematocrit 37.2 % (36-46); Hemoglobin 12.7 g/dL (12.0-16.0); Lymphocytes Absolute Auto 700 /uL (1100-4500); Lymphocytes Percent Auto 34.7 % (25-40); Mean Corpuscular Hemoglobin 35.3 PG (26-34); Monocytes Absolute Auto 200 /uL (0-900); Monocytes Percent Auto 10.2 % (3-14); Neutrophils Absolute Auto 1000 /uL (1500-7000); Neutrophils Percent Auto 50.3 % (50-75); Platelet Count 194 X10^3/uL (150-400); Red Blood Cell Count 3.58 X10^6/uL (4.0-5.2); White Blood Cell Count 2.1 X10^3/uL (4.5-11.0)
[2019-10-03 08:59] LABS: Alanine Aminotransferase 13 IU/L (<35); Albumin 3.9 g/dL (3.5-5.0); Albumin Globulin Ratio 1.3 (1.0-2.8); Alkaline Phosphatase 48 U/L (38-126); Aspartate Aminotransferase 29 IU/L (14-36); BUN Creatinine Ratio 30.7 (6-22); Bilirubin Total 0.6 mg/dL (0.2-1.3); Blood Urea Nitrogen 23 mg/dL (7-17); Calcium 9.6 mg/dL (8.4-10.2); Carbon Dioxide 27 mmol/L (22-32); Chloride 106 mmol/L (98-107); Estimated Glomerular Filt Rate > 60.0 mL/min (>60); Globulin 2.9 g/dL (1.7-4.1); Glucose 84 mg/dL (80-110); HEMOLYSIS < 15 (0-50); Potassium 4.5 mmol/L (3.4-5.1); Sodium 138 mmol/L (137-145); Total Protein 6.8 g/dL (6.3-8.2)
[2019-10-04 01:56] LABS: Cancer Antigen 27.29 84.5 U/mL (0.0-38.6)
== END ==
PROVIDERS: PCP Family Medicine; Referring Provider Internal Medicine Hematology & Oncology; Visit Provider Internal Medicine Hematology & Oncology
DX: C50.919 Malignant neoplasm of unspecified site of unspecified female breast (principal)
CPT/HCPCS: 36415; 80053; 85025; 86300

== ENCOUNTER → 2019-11-03 14:59 | Outpatient (CLI) | payer MEDICARE, OTHER, SELFPAY ==
[2019-11-03 15:27] LABS: Add Manual Diff / Slide Review NO; Basophils Absolute Auto 0 /uL (0-100); Eosinophils Absolute Auto 100 /uL (0-450); Eosinophils Percent Auto 3.6 % (2-4); Hematocrit 34.7 % (36-46); Hemoglobin 12.2 g/dL (12.0-16.0); Lymphocytes Absolute Auto 700 /uL (1100-4500); Lymphocytes Percent Auto 31.3 % (25-40); Mean Corpuscular HGB Conc 35.1 % (30-36); Mean Corpuscular Hemoglobin 36.5 PG (26-34); Mean Corpuscular Volume 104.1 fL (80-100); Monocytes Absolute Auto 200 /uL (0-900); Monocytes Percent Auto 9.8 % (3-14); Neutrophils Absolute Auto 1200 /uL (1500-7000); Neutrophils Percent Auto 54.3 % (50-75); Platelet Count 163 X10^3/uL (150-400); Red Blood Cell Count 3.33 X10^6/uL (4.0-5.2); Red Cell Distribution Width 14.1 % (11.6-14.8); White Blood Cell Count 2.1 X10^3/uL (4.5-11.0)
[2019-11-03 15:41] LABS: Alanine Aminotransferase 12 IU/L (<35); Albumin 3.8 g/dL (3.5-5.0); Albumin Globulin Ratio 1.5 (1.0-2.8); Alkaline Phosphatase 48 U/L (38-126); Aspartate Aminotransferase 25 IU/L (14-36); BUN Creatinine Ratio 24.2 (6-22); Bilirubin Total 0.3 mg/dL (0.2-1.3); Blood Urea Nitrogen 23 mg/dL (7-17); Calcium 9.3 mg/dL (8.4-10.2); Carbon Dioxide 31 mmol/L (22-32); Chloride 106 mmol/L (98-107); Estimated Glomerular Filt Rate 56.5 mL/min (>60); Globulin 2.5 g/dL (1.7-4.1); Glucose 95 mg/dL (80-110); HEMOLYSIS < 15 (0-50); Potassium 4.4 mmol/L (3.4-5.1); Sodium 138 mmol/L (137-145); Total Protein 6.3 g/dL (6.3-8.2)
[2019-11-04 02:07] LABS: Cancer Antigen 27.29 71.1 U/mL (0.0-38.6)
== END ==
PROVIDERS: PCP Family Medicine; Referring Provider Internal Medicine Hematology & Oncology; Visit Provider Internal Medicine Hematology & Oncology
DX: C50.919 Malignant neoplasm of unspecified site of unspecified female breast (principal)
CPT/HCPCS: 36415; 80053; 85025; 86300

== ENCOUNTER 2020-01-10 13:00 | Outpatient (RCR) | payer MEDICARE, OTHER, SELFPAY ==
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
--- NOTE | 2020-01-04 16:39 | PT.OPPOC ---
Physical, Occupational & Speech Therapy At [facility] Current Diagnoses Dizziness and giddiness (01/04/20) Visit Care Team Role Provider Type Jessica Bush DO Attending Provider Physician Primary Care Provider Referring Provider Specialty: Family Practice Address: [address] [place] [address], [facility] [place], [address] Email: [email or web address] Plan Of Care PT-OP-T Assessment and Plan Start: 01/04/20 07:26 Freq: Status: Active Protocol: Document 01/04/20 14:32 MB (Rec: 01/04/20 16:39 MB [id number]) Physical Therapy Assessment Rehab Potential Rehabilitation Potential Fair Evaluation Complexity Number of Personal Factors/Comorbidities 3 or More Number of Body Systems Impaired 3 Clinical Presentation at Evaluation Evolving Impairments Impairments Activity Tolerance,Balance, Functional Activities, Functional Mobility,Gait,Pain, Posture,ROM,Soft Tissue Mobility,Transfers,Vestibular, Visual Motor Other Impairments Advanced age, metastatic CA to breast, colon, spine and left shoulder per pt, caring for with CA, pt concerned about end of life issues, somewhat emotional and planning to visit [place] [employer] where she hopes to have her ashes spread. Goals 3 Seismograph Computer Goal (LTG) Pt will perform progressive HEP with I including postural, alignment, vestibular and balance exercises to improve balance by 03/06/2020. LTG Duration 8 weeks 2 Long-Term Goal (LTG) Pt will perform WNLs on a standardized balance test to decrease fall risk by 2019. LTG Duration 8 weeks 1 [employer] Goal (LTG) Pt will present with an improved DHI score to reflect no more than low perception of handicap to improve balance and quality of life by 2019. LTG Duration 8 weeks Assessment Summary Assessment Pt is an 79 y/o female presenting with sudden onset of vertiginous symptoms yesterday when she rolled left to look at her and then over to the right to get OOB. She was nauseated and vomited. Pt presents with many postural abnormalities and imbalance. Oculomotor screen, saccades and rapid supination and pronation B are negative for central findings. MMT is deferred d/t pt reporting metastatic cancer to the bone. Pt presents with right horizontal cupulolithiasis and treated with Casani today. Her goal is to go to [place] soon to visit [place] [employer]. She does have some increased sadness in processing hers and her 's health and preparations for the future. She presents with severely limited cervical mobility and PT ed pt on postural changes to make when sleeping at night . Barriers to PT include: metastatic CA with ? bone integrity, postural changes, history of vertigo, imbalance, need to leave OOT during PT course. Physical Therapy Plan Frequency and Duration Frequency of Treatment 2x/Week Duration of Treatment 8 weeks Plan of Care Start Date 01/04/20 Plan of Care End Date 03/06/20 Therapeutic Interventions Therapeutic Interventions Balance Training,Canalithic Repositioning,Coordination Training,Gait Training,Home Exercise Program,Manual Therapy,Neuromuscular Re- education,Patient/Caregiver Education,Self-Care/Home Management,Soft Tissue Mobilization,Therapeutic Activities,Therapeutic Exercises,Vestibular Rehabilitation Modalities Cold Pack/Ice Massage,Electric Stimulation,Hot Packs, Ultrasound Next Visit Focus/Plan Next Note Type Treatment Note Next Visit Plan Reassess BPPV, consider checking for orthostatics Plan of Care Dates Plan of Care Start Date 01/04/20 Plan of Care End Date 03/06/20 Electronically Signed by: Richelle Ruiz, PT 01/04/20 0919 Please Sign and Return: I have reviewed this Plan of Care and certify that the skilled therapy services above are required to meet the patient?s needs. Physician Signature Date Printed Name and Credentials Clinical Instructor Signature Printed Name and Credentials
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
== END 2020-02-01 13:16 ==
LOC: PHYS 13:00
PROVIDERS: PCP Family Medicine; Referring Provider Family Medicine; Visit Provider Family Medicine
DX: R42 Dizziness and giddiness (principal)
CPT/HCPCS: 95992; 97163; 97535

== ENCOUNTER → 2020-02-28 07:22 | Outpatient (CLI) | payer MEDICARE, OTHER, SELFPAY ==
[2020-02-28 08:14] LABS: Add Manual Diff / Slide Review NO; Basophils Absolute Auto 0 /uL (0-100); Basophils Percent Auto 1.2 % (0-2); Eosinophils Absolute Auto 100 /uL (0-450); Eosinophils Percent Auto 4.4 % (2-4); Hematocrit 37.7 % (36-46); Hemoglobin 12.6 g/dL (12.0-16.0); Lymphocytes Absolute Auto 700 /uL (1100-4500); Lymphocytes Percent Auto 34.6 % (25-40); Mean Corpuscular HGB Conc 33.4 % (30-36); Mean Corpuscular Hemoglobin 34.8 PG (26-34); Monocytes Absolute Auto 300 /uL (0-900); Monocytes Percent Auto 15.1 % (3-14); Neutrophils Absolute Auto 900 /uL (1500-7000); Neutrophils Percent Auto 44.7 % (50-75); Platelet Count 128 X10^3/uL (150-400); Red Blood Cell Count 3.62 X10^6/uL (4.0-5.2); Red Cell Distribution Width 13.9 % (11.6-14.8); White Blood Cell Count 2.1 X10^3/uL (4.5-11.0)
[2020-02-28 08:25] LABS: Alanine Aminotransferase 15 IU/L (<35); Albumin 3.9 g/dL (3.5-5.0); Albumin Globulin Ratio 1.5 (1.0-2.8); Alkaline Phosphatase 53 U/L (38-126); Aspartate Aminotransferase 29 IU/L (14-36); Bilirubin Total 0.6 mg/dL (0.2-1.3); Blood Urea Nitrogen 20 mg/dL (7-17); Calcium 9.3 mg/dL (8.4-10.2); Carbon Dioxide 28 mmol/L (22-32); Chloride 103 mmol/L (98-107); Estimated Glomerular Filt Rate > 60.0 mL/min (>60); Globulin 2.6 g/dL (1.7-4.1); Glucose 80 mg/dL (80-110); HEMOLYSIS < 15 (0-50); Potassium 4.3 mmol/L (3.4-5.1); Sodium 138 mmol/L (137-145); Total Protein 6.5 g/dL (6.3-8.2)
[2020-02-29 07:56] LABS: Cancer Antigen 27.29 99.6 U/mL (0.0-38.6)
== END ==
PROVIDERS: PCP Family Medicine; Referring Provider Internal Medicine Hematology & Oncology; Visit Provider Internal Medicine Hematology & Oncology
DX: C50.919 Malignant neoplasm of unspecified site of unspecified female breast (principal)
CPT/HCPCS: 36415; 80053; 85025; 86300

== ENCOUNTER → 2020-07-26 08:58 | Outpatient (CLI) | payer MEDICARE, OTHER, SELFPAY ==
--- NOTE | 2020-07-26 08:59 | DI.NM.S_ITS ---
PROCEDURE: [place] BONE SCAN WHOLE BODY RADIOPHARMACEUTICAL: 20.5 mCi Tc-99m MDP IV. INDICATIONS: metastatic breast cancer TECHNIQUE: Delayed whole-body scintigrams were obtained approximately 3-4 hours after intravenous injection of radiotracer. Anterior and posterior views were acquired from vertex to feet. Additional left and right oblique views of the pelvis were obtained. COMPARISON: [facility], MR, MR LUMBAR SPINE WO/W CON, 09/07/2019, 11:13. [facility], CT, CT ABDOMEN PELVIS W CON, 08/15/2019, 5:28. [facility], CT, CT CHEST ABD PEL W CON, 07/26/2020, 10:16. [facility], [place], [place] BONE SCAN WHOLE BODY, 06/14/2019, 13:37. FINDINGS: Physiologic uptake is noted within the kidneys and bladder. Increased uptake is noted within the shoulders, feet, knees and wrist most suggestive of degenerative change. Multilevel areas of increased uptake are noted within the spine predominantly suggestive of degenerative disease. However, there is a more prominent area of uptake identified at what appears to be the level of L2, new compared to prior exam. It is noted that there is a mottled appearance of sclerosis on CT within this region, progressive compared to prior exam. Uptake in the left seventh and 10th ribs, left scapula and medial left clavicular head. Uptake at T7 is slightly less prominent than prior. Increased uptake in the spine, shoulders, wrists, hands, hips, knees and feet, unchanged. IMPRESSION: 1. New increased uptake at L2 with progressive sclerosis on CT most consistent with metastatic disease. 2. Additional areas of uptake consistent with metastatic disease, as identified on prior exam are stable, noting decreased uptake at T7. Dictated by: Perla Rosado M.D. on 07/26/2020 at 15:57 Approved by: Perla Rosado M.D. on 07/26/2020 at 16:29
--- NOTE | 2020-07-26 10:17 | DI.CT.S_ITS ---
PROCEDURE: CT CHEST ABD PEL W CON INDICATIONS: metastatic breast cancer TECHNIQUE: After the administration of oral and intravenous contrast, 5 mm thick sections acquired from the lung apices to the symphysis. 5 mm coronal and sagittal reformats were performed, with additional 7 mm coronal MIP reformats through the lungs. For radiation dose reduction, the following was used: automated exposure control, adjustment of mA and/or kV according to patient size. COMPARISON: [facility], CT, CT ABDOMEN PELVIS W CON, 08/15/2019, 5:28. [facility], NM, NM BONE SCAN WHOLE BODY, 07/26/2020, 13:05. [facility], MR, MR LUMBAR SPINE WO/W CON, 09/07/2019, 11:13. [facility], CT, CT CHEST ABD PEL W CON, 05/02/2019, 11:17. [facility], CT, CT CHEST ABD PEL W CON, 12/09/2018, 10:22. FINDINGS: Image quality: Excellent. CHEST: Lungs and pleura: Stable peripheral 3 mm right upper lobe subsolid nodule (image 82, series 3). Stable 1.1 cm x 0.4 cm pleural based nodule in the right lower lobe (image 134, series 3). New 5 mm fissural based nodule abutting the left major fissure (image 157, series 3) with somewhat triangular shape. This may represent an intrafissural lymph node. New 5 mm peripheral left lower lobe nodule seen on image 227, series 3. No septal thickening or nodularity. Bibasilar atelectasis versus scarring unchanged. Subpleural reticular opacities are again noted in the periphery of the lateral left upper lobe. No acute airspace opacities. No pleural effusions or pneumothorax. Central and peripheral airways appear patent and normal in caliber. Mediastinum: Heart size is normal. No pericardial effusion. No perihilar adenopathy. Interval development of precarinal lymphadenopathy measuring approximately 1.7 cm x 2.2 cm in transverse dimension (image 24, series 2). Thoracic aorta and central pulmonary arteries are normal in size. Esophagus is normal in caliber. No hiatal hernia. Chest wall: No axillary or supraclavicular adenopathy by size criteria. Thyroid gland is unremarkable. No internal mammary chain adenopathy visualized. Status post bilateral mastectomy. ABDOMEN: Solid organs: Liver is normal in size and enhancement. A few tiny scattered hepatic hypodensities are again too small to characterize but likely represent cysts versus hemangiomas. Gallbladder is surgically absent. Biliary system is non dilated. Pancreas enhances normally. Spleen is normal in size and enhancement. No adrenal nodules. Kidneys demonstrate normal size and enhancement, without hydronephrosis. Stable bilateral renal cysts. Peritoneum and bowel: Bowel loops demonstrate normal wall thickness and caliber. No free fluid or air. Scattered colonic diverticula without acute inflammatory changes. Nodes and vessels: No retroperitoneal or mesenteric adenopathy by size criteria. Aorta and inferior vena cava are normal in size. Scattered atherosclerotic calcifications of the abdominal aorta and iliac vessels without aneurysmal dilatation. Miscellaneous: Fat containing ventral hernia below the level of the umbilicus with ventral wall defect measuring approximately 2.3 cm in diameter. No evidence for acute inflammatory changes. PELVIS: Genitourinary: Bladder wall thickness appears normal for degree of distention. There appears to be a pessary device in place. Miscellaneous: No inguinal hernias. No pelvic adenopathy. Bones: Stable sclerosis involving the right symphysis pubic. Stable ill-defined sclerosis involving the L2 vertebral body as well as the right L2 pedicle. Stable sclerotic focus over the posterior margin of the right L1 vertebral body just anterior to the right L1 pedicle. Stable appearance of fracture deformity involving the posterior aspect of the left 7th rib. Redemonstration of several faint sclerotic foci involving multiple ribs bilaterally. These have not changed significantly in number or size. Stable appearance of sclerotic focus involving the inferior tip of the left scapular wing. No new suspicious osseous lesions. No acute vertebral body compression fractures. Stable chronic compression deformity of the anterior T1 vertebral body. Multilevel thoracic spondylosis. Multilevel lumbar spondylosis. Stable grade 1 anterolisthesis of L3 on L4. IMPRESSION: 1. History of breast malignancy status post bilateral mastectomy. 2. New precarinal mediastinal lymphadenopathy as well as new 5 mm left lower lobe pulmonary nodule and new 5 mm fissural based nodule abutting the left major fissure which are suspicious for disease progression. 3. Stable appearance and distribution of osseous metastatic lesions as described above. No acute osseous abnormalities or acute compression fractures of the spine. 4. No evidence for metastatic disease involving the abdomen or pelvis. 5. Colonic diverticulosis without acute diverticulitis. 6. Other chronic findings as above. Dictated by: Miguel Mccormick M.D. on 07/26/2020 at 14:22 Approved by: Miguel Mccormick M.D. on 07/26/2020 at 16:11
== END ==
PROVIDERS: PCP Family Medicine; Referring Provider Internal Medicine Hematology & Oncology; Visit Provider Internal Medicine Hematology & Oncology
DX: C50.912 Malignant neoplasm of unspecified site of left female breast (principal); C79.51 Secondary malignant neoplasm of bone; K43.9 Ventral hernia without obstruction or gangrene; R91.8 Other nonspecific abnormal finding of lung field; R59.0 Localized enlarged lymph nodes; K57.90 Diverticulosis of intestine, part unspecified, without perforation or abscess without bleeding; Z17.0 Estrogen receptor positive status [ER+]; Z90.13 Acquired absence of bilateral breasts and nipples
CPT/HCPCS: 71260; 74177; 78306; A9503; Q9967

== ENCOUNTER 2020-07-29 21:54 | Inpatient (IN) | payer MEDICARE, OTHER, SELFPAY ==
[2020-07-29] VITALS (7 sets, daily range): BP systolic 166–195; BP diastolic 79–90; PULSE 71–89; RESP 10–18; TEMP 37.1; O2SAT 90–99; BMI 23.1
--- NOTE | 2020-07-29 22:02 | DI.CT.S_ITS ---
PROCEDURE: CT ABDOMEN PELVIS W CON INDICATIONS: acute abdominal pain TECHNIQUE: After the administration of intravenous contrast, 5 mm thick sections acquired from the diaphragm to the symphysis. 5 mm coronal and sagittal reformats were acquired. For radiation dose reduction, the following was used: automated exposure control, adjustment of mA and/or kV according to patient size. COMPARISON: [facility], [place], [place] BONE SCAN WHOLE BODY, 07/26/2020, 13:05. [facility], CT, CT CHEST ABD PEL W CON, 07/26/2020, 10:16. [facility], CT, CT ABDOMEN PELVIS W CON, 08/15/2019, 5:28. [facility], CT, ABDOMEN/PELVIS WITH CONTRAST, 01/08/2017, 23:36. FINDINGS: Image quality: Excellent. ABDOMEN: Lung bases: The previously seen left lower lobe nodule (image 9 of series 3) is better demonstrated on the recent prior CT from 07/26/2020. Heart size is normal. Solid organs: Liver is normal in size and enhancement. The gallbladder is surgically absent. Prominence of the central intrahepatic bile ducts and the extrahepatic bile ducts are nonspecific and may be related to prior cholecystectomy, but appear slightly worse when compared to the CT from 07/26/2020. Pancreas enhances normally. Spleen is normal in size and enhancement. No adrenal nodules. Kidneys demonstrate normal size and enhancement, without hydronephrosis. Simple appearing renal cysts are seen bilaterally. Peritoneum and bowel: Dilated loops of small bowel are seen measuring up to 3.6 cm in diameter with air-fluid levels, compatible with small bowel obstruction with transition point in the right lower quadrant. A nondilated loop of small bowel in the right lower quadrant demonstrates mural hyperenhancement, which may indicate focal inflammatory changes. No pneumatosis or pneumoperitoneum is seen. There is a small amount of ascites in the right abdomen and perihepatic region. Multiple diverticula are seen in the colon without signs of diverticulitis. Postsurgical changes are noted at the cecum. A small hiatal hernia is present. A nonspecific peripherally calcified lesion is seen in the right lower anterior omentum. Nodes and vessels: No retroperitoneal or mesenteric adenopathy by size criteria. Aorta and inferior vena cava are normal in size. Moderate atherosclerotic calcifications are seen in the aorta. Miscellaneous: An umbilical wall hernia in the right abdomen contains one wall of a loop of small bowel. Several additional fat containing hernias are seen in the midline above and below the level of the umbilicus. Some of these also contain a small amount of ascites. PELVIS: Genitourinary: Bladder wall thickness is normal. The uterus is normal in size. No suspicious adnexal mass is identified. A hyperdense object is seen within the vagina. Miscellaneous: No adenopathy. Small fat containing right inguinal hernia. Bones: Sclerosis at the pubic symphysis could represent degenerative changes or osteoblastic metastatic disease, similar in appearance when compared to the CT from 07/26/2020. Mildly increased density is seen in the left hemisacrum without corresponding radiotracer signal abnormality on nuclear medicine bone scan from 07/26/2020. Sclerosis is again seen involving the L2 vertebra and pedicle, which is suspicious for metastatic disease. A small sclerotic focus is seen near the right L1 pedicle. Multilevel degenerative changes are seen in the spine with grade 1 anterolisthesis of L3 on L4 and L4 on L5. Areas of sclerosis are seen in multiple left lower ribs. IMPRESSION: 1. Acute small bowel obstruction with transition point in the right lower quadrant. 2. Small amount of abdominal ascites. 3. Osseous metastatic disease distant appear significantly changed when compared to the CT or bone scan from 07/26/2020. 4. Additional chronic findings as indicated in the body of the report. There is no significant discrepancy when compared to the overnight Teleradiology report. Dictated by: Jaya Michaud M.D. on 07/30/2020 at 7:59 Approved by: Jaya Michaud M.D. on 07/30/2020 at 8:31
--- NOTE | 2020-07-29 22:04 | ED.GENADULT ---
HPI - General Adult General Chief complaint: Abdominal Pain Stated complaint: ABD Pain Time Seen by Provider: 07/29/20 21:57 History of Present Illness HPI narrative: 80-year-old woman with a history of metastatic breast cancer as well as prior colon cancer with abdominal radiation presents with the acute onset of severe abdominal pain with vomiting and diarrhea. Pain started abruptly at 1900 tonight. She states she has been in her usual health prior to that. Denies fever, cough, chest pain, palpitations, diarrhea, dysuria, headaches, nausea, shortness of breath or lower extremity edema. Related Data Home Medications Medication Instructions Recorded Confirmed ascorbic acid (vitamin C) 1,000 mg PO DAILY 01/04/18 06/18/20 cholecalciferol (vitamin D3) 75 3,000 unit PO DAILY 01/04/18 06/18/20 mcg (3,000 unit) tablet krill oil 500 mg PO DAILY 01/04/18 06/18/20 fulvestrant [Faslodex] 500 mg IM QMONTH 01/12/18 06/18/20 carica papaya [Papaya Enzyme] 1 tab PO DAILY 01/11/19 06/18/20 cyanocobalamin (vitamin B-12) 1,000 mcg DAILY 03/08/19 06/18/20 [Vitamin B-12] calcium citrate-vitamin D3 1 tab PO DAILY 08/15/19 06/18/20 [Citracal Regular] coenzyme Q10 [Co Q-10] 300 mg PO DAILY 08/15/19 06/18/20 Previous Rx's Medication Instructions Recorded melatonin 3 mg tablet 3 mg PO BEDTIME PRN #90 tab 02/01/18 Breast Prosthesis And Bra #2 each 12/14/18 palbociclib [Ibrance] 100 mg PO DAILY #21 tab 01/05/20 levothyroxine 75 mcg tablet 75 mcg PO DAILY #90 tab 03/02/20 atorvastatin 10 mg tablet 5 mg PO DAILY #45 tab 05/31/20 triamcinolone acetonide 0.1 % 1 applic TOP BID #454 gram 05/31/20 topical cream hydrochlorothiazide 12.5 mg tablet 12.5 mg PO DAILY #90 tab 06/12/20 metronidazole 0.75 % vaginal gel 1 appful VAGINAL ONCE #70 g 07/04/20 Allergies Allergy/AdvReac Type Severity Reaction Status Date / Time levofloxacin AdvReac Mild DISORIENTED, Verified 01/08/20 08:10 HOT SPELLS, FLUSHED Review of Systems Review of Systems ROS Unobtainable: All systems reviewed & are unremarkable except as noted in HPI and below Patient History Medical History Abnormal chest x-ray (~2015) Actinic keratosis (~1998) Anemia (~2015) Anxiety Atrial fibrillation Breast cancer Carpal tunnel syndrome (~2009) Cataracts, bilateral (~2003) Chicken pox Colon polyps (~1994) Foot pain (~1995) Frequent UTI Hay fever (~1989) Hearing deficit History of recurrent ear infection Hypothyroidism Measles Mumps Osteoarthritis (~1999) Osteopenia Osteoporosis Partial obstruction of small intestine Pleural effusion Pneumothorax Rheumatic fever Scoliosis Venous stasis dermatitis of both lower extremities Vertigo (~1999) Vision disorder Surgical History Anesthesia History of arthroplasty History of cardiac radiofrequency ablation (RFA) History of cataract removal with insertion of prosthetic lens History of total mastectomy Status post appendectomy Status post arthroscopy Status post cholecystectomy Status post colectomy Status post craniotomy Status post hammer toe correction Thyroid nodule (~2013) Family History Mother Heart disease Family/Other No problems noted. Sister No problems noted. Social History marital status: household members: spouse lives independently: Yes occupational status: other (retired) Smoking Status: Never smoker alcohol intake: current substance use type: does not use Smoking Status: Never smoker alcohol intake frequency: a few times a month Substance Use Type: does not use Exam Narrative Exam Narrative: General: Frail appearing woman in obvious distress, cooperative but difficult to obtain complete history due to her pain HEENT: Moist mucous membranes, normal sclera with reactive pupils, Neck: No JVD, supple Respiratory: Lungs are clear to auscultation, no wheezing no rales no rhonchi. Full and symmetrical air movement Cardiac: Regular rate and rhythm no murmurs no bruits Abdomen: Some with mild guarding, and rebound, midline small umbilical hernia that seems quite tender to palpation. Quite bowel tones Skin: Warm and dry, no rashes Neurologic: Grossly neurologically intact with no obvious asymmetries or abnormalities Extremities: No trauma, well perfused Psych: Cooperative, appropriate insight and affect Initial Vital Signs Initial Vital Signs: Vital Signs Temperature 98.7 F 07/29/20 22:02 Pulse Rate 73 07/29/20 22:02 Respiratory Rate 18 07/29/20 22:02 Blood Pressure 195/90 H 07/29/20 22:02 Pulse Oximetry 98 07/29/20 22:02 Course Orders Ordered: ED Orders 07/29/20 22:02 CT abdomen pelvis w con Stat 07/29/20 22:03 EKG-12 Lead Stat 07/29/20 22:15 COVID19 Stat 07/29/20 22:18 Complete Blood Count AUTO DIFF Stat Comprehensive Metabolic Panel Stat Lactate (Lactic Acid) Stat 07/29/20 22:30 Blood Culture Stat Hydromorphone HCl (Hydromorphone 0.5 Mg Inj) 0.5 mg IV Q15MIN PRN PRN Reason: Pain, Last Admin: 07/29/20 23:10 Dose: 0.5 mg Documented by: Admin: 07/29/20 22:23 Dose: 0.5 mg Documented by: JIM Hydromorphone HCl (Hydromorphone 0.5 Mg Inj) 0.25 mg IV Q6H PRN PRN Reason: Pain, Moderate (4-6) Lactated Ringer's (Lactated Ringers) 1,000 mls @ 100 mls/hr IV CONT HUNTER Naloxone HCl (Naloxone 0.4 Mg/Ml Vial) 0.2 mg IV Q2MIN PRN PRN Reason: Opiate Reversal Ondansetron HCl (Ondansetron 4 Mg/2 Ml Inj) 4 mg IV Q8HR PRN PRN Reason: Nausea And Vomiting Pantoprazole Sodium (Pantoprazole 20 Mg Tablet) 20 mg PO 0600 HUNTER Discontinued Medications Sodium Chloride (Normal Saline 0.9%) 1,000 mls @ 1,000 mls/hr IV BOLUS ONE Stop: 07/29/20 23:01 Last Admin: 07/29/20 22:23 Dose: 1,000 mls/hr Documented by: JIM Ondansetron HCl (Ondansetron 4 Mg/2 Ml Inj) 4 mg IV NOW ONE Stop: 07/29/20 22:03 Last Admin: 07/29/20 22:23 Dose: 4 mg Documented by: JIM Vital Signs Vital signs: Vital Signs - 8 hr 07/29/20 22:02 07/29/20 22:06 07/29/20 22:28 Temperature 98.7 F Pulse Rate 73 74 71 Respiratory Rate 18 Blood Pressure 195/90 H 166/79 H Pulse Oximetry 98 99 99 07/29/20 22:30 07/29/20 23:00 07/29/20 23:12 Temperature Pulse Rate 72 89 77 Respiratory Rate 10 L Blood Pressure Pulse Oximetry 97 94 90 L Medical Decision Making Medical Records Medical records reviewed: Yes I reviewed the patient's medical records. Lab Data Lab results reviewed: Yes I reviewed the patient's lab results. Result diagrams: 07/29/20 22:18 07/29/20 22:18 Labs: Lab Results 07/29/20 07/29/20 07/29/20 Range/Units 22:15 22:18 22:18 WBC 4.4 L (4.5-11.0) X10^3/uL RBC 3.74 L (4.0-5.2) X10^6/uL Hgb 13.1 (12.0-16.0) g/dL Hct 38.5 (36-46) % MCV 102.8 H (80-100) fL MCH 35.1 H (26-34) PG MCHC 34.1 (30-36) % RDW 14.2 (11.6-14.8) % Plt Count 339 (150-400) X10^3/uL Neut % (Auto) 75.7 H (50-75) % Lymph % (Auto) 18.8 L (25-40) % Kaufman % (Auto) 4.6 (3-14) % Eos % (Auto) 0.3 L (2-4) % Baso % (Auto) 0.6 (0-2) % Neut # (Auto) 3300 (3705-9023) /uL Lymph # (Auto) 800 L (8471-4144) /uL Kaufman # (Auto) 200 (0-900) /uL Eos # (Auto) 0 (0-450) /uL Baso # (Auto) 0 (0-100) /uL Sodium 135 L (137-145) mmol/L Potassium 4.1 (3.4-5.1) mmol/L Chloride 103 (98-107) mmol/L Carbon Dioxide 27 (22-32) mmol/L BUN 30 H (7-17) mg/dL Creatinine 0.86 (0.52-1.04) mg/dL Estimated GFR > 60.0 (>60) mL/min BUN/Creatinine Ratio 34.9 H (6-22) Glucose 145 H (80-110) mg/dL Lactate (0.7-2.1) mmol/L Calcium 9.8 (8.4-10.2) mg/dL Total Bilirubin 0.6 (0.2-1.3) mg/dL AST 34 (14-36) IU/L ALT 18 (<35) IU/L Alkaline Phosphatase 74 (38-126) U/L Total Protein 7.0 (6.3-8.2) g/dL Albumin 4.2 (3.5-5.0) g/dL Globulin 2.8 (1.7-4.1) g/dL Albumin/Globulin Ratio 1.5 (1.0-2.8) SARS-CoV-2 (PCR) Negative (Negative) 07/29/20 Range/Units 22:18 WBC (4.5-11.0) X10^3/uL RBC (4.0-5.2) X10^6/uL Hgb (12.0-16.0) g/dL Hct (36-46) % MCV (80-100) fL MCH (26-34) PG MCHC (30-36) % RDW (11.6-14.8) % Plt Count (150-400) X10^3/uL Neut % (Auto) (50-75) % Lymph % (Auto) (25-40) % Kaufman % (Auto) (3-14) % Eos % (Auto) (2-4) % Baso % (Auto) (0-2) % Neut # (Auto) (2636-3824) /uL Lymph # (Auto) (5138-6771) /uL Kaufman # (Auto) (0-900) /uL Eos # (Auto) (0-450) /uL Baso # (Auto) (0-100) /uL Sodium (137-145) mmol/L Potassium (3.4-5.1) mmol/L Chloride (98-107) mmol/L Carbon Dioxide (22-32) mmol/L BUN (7-17) mg/dL Creatinine (0.52-1.04) mg/dL Estimated GFR (>60) mL/min BUN/Creatinine Ratio (6-22) Glucose (80-110) mg/dL Lactate 1.6 (0.7-2.1) mmol/L Calcium (8.4-10.2) mg/dL Total Bilirubin (0.2-1.3) mg/dL AST (14-36) IU/L ALT (<35) IU/L Alkaline Phosphatase (38-126) U/L Total Protein (6.3-8.2) g/dL Albumin (3.5-5.0) g/dL Globulin (1.7-4.1) g/dL Albumin/Globulin Ratio (1.0-2.8) SARS-CoV-2 (PCR) (Negative) ECG Data Attestation: I personally reviewed and interpreted this ECG as follows: Interpretation: Sinus rhythm with PACs at 71 beats per minute Normal axis, normal intervals No acute ischemic changes MDM Narrative Medical decision making narrative: 80-year-old woman with a history of metastatic breast cancer him prior colon cancer with multiple abdominal surgeries presents with acute abdominal pain starting 2 hours prior to arrival. CT scan shows moderate to severe small-bowel obstruction with transition point in the right lower abdomen. Remainder of workup does not suggest acute infectious etiology. She does note that over the past number of years she has had episodes with increased pain in the right lower quadrant precipitating vomiting almost nightly and then the pain resolving. She has not had this issue for at least 3 years now. At the time they had difficulty coming to final diagnosis for the symptoms. Explained to her my concerns with the bowel obstruction and recommendation for NG tube. She understands and is willing to cooperate. Care is reviewed with Dr. Spencer, general surgery, who agrees with hospital admission and will consult in the morning. Care is reviewed with the hospital service, Ms. Leodan JIMENEZ. Patient is accepted. Pain is controlled this point findings are reviewed with patient. Questions are answered. She is safe for transfer to the floor Discharge Plan Departure Patient Disposition: Admitted as Observation Clinical Impression: Small bowel obstruction Admit Date/Time: 07/29/20 23:40 Admit Provider: Yu Alcocer
[2020-07-29] MEDS: HYDROMORPHONE 0.5 MG INJ IV ×2 (22:23→23:10)
[2020-07-29] MEDS: ONDANSETRON 4 MG/2 ML INJ IV (22:23)
[2020-07-29] MEDS: SODIUM CHLORIDE 0.9% 1,000 ML 1000 ML IV (22:23)
[2020-07-29 22:27] LABS: Add Manual Diff / Slide Review NO; Basophils Absolute Auto 0 /uL (0-100); Basophils Percent Auto 0.6 % (0-2); Eosinophils Absolute Auto 0 /uL (0-450); Eosinophils Percent Auto 0.3 % (2-4); Hematocrit 38.5 % (36-46); Hemoglobin 13.1 g/dL (12.0-16.0); Lymphocytes Absolute Auto 800 /uL (1100-4500); Lymphocytes Percent Auto 18.8 % (25-40); Mean Corpuscular HGB Conc 34.1 % (30-36); Mean Corpuscular Hemoglobin 35.1 PG (26-34); Mean Corpuscular Volume 102.8 fL (80-100); Monocytes Absolute Auto 200 /uL (0-900); Monocytes Percent Auto 4.6 % (3-14); Neutrophils Absolute Auto 3300 /uL (1500-7000); Neutrophils Percent Auto 75.7 % (50-75); Platelet Count 339 X10^3/uL (150-400); Red Blood Cell Count 3.74 X10^6/uL (4.0-5.2); Red Cell Distribution Width 14.2 % (11.6-14.8); White Blood Cell Count 4.4 X10^3/uL (4.5-11.0)
[2020-07-29 22:38] LABS: Lactate (Lactic Acid) 1.6 mmol/L (0.7-2.1)
[2020-07-29 22:39] LABS: Alanine Aminotransferase 18 IU/L (<35); Albumin 4.2 g/dL (3.5-5.0); Albumin Globulin Ratio 1.5 (1.0-2.8); Alkaline Phosphatase 74 U/L (38-126); Aspartate Aminotransferase 34 IU/L (14-36); BUN Creatinine Ratio 34.9 (6-22); Bilirubin Total 0.6 mg/dL (0.2-1.3); Blood Urea Nitrogen 30 mg/dL (7-17); Calcium 9.8 mg/dL (8.4-10.2); Carbon Dioxide 27 mmol/L (22-32); Chloride 103 mmol/L (98-107); Estimated Glomerular Filt Rate > 60.0 mL/min (>60); Globulin 2.8 g/dL (1.7-4.1); Glucose 145 mg/dL (80-110); HEMOLYSIS < 15 (0-50); Potassium 4.1 mmol/L (3.4-5.1); Sodium 135 mmol/L (137-145)
[2020-07-29 22:41] LABS: COVID19 -Nasal RAPID Negative (Negative)
--- NOTE | 2020-07-29 23:13 | PC.NURSE ---
patient placed on 2L NC
[2020-07-30] VITALS (13 sets, daily range): BP systolic 137–182; BP diastolic 61–88; PULSE 66–89; RESP 14–21; TEMP 36.2–37; O2SAT 92–99; BMI 22.8
[2020-07-30 00:35] LABS: PTT Partial Thromboplastin Tim 38 SECONDS (26.4-36.2)
[2020-07-30 00:40] LABS: Magnesium 2.1 mg/dL (1.6-2.3); Phosphorous 2.2 mg/dL (2.8-4.1)
[2020-07-30 00:44] LABS: RBC Urine None Seen (0-5/HPF)
[2020-07-30 00:45] LABS: Appearance Urine UA CLEAR; Bilirubin Urine UA NEGATIVE (NEGATIVE); Color Urine UA YELLOW; Glucose Urine UA NEGATIVE (Negative); Ketones Urine UA 1+ (NEGATIVE); Leukocyte Esterase Urine UA TRACE (NEGATIVE); Nitrite Urine UA NEGATIVE (Negative); Occult Blood Urine UA NEGATIVE (Negative); Protein Urine UA NEGATIVE (Negative); Urobilinogen Urine UA 0.2 E.U./dL (0.2)
[2020-07-30] MEDS: ONDANSETRON 4 MG/2 ML INJ IV ×2 (01:17→04:23)
[2020-07-30] MEDS: LACTATED RINGERS 1,000 ML 100 ML IV ×3 (01:18→20:47)
[2020-07-30 01:25] LABS: Bacteria Urine Occasional (0-1); Squamous Epithelial Cell Urine 0-1 /HPF (0-5/HPF); WBC Urine 0-1/HPF (0-5/HPF)
[2020-07-30] MEDS: HYDROMORPHONE 0.5 MG INJ IV ×3 (04:22→19:21)
[2020-07-30 04:41] LABS: Hematocrit 35.4 % (36-46); Hemoglobin 12.1 g/dL (12.0-16.0); Mean Corpuscular HGB Conc 34.1 % (30-36); Mean Corpuscular Hemoglobin 35.3 PG (26-34); Mean Corpuscular Volume 103.4 fL (80-100); Platelet Count 286 X10^3/uL (150-400); Red Blood Cell Count 3.42 X10^6/uL (4.0-5.2); Red Cell Distribution Width 14.1 % (11.6-14.8); White Blood Cell Count 3.2 X10^3/uL (4.5-11.0)
[2020-07-30 04:42] LABS: Add Manual Diff / Slide Review YES
[2020-07-30 04:48] LABS: INR 1.2 (0.9-1.3); Prothrombin Time 13.5 SECONDS (10.1-12.7)
[2020-07-30 04:52] LABS: BUN Creatinine Ratio 33.8 (6-22); Blood Urea Nitrogen 22 mg/dL (7-17); Calcium 8.7 mg/dL (8.4-10.2); Carbon Dioxide 30 mmol/L (22-32); Chloride 104 mmol/L (98-107); Estimated Glomerular Filt Rate > 60.0 mL/min (>60); Glucose 145 mg/dL (80-110); HEMOLYSIS < 15 (0-50); Potassium 4.3 mmol/L (3.4-5.1); Sodium 132 mmol/L (137-145)
--- NOTE | 2020-07-30 05:43 | P.HP_ITS ---
History of Present Illness History of Present Illness Date Patient Seen: 07/30/20 Time Patient Seen: 00:09 Chief complaint: ABD Pain Narrative: Patient is a 80-year-old woman Manda Garcai with a current history of metastatic breast cancer, colon cancer, hypothyroidism, venous stasis, atrial fibrillation, and osteoarthritis. Patient presents to the ED with a complaint of radiating severe abdominal pain with acute onset of severe vomiting and diarrhea. Pain started abruptly at 1900 tonight. She states she has been in her usual health prior to that. Denies fever, cough, chest pain, palpitations, diarrhea, dysuria, headaches, nausea, shortness of breath or lower extremity edema. Upon admit patient's vitals are temp 98.9?, BP 166/77, HR 77, RR 10, O2 saturat ion 90% on 2 L/NC patient apparently had desaturation following pain management in the ED and required O2. Labs WBC 4.4, sodium 135, BUN 30, glucose 145, lactate negative, BUN creatinine ratio 34.4. EKG: NSR with PACs at 71 bpm., no acute changes. Abdomen/pelvis CT: Demonstrated moderate to severe, small-bowel obstruction with a transitional point in the right upper abdomen. Dr. Spencer was consulted and recommended the patient be admitted and he will consult and follow up with her in the morning. NG tube was placed in ER. Upon admit patient states that she denies chest pain shortness of breath, body aches or chills. She has continued mild nausea and upset stomach her pain is a a out of 10 down from 9/10 in the ER, and she complains if a low back ache. Patient's NG tube is draining green bile approximately 100 cc. Patient admitted for small- bowel obstruction. Patient History Medical History Abnormal chest x-ray (~2015) Actinic keratosis (~1998) Anemia (~2015) Anxiety Atrial fibrillation Breast cancer Carpal tunnel syndrome (~2009) Cataracts, bilateral (~2003) Chicken pox Colon polyps (~1994) Foot pain (~1995) Frequent UTI Hay fever (~1989) Hearing deficit History of recurrent ear infection Hypothyroidism Measles Mumps Osteoarthritis (~1999) Osteopenia Osteoporosis Partial obstruction of small intestine Pleural effusion Pneumothorax Rheumatic fever Scoliosis Venous stasis dermatitis of both lower extremities Vertigo (~1999) Vision disorder Surgical History Anesthesia History of arthroplasty History of cardiac radiofrequency ablation (RFA) History of cataract removal with insertion of prosthetic lens History of total mastectomy Status post appendectomy Status post arthroscopy Status post cholecystectomy Status post colectomy Status post craniotomy Status post hammer toe correction Thyroid nodule (~2013) Family & Social History Family History Mother Heart disease Family/Other No problems noted. Sister No problems noted. Social History: household members spouse Prior Living Arrangements House lives independently Yes Safety & Behavioral: Feels Safe in Current Yes Environment Been Physically Hurt or No Threatened By a Person Suicidal Ideation Description None Suicide Plan Description No Plan Tobacco & Substance use: Smoking Status Never smoker alcohol intake current alcohol intake frequency a few times a month Substance Use Type does not use Meds Home Medications and Allergies Home Medications Medication Instructions Recorded Confirmed Type ascorbic acid (vitamin C) 1,000 mg PO DAILY 01/04/18 06/18/20 History cholecalciferol (vitamin D3) 75 3,000 unit PO DAILY 01/04/18 06/18/20 History mcg (3,000 unit) tablet krill oil 500 mg PO DAILY 01/04/18 06/18/20 History fulvestrant [Faslodex] 500 mg IM QMONTH 01/12/18 06/18/20 History melatonin 3 mg tablet 3 mg PO BEDTIME PRN #90 tab 02/01/18 06/18/20 Rx Breast Prosthesis And Bra #2 each 12/14/18 06/18/20 Rx carica papaya [Papaya Enzyme] 1 tab PO DAILY 01/11/19 06/18/20 History cyanocobalamin (vitamin B-12) 1,000 mcg DAILY 03/08/19 06/18/20 History [Vitamin B-12] calcium citrate-vitamin D3 1 tab PO DAILY 08/15/19 06/18/20 History [Citracal Regular] coenzyme Q10 [Co Q-10] 300 mg PO DAILY 08/15/19 06/18/20 History palbociclib [Ibrance] 100 mg PO DAILY #21 tab 01/05/20 06/18/20 Rx levothyroxine 75 mcg tablet 75 mcg PO DAILY #90 tab 03/02/20 06/18/20 Rx atorvastatin 10 mg tablet 5 mg PO DAILY #45 tab 05/31/20 06/18/20 Rx triamcinolone acetonide 0.1 % 1 applic TOP BID #454 gram 05/31/20 06/18/20 Rx topical cream hydrochlorothiazide 12.5 mg tablet 12.5 mg PO DAILY #90 tab 06/12/20 06/18/20 Rx metronidazole 0.75 % vaginal gel 1 appful VAGINAL ONCE #70 g 07/04/20 Rx Allergies Allergy/AdvReac Type Severity Reaction Status Date / Time levofloxacin AdvReac Mild DISORIENTED, Verified 01/08/20 08:10 HOT SPELLS, FLUSHED Review of Systems Review of Systems ROS: Yes All systems reviewed with the patient and are negative except as otherwise documented Constitutional Constitutional: Reports poor appetite Eyes Eyes: Reports system reviewed and no additional complaints, except as documented ENT Ears, Nose, Mouth, and Throat: Yes system reviewed and no additional complaints, except as documented Cardiovascular Cardiovascular: Reports system reviewed and no additional complaints, except as documented and Reports leg edema (Chronic venous stasis) Respiratory Respiratory: Reports system reviewed and no additional complaints, except as documented Gastrointestinal Gastrointestinal: Reports constipation and Reports nausea Genitourinary Genitourinary: Reports system reviewed and no additional complaints, except as documented Musculoskeletal Musculoskeletal: Reports system reviewed and no additional complaints, except as documented Neurologic Neurologic: Reports system reviewed and no additional complaints, except as documented Psychiatric Psychiatric: Reports system reviewed and no additional complaints, except as documented Endocrine Endocrine: Reports system reviewed and no additional complaints, except as documented Hematologic/Lymphatic Hematologic/Lymphatic: Reports system reviewed and no additional complaints, except as documented Allergic/Immunologic Allergic/Immunologic: Reports system reviewed and no additional complaints, except as documented Exam Vital Signs (past 8 hours): - 07/29/20 22:02 07/29/20 22:06 07/29/20 22:28 Temperature 98.7 F Pulse Rate 73 74 71 Respiratory Rate 18 Blood Pressure 195/90 H 166/79 H Pulse Oximetry 98 99 99 07/29/20 22:30 07/29/20 23:00 07/29/20 23:12 Temperature Pulse Rate 72 89 77 Respiratory Rate 10 L Blood Pressure Pulse Oximetry 97 94 90 L 07/29/20 23:30 07/30/20 00:00 02/15/21 00:06 Temperature Pulse Rate 89 81 Respiratory Rate Blood Pressure Pulse Oximetry 97 98 98 07/30/20 00:30 07/30/20 01:31 07/30/20 04:06 Temperature 97.2 F L Pulse Rate 84 77 Respiratory Rate 20 Blood Pressure 182/88 H Pulse Oximetry 97 98 96 07/30/20 05:00 Temperature 97.4 F L Pulse Rate 66 Respiratory Rate 16 Blood Pressure 145/67 H Pulse Oximetry 97 Oxygen Delivery Method Nasal Cannula Oxygen Flow Rate 2 Narrative Exam Narrative: General: Patient is a well-developed, moderately-nourished thin female in no distress at this time. No blood pressures or labs to be drawn on the right arm, due to mastectomy breast cancer. HEENT: Normocephalic, atraumatic, extraocular muscles intact, oral pharynx is clear and mucous membranes are moist. Neck is supple and symmetric, trachea is midline, no adenopathy, no thyroid enlargement, nontender, no masses palpated. Negative for JVD, NG tube present and draining. Chest: no nasal flaring, retractions, or tachypneic labored Lungs: Auscultation of all lung valencia are clear without adventitious sounds, wheezes, rhonchi, or rales. Cardio: S1 & S2 with regular rate and rhythm without murmur, rubs, or gallops, no carotid bruit, no cardiac pulsations present. Abdomen: Some with mild guarding, and rebound, midline small umbilical hernia that seems quite tender to palpation. Hyperactive bowel tones on the right, left faint and slowed. Musculoskeletal: Muscle strength and tone are equal within normal limits, no deformity, crepitus, effusions, cyanosis, clubbing present. Bilateral nonpitting chronic edema related to venous stasis. Full range of motion intact radial and pedal pulses are normal. Skin: Warm dry and intact without rashes, ulcerations or petechiae. Neuro: Alert and orientated x3, strength is +5/5 in all extremities, sensation to touch intact, no gross deficits noted of cranial nerves. Psych: Patient has a well-kept appearance, appropriate affect, mental status attitude thought context and judgment are appropriate for age. Objective Labs Result Diagrams: 07/30/20 04:25 07/30/20 04:25 Labs: Laboratory Results - last 24 hr 07/29/20 07/29/20 07/29/20 22:15 22:18 22:18 WBC 4.4 L RBC 3.74 L Hgb 13.1 Hct 38.5 MCV 102.8 H MCH 35.1 H MCHC 34.1 RDW 14.2 Plt Count 339 Neut % (Auto) 75.7 H Lymph % (Auto) 18.8 L Morrison % (Auto) 4.6 Eos % (Auto) 0.3 L Baso % (Auto) 0.6 Neut # (Auto) 3300 Lymph # (Auto) 800 L Morrison # (Auto) 200 Eos # (Auto) 0 Baso # (Auto) 0 PT INR APTT Sodium 135 L Potassium 4.1 Chloride 103 Carbon Dioxide 27 BUN 30 H Creatinine 0.86 Estimated GFR > 60.0 BUN/Creatinine Ratio 34.9 H Glucose 145 H Lactate Calcium 9.8 Phosphorus Magnesium Total Bilirubin 0.6 AST 34 ALT 18 Alkaline Phosphatase 74 Total Protein 7.0 Albumin 4.2 Globulin 2.8 Albumin/Globulin Ratio 1.5 Urine Color Urine Appearance Urine pH Ur Specific Flinton Urine Protein Urine Glucose (UA) Urine Ketones Urine Occult Blood Urine Nitrate Urine Bilirubin Urine Urobilinogen Ur Leukocyte Esterase Urine RBC Urine WBC Ur Squamous Epith Cells Urine Bacteria Ur Culture Indicated? Nasal Screen MRSA (PCR) SARS-CoV-2 (PCR) Negative 07/29/20 07/29/20 07/29/20 22:18 22:18 22:18 WBC RBC Hgb Hct MCV MCH MCHC RDW Plt Count Neut % (Auto) Lymph % (Auto) Morrison % (Auto) Eos % (Auto) Baso % (Auto) Neut # (Auto) Lymph # (Auto) Morrison # (Auto) Eos # (Auto) Baso # (Auto) PT INR APTT 38 H Sodium Potassium Chloride Carbon Dioxide BUN Creatinine Estimated GFR BUN/Creatinine Ratio Glucose Lactate 1.6 Calcium Phosphorus Magnesium 2.1 Total Bilirubin AST ALT Alkaline Phosphatase Total Protein Albumin Globulin Albumin/Globulin Ratio Urine Color Urine Appearance Urine pH Ur Specific Flinton Urine Protein Urine Glucose (UA) Urine Ketones Urine Occult Blood Urine Nitrate Urine Bilirubin Urine Urobilinogen Ur Leukocyte Esterase Urine RBC Urine WBC Ur Squamous Epith Cells Urine Bacteria Ur Culture Indicated? Nasal Screen MRSA (PCR) SARS-CoV-2 (PCR) 07/29/20 07/30/20 07/30/20 22:18 00:40 01:35 WBC RBC Hgb Hct MCV MCH MCHC RDW Plt Count Neut % (Auto) Lymph % (Auto) Morrison % (Auto) Eos % (Auto) Baso % (Auto) Neut # (Auto) Lymph # (Auto) Morrison # (Auto) Eos # (Auto) Baso # (Auto) PT INR APTT Sodium Potassium Chloride Carbon Dioxide BUN Creatinine Estimated GFR BUN/Creatinine Ratio Glucose Lactate Calcium Phosphorus 2.2 L Magnesium Total Bilirubin AST ALT Alkaline Phosphatase Total Protein Albumin Globulin Albumin/Globulin Ratio Urine Color Yellow Urine Appearance Clear Urine pH 7.0 Ur Specific Flinton 1.010 Urine Protein Negative Urine Glucose (UA) Negative Urine Ketones 1+ H Urine Occult Blood Negative Urine Nitrate Negative Urine Bilirubin Negative Urine Urobilinogen 0.2 Ur Leukocyte Esterase Trace H Urine RBC None seen Urine WBC 0-1/hpf Ur Squamous Epith Cells 0-1 /hpf Urine Bacteria Occasional (0-1) Ur Culture Indicated? Culture not indicate Nasal Screen MRSA (PCR) Negative for mrsa SARS-CoV-2 (PCR) 07/30/20 07/30/20 07/30/20 04:25 04:25 04:25 WBC 3.2 L RBC 3.42 L Hgb 12.1 Hct 35.4 L MCV 103.4 H MCH 35.3 H MCHC 34.1 RDW 14.1 Plt Count 286 Neut % (Auto) Not Reportable Lymph % (Auto) Not Reportable Morrison % (Auto) Not Reportable Eos % (Auto) Not Reportable Baso % (Auto) Not Reportable Neut # (Auto) Lymph # (Auto) Not Reportable Morrison # (Auto) Not Reportable Eos # (Auto) Baso # (Auto) Not Reportable PT 13.5 H INR 1.2 APTT Sodium 132 L Potassium 4.3 Chloride 104 Carbon Dioxide 30 BUN 22 H Creatinine 0.65 Estimated GFR > 60.0 BUN/Creatinine Ratio 33.8 H Glucose 145 H Lactate Calcium 8.7 Phosphorus Magnesium Total Bilirubin AST ALT Alkaline Phosphatase Total Protein Albumin Globulin Albumin/Globulin Ratio Urine Color Urine Appearance Urine pH Ur Specific Flinton Urine Protein Urine Glucose (UA) Urine Ketones Urine Occult Blood Urine Nitrate Urine Bilirubin Urine Urobilinogen Ur Leukocyte Esterase Urine RBC Urine WBC Ur Squamous Epith Cells Urine Bacteria Ur Culture Indicated? Nasal Screen MRSA (PCR) SARS-CoV-2 (PCR) Assessment & Plan Assessment & Plan narrative: This patient requires acute care inpatient hospital management for small bowel obstruction. The patient is at much higher risk for medical and surgical complications because of her antineoplastic agents, breast and colon cancer. These factors increase the difficulty and complexity of medical and surgical interventions and increases the chances of poor outcomes such as morbidity and mortality. The patient's atrial fibrillation will likely impact his or her oxygenation, and created greater complexity in acuity to her medical management and surgical interventions. 1. Small bowel obstruction/abdominal pain, acute, Right quadrants abdominal, stable patient not in acute distress at this time, present on admission. -possible ischemic disease versus acute enteritis versus small bowel obstruction -vitals are temp 98.9?, BP 166/77, HR 77, RR 10, O2 saturation 90% on 2 L/NC patient apparently had desaturation following pain management in the ED and required O2. Labs WBC 4.4, sodium 135, BUN 30, glucose 145, lactate negative, BUN creatinine ratio 34.4. EKG: NSR with PACs at 71 bpm., no acute changes. Abdomen/pelvis CT: Demonstrated moderate to severe, small-bowel obstruction with a transitional point in the right upper abdomen. Dr. Spencer was consulted and recommended the patient be admitted and he will consult and follow up with her in the morning. -IV fluids: LR 100 cc/hour, monitor electrolytes, maintain potassium greater than 4 and magnesium greater than 2 -patient admitted to telemedicine, labs ordered CBC, CMP, and Mag q.day, A1C, TSH, phos, UA, blood cultures pending --patient to be monitored on tele medicine, vital signs q.4 hours, intake and output monitored Q shift, weight measure daily, blood sugars Q 6 hours while NPO. -NPO except for sips, ice chips, and water as needed -NG tube placed -Antiemetics, pain meds as needed, ambulate as tolerated -Dr. Spencer will follow and consider small-bowel follow-through in a.m. depending on clinical exam. -consults ordered physical therapy, occupational therapy. -prevention vaccine recommend flu 2. Atrial fibrillation, chronic, stable, not present on admission -patient monitored on telemedicine. 3. Primary malignant neoplasm of breast with metastasis, Chronic, not present on admission -Hold patient's Palbocicib & Faslodex while NPO 4. Acquired hypothyroidism, chronic, stable, not present on admission -Hold patient's levothyroxine while NPO 5. Venous stasis/edema, chronic, unknown control, not present on admission -hold patient's HCTZ while NPO -consults ordered physical therapy, occupational therapy, respiratory therapy. -prevention vaccine: Recommend seasonal flu shingles, pneumonia, COVID-19 Code status:DNR Surrogate/plan of care: COVID PCR:Negative VTE prophylaxis:Held due to possible surgical procedure tomorrow/SCDs continue
[2020-07-30 06:01] LABS: Macrocytosis 1+; Neutrophils Absolute Manual 2688 /uL (3000-5900); Total Cells Counted 100
--- NOTE | 2020-07-30 07:23 | DI.RAD.S_ITS ---
PROCEDURE: [place] SMALL BOWEL FOLLOW THROUGH INDICATIONS: small bowel obstruction. Perform with gastrografin COMPARISON: [facility], , [place] SMALL BOWEL FOLLOW THROUGH, 08/15/2019, 18:33. FINDINGS: KUB: Preprocedural solid propellant processor film demonstrates an esophagogastric tube within the gastric lumen, and scattered surgical clips over the right upper quadrant and right pelvis. Note is made of excreted contrast within the bladder lumen from CT scanning performed last evening a moderately dilated small bowel gas pattern is seen at the abdomen/pelvis junction. No suspicious abdominal calcifications. Visualized solid organ contours appear normal. No suspicious bony abnormalities. Small bowel: There is prominently delayed transit time of Gastrografin oral contrast through the proximal small bowel. Small bowel loops are of generalized enlarged caliber throughout measuring up to 4.1-4.4 cm. Mucosal folds are smooth and of normal thickness. No strictures, intraluminal masses, or extrinsic mass effects are noted. The terminal ileum is identified, and is normal in morphology. The patient was nauseated over the course of this examination and than repeated emesis resulted in termination of the procedure. IMPRESSION: Small-bowel obstruction pattern distally, likely present, but oral contrast was only seen to transit through approximately the proximal half of the small bowel over the course of the examination. Oral contrast did not enter the colon. Repeated emesis and nausea of the patient resulted in term in a vences of the procedure, after consultation with the consulting surgeon. Dictated by: Adan Dick M.D. on 07/30/2020 at 15:02 Approved by: Adan Dick M.D. on 07/30/2020 at 15:06
--- NOTE | 2020-07-30 09:14 | OT.IPNOTE ---
Per Dr. Renee pt not appropriate for OT eval at this time, therefore discharge OT eval orders.
[2020-07-30] MEDS: PANTOPRAZOLE 40 MG VIAL 20 MG IV (09:16)
--- NOTE | 2020-07-30 09:16 | PT-IP ANOTE ---
Received PT orders and reviewed the chart. Per OT conversation with hospitalist, discharge therapy orders at this time as pt is not appropriate for therapy. PT remains available for consult if pt condition changes.
--- NOTE | 2020-07-30 12:58 | P.HP_ITS ---
History of Present Illness History of Present Illness Date Patient Seen: 07/30/20 Time Patient Seen: 12:58 Chief complaint: ABD Pain Narrative: 80-year-old female was admitted to the hospital with a small-bowel obstruction. She has metastatic breast cancer currently on Fulvestrant and Denosumab followed by the cancer center here at [facility]. In brief she had left breast cancer 2006 ER+ HER2- treated with lumpectomy and endocrine therapy. 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 In 2015 she developed metastatic breast cancer with malignant pleural effusion. She developed abdominal pain with associated nausea and vomiting yesterday and was admitted. CT abdomen pelvis at admission demonstrates small bowel obstruction with transition point in the right lower quadrant small volume ascites no free air. She currently has right lower quadrant pain a nasogastric tube has been placed. Patient History Medical History Abnormal chest x-ray (~2015) Actinic keratosis (~1998) Anemia (~2015) Anxiety Atrial fibrillation Breast cancer Carpal tunnel syndrome (~2009) Cataracts, bilateral (~2003) Chicken pox Colon polyps (~1994) Foot pain (~1995) Frequent UTI Hay fever (~1989) Hearing deficit History of recurrent ear infection Hypothyroidism Measles Mumps Osteoarthritis (~1999) Osteopenia Osteoporosis Partial obstruction of small intestine Pleural effusion Pneumothorax Rheumatic fever Scoliosis Venous stasis dermatitis of both lower extremities Vertigo (~1999) Vision disorder Surgical History Anesthesia History of arthroplasty History of cardiac radiofrequency ablation (RFA) History of cataract removal with insertion of prosthetic lens History of total mastectomy Status post appendectomy Status post arthroscopy Status post cholecystectomy Status post colectomy Status post craniotomy Status post hammer toe correction Thyroid nodule (~2013) Family & Social History Family History Mother Heart disease Family/Other No problems noted. Sister No problems noted. Social History: household members spouse Prior Living Arrangements House lives independently Yes Safety & Behavioral: Feels Safe in Current Yes Environment Been Physically Hurt or No Threatened By a Person Suicidal Ideation Description None Suicide Plan Description No Plan Tobacco & Substance use: Smoking Status Never smoker alcohol intake current alcohol intake frequency a few times a month Substance Use Type does not use Meds Home Medications and Allergies Home Medications Medication Instructions Recorded Confirmed Type ascorbic acid (vitamin C) 1,000 mg PO DAILY 01/04/18 06/18/20 History cholecalciferol (vitamin D3) 75 3,000 unit PO DAILY 01/04/18 06/18/20 History mcg (3,000 unit) tablet krill oil 500 mg PO DAILY 01/04/18 06/18/20 History fulvestrant [Faslodex] 500 mg IM QMONTH 01/12/18 06/18/20 History melatonin 3 mg tablet 3 mg PO BEDTIME PRN #90 tab 02/01/18 06/18/20 Rx Breast Prosthesis And Bra #2 each 12/14/18 06/18/20 Rx carica papaya [Papaya Enzyme] 1 tab PO DAILY 01/11/19 06/18/20 History cyanocobalamin (vitamin B-12) 1,000 mcg DAILY 03/08/19 06/18/20 History [Vitamin B-12] calcium citrate-vitamin D3 1 tab PO DAILY 08/15/19 06/18/20 History [Citracal Regular] coenzyme Q10 [Co Q-10] 300 mg PO DAILY 08/15/19 06/18/20 History palbociclib [Ibrance] 100 mg PO DAILY #21 tab 01/05/20 06/18/20 Rx levothyroxine 75 mcg tablet 75 mcg PO DAILY #90 tab 03/02/20 06/18/20 Rx atorvastatin 10 mg tablet 5 mg PO DAILY #45 tab 05/31/20 06/18/20 Rx triamcinolone acetonide 0.1 % 1 applic TOP BID #454 gram 05/31/20 06/18/20 Rx topical cream hydrochlorothiazide 12.5 mg tablet 12.5 mg PO DAILY #90 tab 06/12/20 06/18/20 Rx metronidazole 0.75 % vaginal gel 1 appful VAGINAL ONCE #70 g 07/04/20 Rx Allergies Allergy/AdvReac Type Severity Reaction Status Date / Time levofloxacin AdvReac Mild DISORIENTED, Verified 01/08/20 08:10 HOT SPELLS, FLUSHED Review of Systems Review of Systems ROS: Yes unobtainable due to mental condition Exam Vital Signs (past 8 hours): - 07/30/20 05:00 07/30/20 07:39 07/30/20 09:00 Temperature 97.4 F L 97.6 F Pulse Rate 66 82 Respiratory Rate 16 14 Blood Pressure 145/67 H 162/72 H Pulse Oximetry 97 99 95 07/30/20 11:17 Temperature 97.7 F Pulse Rate 87 Respiratory Rate 15 Blood Pressure 159/74 H Pulse Oximetry 94 Oxygen Delivery Method Room Air Oxygen Flow Rate 0 Narrative Exam Narrative: General elderly woman thin extremely tired Neurologic-oriented x3. Awakens to voice has difficulty answering questions due to fatigue but answers appropriately. Chest nonlabored respirations Cardiac-regular rate abdomen mildly tender right lower quadrant moderately distended no peritonitis Extremities warm well perfused Objective Labs Result Diagrams: 07/30/20 04:25 07/30/20 04:25 Labs: Laboratory Results - last 24 hr 07/29/20 07/29/20 07/29/20 22:15 22:18 22:18 WBC 4.4 L RBC 3.74 L Hgb 13.1 Hct 38.5 MCV 102.8 H MCH 35.1 H MCHC 34.1 RDW 14.2 Plt Count 339 Neut % (Auto) 75.7 H Lymph % (Auto) 18.8 L Randolph % (Auto) 4.6 Eos % (Auto) 0.3 L Baso % (Auto) 0.6 Neut # (Auto) 3300 Lymph # (Auto) 800 L Randolph # (Auto) 200 Eos # (Auto) 0 Baso # (Auto) 0 Total Counted Seg Neutrophils % Band Neutrophils % Lymphocytes % (Manual) Atypical Lymphs % Monocytes % (Manual) Neutrophils # (Manual) RBC Morphology Macrocytosis PT INR APTT Sodium 135 L Potassium 4.1 Chloride 103 Carbon Dioxide 27 BUN 30 H Creatinine 0.86 Estimated GFR > 60.0 BUN/Creatinine Ratio 34.9 H Glucose 145 H Lactate Calcium 9.8 Phosphorus Magnesium Total Bilirubin 0.6 AST 34 ALT 18 Alkaline Phosphatase 74 Total Protein 7.0 Albumin 4.2 Globulin 2.8 Albumin/Globulin Ratio 1.5 Urine Color Urine Appearance Urine pH Ur Specific Talmage Urine Protein Urine Glucose (UA) Urine Ketones Urine Occult Blood Urine Nitrate Urine Bilirubin Urine Urobilinogen Ur Leukocyte Esterase Urine RBC Urine WBC Ur Squamous Epith Cells Urine Bacteria Ur Culture Indicated? Nasal Screen MRSA (PCR) SARS-CoV-2 (PCR) Negative 07/29/20 07/29/20 07/29/20 22:18 22:18 22:18 WBC RBC Hgb Hct MCV MCH MCHC RDW Plt Count Neut % (Auto) Lymph % (Auto) Randolph % (Auto) Eos % (Auto) Baso % (Auto) Neut # (Auto) Lymph # (Auto) Randolph # (Auto) Eos # (Auto) Baso # (Auto) Total Counted Seg Neutrophils % Band Neutrophils % Lymphocytes % (Manual) Atypical Lymphs % Monocytes % (Manual) Neutrophils # (Manual) RBC Morphology Macrocytosis PT INR APTT 38 H Sodium Potassium Chloride Carbon Dioxide BUN Creatinine Estimated GFR BUN/Creatinine Ratio Glucose Lactate 1.6 Calcium Phosphorus Magnesium 2.1 Total Bilirubin AST ALT Alkaline Phosphatase Total Protein Albumin Globulin Albumin/Globulin Ratio Urine Color Urine Appearance Urine pH Ur Specific Talmage Urine Protein Urine Glucose (UA) Urine Ketones Urine Occult Blood Urine Nitrate Urine Bilirubin Urine Urobilinogen Ur Leukocyte Esterase Urine RBC Urine WBC Ur Squamous Epith Cells Urine Bacteria Ur Culture Indicated? Nasal Screen MRSA (PCR) SARS-CoV-2 (PCR) 07/29/20 07/30/20 07/30/20 22:18 00:40 01:35 WBC RBC Hgb Hct MCV MCH MCHC RDW Plt Count Neut % (Auto) Lymph % (Auto) Randolph % (Auto) Eos % (Auto) Baso % (Auto) Neut # (Auto) Lymph # (Auto) Randolph # (Auto) Eos # (Auto) Baso # (Auto) Total Counted Seg Neutrophils % Band Neutrophils % Lymphocytes % (Manual) Atypical Lymphs % Monocytes % (Manual) Neutrophils # (Manual) RBC Morphology Macrocytosis PT INR APTT Sodium Potassium Chloride Carbon Dioxide BUN Creatinine Estimated GFR BUN/Creatinine Ratio Glucose Lactate Calcium Phosphorus 2.2 L Magnesium Total Bilirubin AST ALT Alkaline Phosphatase Total Protein Albumin Globulin Albumin/Globulin Ratio Urine Color Yellow Urine Appearance Clear Urine pH 7.0 Ur Specific Talmage 1.010 Urine Protein Negative Urine Glucose (UA) Negative Urine Ketones 1+ H Urine Occult Blood Negative Urine Nitrate Negative Urine Bilirubin Negative Urine Urobilinogen 0.2 Ur Leukocyte Esterase Trace H Urine RBC None seen Urine WBC 0-1/hpf Ur Squamous Epith Cells 0-1 /hpf Urine Bacteria Occasional (0-1) Ur Culture Indicated? Culture not indicate Nasal Screen MRSA (PCR) Negative for mrsa SARS-CoV-2 (PCR) 07/30/20 07/30/20 07/30/20 04:25 04:25 04:25 WBC 3.2 L RBC 3.42 L Hgb 12.1 Hct 35.4 L MCV 103.4 H MCH 35.3 H MCHC 34.1 RDW 14.1 Plt Count 286 Neut % (Auto) Not Reportable Lymph % (Auto) Not Reportable Randolph % (Auto) Not Reportable Eos % (Auto) Not Reportable Baso % (Auto) Not Reportable Neut # (Auto) Lymph # (Auto) Not Reportable Randolph # (Auto) Not Reportable Eos # (Auto) Baso # (Auto) Not Reportable Total Counted 100 Seg Neutrophils % 71.0 H Band Neutrophils % 13.0 H Lymphocytes % (Manual) 9.0 L Atypical Lymphs % 5.0 H Monocytes % (Manual) 2.0 Neutrophils # (Manual) 2688 L RBC Morphology See below Macrocytosis 1+ H PT 13.5 H INR 1.2 APTT Sodium 132 L Potassium 4.3 Chloride 104 Carbon Dioxide 30 BUN 22 H Creatinine 0.65 Estimated GFR > 60.0 BUN/Creatinine Ratio 33.8 H Glucose 145 H Lactate Calcium 8.7 Phosphorus Magnesium Total Bilirubin AST ALT Alkaline Phosphatase Total Protein Albumin Globulin Albumin/Globulin Ratio Urine Color Urine Appearance Urine pH Ur Specific Talmage Urine Protein Urine Glucose (UA) Urine Ketones Urine Occult Blood Urine Nitrate Urine Bilirubin Urine Urobilinogen Ur Leukocyte Esterase Urine RBC Urine WBC Ur Squamous Epith Cells Urine Bacteria Ur Culture Indicated? Nasal Screen MRSA (PCR) SARS-CoV-2 (PCR) Assessment & Plan Assessment & Plan narrative: 80-year-old woman with metastatic breast cancer and history of appendiceal carcinoma status post chemo possible radiation here with a small-bowel obstruction. Care was discussed with the hospitalist Dr. Renee, Dr. Calix of Oncology, and Kia of care management. CT A/P demonstrates small bowel obstruction with transition point in the RLQ. A small bowel follow through shows failure of the contrast to progress beyond the proximal small bowel. In general I would recommend an exploratory laparotomy for treatment of the SBO given the failed small bowel follow through and CT findings, I suspect the cause of her obstruction is either adhesive or malignant. However with her history of prior abdominal surgery and possible abdominal radiation, surgery is high risk for morbidity (anstamotic leak, bleeding, infection, damage to surrounding structures, enterotomy) and mortality, especially given her fragile state secondary to metastatic breast cancer with disease progression. I had a long discussion with the patient as well as her son and the patient feels adamant that she does not want to proceed with an operation and I think this is reasonable. She understands and clearly states that without an operation she will likely from the bowel obstruction and she is Ok with this. She also understands that an operation is high risk. -[id number]-ok for sips and ice chips -Comfort measures
--- NOTE | 2020-07-30 14:39 | CM.DANOTE ---
Patient is an 80 year old female who was admitted on 07/29/20 for Abd Pain. Pt has [facility] and [facility] for insurance and her PCP is Dr. Jessica Bush. EMR was reviewed. Per MD, pt with hx of AFIB, colon cancer, and current breast cancer with mets. Pt's imaging shows SBO and pt made NPO with NG tube in the ED and admitted to Acute Care. Per Surgeon, pt had SBFT today and shows pt's obstruction is severe and now allowing anything to pass through the bowel. Typically surgery would be recommended but due to pt's medical complexity and risks pt is not a good surgical candidate. Surgeon discussed bedside with pt and she confirms that she does NOT want surgery and is aware that her prognosis is poor as she will remain NPO and could in a week or so. Surgeon also updated pt's son Yeison in [place] with information above and son is optimistic that pt will be able to improve with conservative tx as pt has overcome many medical complications and diagnoses. Surgeon also called pt's Oncologist at [facility] and updated and Oncologist feels pt still could benefit from ongoing oncology tx. SW called Kimberley, Patient Navigator at [facility], and updated on above and she confirms that pt has been living alone but has financial means for assist if needed and Kimberley has worked closely with the pt for the past 3 years and will plan to meet bedside with pt in the morning. SW attempted to meet bedside with pt after SBFT but pt too drowsy and uncomfortable and requested SW come back later. Hospitalist plans to have further discussion with pt later today or tomorrow regarding her decision to decline surgical intervention and possible switch to Comfort Care. SW attempted to call [facility] to inquire about their availability and how soon they could potentially start pt on service but their phone system has been down since oxygen equipment aide and fax also not working. Plan: SW to follow closely for call to [facility] when their phones are working and bedside discussion from pt's established Patient Navigator Kimberley in the morning. REINA Cuadra Discharge Planning/Care Management CM Discharge Assessment Start: 07/30/20 13:57 Freq: Status: Active Protocol: Document 07/30/20 13:57 BF (Rec: 07/30/20 14:39 BF [id number]) Discharge Planning Assessment Assigned Garage Supervisor REINA Adam DPOA/Assigned Designee Name Carlos Garcia Contact Information [phone] Advance Directives? Yes Advance Directives on File Yes: per chart we have a copy History Provided By Patient,Family Member,Medical Record Has Patient been admitted in last 30 No days? Prior Living Arrangements House Household Members none Comment Spouse few months ago in Apr 2020 Type of transporation used prior to Drives own vehicle admit Independent with ADL's Yes Is patient alert and oriented? Yes Needs Assistance With Home Chores / Shopping Caregiver for Another No Comment Established at [facility] Comment Possible SNF vs Comfort/ Hospice Barriers to Discharge Yes Discharge Plan Hospice Additional Comment Attempting to contact [facility] to determine their availability to start pt to service Whiteboard Updated in Patient Room with Yes name and ext. # of Garage Supervisor Review Status In Process Please Provide Date Initial DC 07/30/20 Assessment Was Performed Next Review Type Continued Stay Review
--- NOTE | 2020-07-30 15:27 | PM.PN.1 ---
Subjective Subjective Date Patient Seen: 07/30/20 Time Patient Seen: 15:28 Interval history: Manda Garcia is an 79-year-old female with past medical history of recurrent breast cancer with bony metastasis, osteoporosis, hyperlipidemia, and hypothyroidism, appendiceal carninoma s/p hemicolectomy who is admitted for a small-bowel obstruction. She underwent a small-bowel follow-through which showed a persistent bowel obstruction without passage of contrast. Study was terminated by persistent nausea and vomiting. The patient refused surgery after discussion with the surgeon, Dr. Spencer. I went over continued options including continued NG tube with the possibility of PICC line placement and TPN. The patient discussed the desire to return to eating. I said that this may not occur without surgery, and she also seemingly was not interested in SNF placement with continued IV nutrition if this does not resolve. If this does not resolve, she is likely to get sick and ultimately succomb to this process. We also talked about comfort care and hospice. The patient is not ready to make a decision at this time and would like more time to see if her obstruction will resolve on its own like the last time she was admitted. She is also interested in palliative care consultation. Exam Vital Signs (past 8 hours): - 07/30/20 07:39 07/30/20 09:00 07/30/20 11:17 Temperature 97.6 F 97.7 F Pulse Rate 82 87 Respiratory Rate 14 15 Blood Pressure 162/72 H 159/74 H Pulse Oximetry 99 95 94 Oxygen Delivery Method Room Air Oxygen Flow Rate 0 Narrative Exam Narrative: ENERAL APPEARANCE: acutely ill appearing, malnourished female. In no distress but appears uncomfortable. NG tube in place with clear output. SKIN: Inspection of the skin reveals no rashes, ulcerations or petechiae. HEENT: Oral mucosa moist, NG tube in place with clear output. EOMI, sclerae anicteric. NECK: Supple and symmetric. There was no thyroid enlargement, and no tenderness, or masses were felt. CHEST: Normal AP diameter and normal contour without any kyphoscoliosis. LUNGS: Auscultation of the lungs revealed no wheezes, rhonchi, or rales. CARDIOVASCULAR: There was a regular rate and rhythm without any murmurs, gallops, rubs. Peripheral pulses were 2+ and symmetric. ABDOMEN: distended and mildly tender throughout, no bowel tones on auscultation. MUSCULOSKELETAL: There was no tenderness or effusions noted. Muscle strength and tone were normal. EXTREMITIES: No cyanosis, clubbing or edema. NEUROLOGIC: Alert and oriented x 3. falls asleep easily and fatigued. No focal deficits. Objective Labs Result Diagrams: 07/30/20 04:25 07/30/20 04:25 Labs: Laboratory Results - last 24 hr 07/29/20 07/29/20 07/29/20 22:15 22:18 22:18 WBC 4.4 L RBC 3.74 L Hgb 13.1 Hct 38.5 MCV 102.8 H MCH 35.1 H MCHC 34.1 RDW 14.2 Plt Count 339 Neut % (Auto) 75.7 H Lymph % (Auto) 18.8 L [place] % (Auto) 4.6 Eos % (Auto) 0.3 L Baso % (Auto) 0.6 Neut # (Auto) 3300 Lymph # (Auto) 800 L [place] # (Auto) 200 Eos # (Auto) 0 Baso # (Auto) 0 Total Counted Seg Neutrophils % Band Neutrophils % Lymphocytes % (Manual) Atypical Lymphs % Monocytes % (Manual) Neutrophils # (Manual) RBC Morphology Macrocytosis PT INR APTT Sodium 135 L Potassium 4.1 Chloride 103 Carbon Dioxide 27 BUN 30 H Creatinine 0.86 Estimated GFR > 60.0 BUN/Creatinine Ratio 34.9 H Glucose 145 H Lactate Calcium 9.8 Phosphorus Magnesium Total Bilirubin 0.6 AST 34 ALT 18 Alkaline Phosphatase 74 Total Protein 7.0 Albumin 4.2 Globulin 2.8 Albumin/Globulin Ratio 1.5 Urine Color Urine Appearance Urine pH Ur Specific [place] Urine Protein Urine Glucose (UA) Urine Ketones Urine Occult Blood Urine Nitrate Urine Bilirubin Urine Urobilinogen Ur Leukocyte Esterase Urine RBC Urine WBC Ur Squamous Epith Cells Urine Bacteria Ur Culture Indicated? Nasal Screen MRSA (PCR) SARS-CoV-2 (PCR) Negative 07/29/20 07/29/20 07/29/20 22:18 22:18 22:18 WBC RBC Hgb Hct MCV MCH MCHC RDW Plt Count Neut % (Auto) Lymph % (Auto) [place] % (Auto) Eos % (Auto) Baso % (Auto) Neut # (Auto) Lymph # (Auto) [place] # (Auto) Eos # (Auto) Baso # (Auto) Total Counted Seg Neutrophils % Band Neutrophils % Lymphocytes % (Manual) Atypical Lymphs % Monocytes % (Manual) Neutrophils # (Manual) RBC Morphology Macrocytosis PT INR APTT 38 H Sodium Potassium Chloride Carbon Dioxide BUN Creatinine Estimated GFR BUN/Creatinine Ratio Glucose Lactate 1.6 Calcium Phosphorus Magnesium 2.1 Total Bilirubin AST ALT Alkaline Phosphatase Total Protein Albumin Globulin Albumin/Globulin Ratio Urine Color Urine Appearance Urine pH Ur Specific [place] Urine Protein Urine Glucose (UA) Urine Ketones Urine Occult Blood Urine Nitrate Urine Bilirubin Urine Urobilinogen Ur Leukocyte Esterase Urine RBC Urine WBC Ur Squamous Epith Cells Urine Bacteria Ur Culture Indicated? Nasal Screen MRSA (PCR) SARS-CoV-2 (PCR) 07/29/20 07/30/20 07/30/20 22:18 00:40 01:35 WBC RBC Hgb Hct MCV MCH MCHC RDW Plt Count Neut % (Auto) Lymph % (Auto) [place] % (Auto) Eos % (Auto) Baso % (Auto) Neut # (Auto) Lymph # (Auto) [place] # (Auto) Eos # (Auto) Baso # (Auto) Total Counted Seg Neutrophils % Band Neutrophils % Lymphocytes % (Manual) Atypical Lymphs % Monocytes % (Manual) Neutrophils # (Manual) RBC Morphology Macrocytosis PT INR APTT Sodium Potassium Chloride Carbon Dioxide BUN Creatinine Estimated GFR BUN/Creatinine Ratio Glucose Lactate Calcium Phosphorus 2.2 L Magnesium Total Bilirubin AST ALT Alkaline Phosphatase Total Protein Albumin Globulin Albumin/Globulin Ratio Urine Color Yellow Urine Appearance Clear Urine pH 7.0 Ur Specific [place] 1.010 Urine Protein Negative Urine Glucose (UA) Negative Urine Ketones 1+ H Urine Occult Blood Negative Urine Nitrate Negative Urine Bilirubin Negative Urine Urobilinogen 0.2 Ur Leukocyte Esterase Trace H Urine RBC None seen Urine WBC 0-1/hpf Ur Squamous Epith Cells 0-1 /hpf Urine Bacteria Occasional (0-1) Ur Culture Indicated? Culture not indicate Nasal Screen MRSA (PCR) Negative for mrsa SARS-CoV-2 (PCR) 07/30/20 07/30/20 07/30/20 04:25 04:25 04:25 WBC 3.2 L RBC 3.42 L Hgb 12.1 Hct 35.4 L MCV 103.4 H MCH 35.3 H MCHC 34.1 RDW 14.1 Plt Count 286 Neut % (Auto) Not Reportable Lymph % (Auto) Not Reportable [place] % (Auto) Not Reportable Eos % (Auto) Not Reportable Baso % (Auto) Not Reportable Neut # (Auto) Lymph # (Auto) Not Reportable [place] # (Auto) Not Reportable Eos # (Auto) Baso # (Auto) Not Reportable Total Counted 100 Seg Neutrophils % 71.0 H Band Neutrophils % 13.0 H Lymphocytes % (Manual) 9.0 L Atypical Lymphs % 5.0 H Monocytes % (Manual) 2.0 Neutrophils # (Manual) 2688 L RBC Morphology See below Macrocytosis 1+ H PT 13.5 H INR 1.2 APTT Sodium 132 L Potassium 4.3 Chloride 104 Carbon Dioxide 30 BUN 22 H Creatinine 0.65 Estimated GFR > 60.0 BUN/Creatinine Ratio 33.8 H Glucose 145 H Lactate Calcium 8.7 Phosphorus Magnesium Total Bilirubin AST ALT Alkaline Phosphatase Total Protein Albumin Globulin Albumin/Globulin Ratio Urine Color Urine Appearance Urine pH Ur Specific [place] Urine Protein Urine Glucose (UA) Urine Ketones Urine Occult Blood Urine Nitrate Urine Bilirubin Urine Urobilinogen Ur Leukocyte Esterase Urine RBC Urine WBC Ur Squamous Epith Cells Urine Bacteria Ur Culture Indicated? Nasal Screen MRSA (PCR) SARS-CoV-2 (PCR) [facility] Medical History Abnormal chest x-ray (~2015) Actinic keratosis (~1998) Anemia (~2015) Anxiety Atrial fibrillation Breast cancer Carpal tunnel syndrome (~2009) Cataracts, bilateral (~2003) Chicken pox Colon polyps (~1994) Foot pain (~1995) Frequent UTI Hay fever (~1989) Hearing deficit History of recurrent ear infection Hypothyroidism Measles Mumps Osteoarthritis (~1999) Osteopenia Osteoporosis Partial obstruction of small intestine Pleural effusion Pneumothorax Rheumatic fever Scoliosis Venous stasis dermatitis of both lower extremities Vertigo (~1999) Vision disorder Surgical History Anesthesia History of arthroplasty History of cardiac radiofrequency ablation (RFA) History of cataract removal with insertion of prosthetic lens History of total mastectomy Status post appendectomy Status post arthroscopy Status post cholecystectomy Status post colectomy Status post craniotomy Status post hammer toe correction Thyroid nodule (~2013) Family History Mother Heart disease Family/Other No problems noted. Sister No problems noted. Social History marital status: household members: none lives independently: Yes occupational status: other (retired) Smoking Status: Never smoker alcohol intake: current substance use type: does not use Assessment & Plan Assessment & Plan narrative: Manda Garcia is an 80-year-old female with past medical history of recurrent breast cancer with bony metastasis, osteoporosis, hyperlipidemia, and hypothyroidism who is admitted for a small-bowel obstruction, likely secondary to adhesions given her surgical history. 1. Small-bowel obstruction, acute, present on admission - -continue NPO and IV fluids. IV pain control with dilaudid. -start reglan, continue zofran as needed. -CT scan showed acute SBO with transition point in the RLQ. Appreciate consultation by Dr. Spencer. Patient refused surgery today given that she very possibly would not survive the procedure or the recovery from it. She was not interested in hospice or comfort measures either at this time but also does not want to continue [employer] supplemental IV nutrition or go to a SNF [employer]. Current plan is to continue NG tube with supportive care to see if this resolves on its own like her previous admission. Plan for possible palliative care consultation when next available on 08/01 if no resolution of SBO. Patient may re-opt for surgery as well. 2. Recurrent breast cancer with bony metastases, active -resume home medications if able to tolerate p.o. intake 3. Hypothyroidism, chronic -continue home levothyroxine, IV for now at 40 mcg (home dose 75). 4. Hyperlipidemia, chronic -continue home statin if tolerating p.o. intake 5. Leukopenia, chronic, stable Code: Full, elects surrogate decision maker to be her and/or son DVT: Lovenox daily Dispo: Admit under observation status as her stay is not likely to exceed 2 midnights at this time, however her ultimate disposition will depend on her symptoms going forward. COVID-19 COVID-19 status: Negative
[2020-07-30] MEDS: LEVOTHYROXINE INJ 100 MCG/5 ML VIAL 40 MCG IV (16:56)
[2020-07-30] MEDS: METOCLOPRAMIDE 10 MG/2 ML INJ 5 MG IV (17:51)
--- NOTE | 2020-07-30 22:34 | PC.NURSE ---
shift note: Pt alert and awake, NG to LIS draining lg amount of brown liquid. Pt states she has had no flatus or urge to have BM. Medicated x1 this shift for cramping pain 5/10. Up to bedside commode with assist to void.
[2020-07-31] VITALS (7 sets, daily range): BP systolic 128–150; BP diastolic 59–71; PULSE 90–102; RESP 17–19; TEMP 36.3–37; O2SAT 91–93
[2020-07-31] MEDS: METOCLOPRAMIDE 10 MG/2 ML INJ 5 MG IV ×4 (00:14→17:13)
[2020-07-31] MEDS: ONDANSETRON 4 MG/2 ML INJ IV (03:43)
[2020-07-31] MEDS: HYDROMORPHONE 0.5 MG INJ IV ×3 (03:44→19:28)
[2020-07-31 04:49] LABS: Add Manual Diff / Slide Review NO; Basophils Absolute Auto 0 /uL (0-100); Basophils Percent Auto 0.4 % (0-2); Eosinophils Absolute Auto 0 /uL (0-450); Eosinophils Percent Auto 0.2 % (2-4); Hemoglobin 12.8 g/dL (12.0-16.0); Lymphocytes Absolute Auto 300 /uL (1100-4500); Lymphocytes Percent Auto 9.7 % (25-40); Mean Corpuscular HGB Conc 33.7 % (30-36); Mean Corpuscular Volume 103.9 fL (80-100); Monocytes Absolute Auto 100 /uL (0-900); Monocytes Percent Auto 3.8 % (3-14); Neutrophils Absolute Auto 2500 /uL (1500-7000); Neutrophils Percent Auto 85.9 % (50-75); Platelet Count 333 X10^3/uL (150-400); Red Blood Cell Count 3.66 X10^6/uL (4.0-5.2); Red Cell Distribution Width 14.3 % (11.6-14.8); White Blood Cell Count 2.9 X10^3/uL (4.5-11.0)
[2020-07-31 04:55] LABS: Alanine Aminotransferase 18 IU/L (<35); Albumin 3.4 g/dL (3.5-5.0); Albumin Globulin Ratio 1.3 (1.0-2.8); Alkaline Phosphatase 46 U/L (38-126); Aspartate Aminotransferase 31 IU/L (14-36); BUN Creatinine Ratio 32.4 (6-22); Blood Urea Nitrogen 24 mg/dL (7-17); Calcium 9.6 mg/dL (8.4-10.2); Carbon Dioxide 31 mmol/L (22-32); Chloride 101 mmol/L (98-107); Estimated Glomerular Filt Rate > 60.0 mL/min (>60); Globulin 2.6 g/dL (1.7-4.1); Glucose 145 mg/dL (80-110); HEMOLYSIS < 15 (0-50); Phosphorous 2.7 mg/dL (2.8-4.1); Potassium 4.1 mmol/L (3.4-5.1); Sodium 133 mmol/L (137-145)
[2020-07-31] MEDS: LACTATED RINGERS 1,000 ML 100 ML IV ×2 (06:16→16:20)
--- NOTE | 2020-07-31 06:57 | PC.NURSE ---
Ultrasonic Welding Machine Operator Note-Patient has NGT to LIS, 200ml green/brown liquid output, also had 150ml emesis, NGT had slipped out approximately 2 inches. Medicated with IV Zofran and IV Dilaudid which was effective. Bowel sounds absent, abdomen mildly distended, denies flatus. SR, has had few brief bursts of A-fib (not new), other VSS.
[2020-07-31] MEDS: PANTOPRAZOLE 40 MG VIAL 20 MG IV (09:16)
--- NOTE | 2020-07-31 11:01 | CM.DPC ---
DCP Comfort Care planning Per Surgeon, met bedside with pt again this morning and she seems more alert today and confirmed with pt that she DOES NOT want surgical intervention and Surgeon also confirmed with son that he is aware of pt's decision of not having the very risky surgery. Surgeon now signing off back to Hospitalist as surgical intervention not the plan at this time. Per Hospitalist, will meet bedside with pt later today to confirm that she is not wanting TPN or artificial nutrition and determining comfort plan. Kimberley Onc Patient Navigator met bedside with pt this morning after Surgeon consultation and Kimberley has worked with pt for around 3 years and has a good rapport and discussed pt's Goals of Care and natali discussion regarding pt's possible length of survival of likely 1-2 weeks and pt had not been fully aware that it could be that short of time. Pt expressed that she is not interested in TPN but MD will follow up with pt on this. Kimberley will confirm that pt's Oncology medication can be discontinued as especially that pt remains NPO. Pt confirms with Kimberley that her hope would be d/c to home with [facility] (as she recently worked with them for her who early Apr 2020 few months ago) and would be agreeable to financing 24/7 caregiver assist. Pt states she does not need a Hospice Info Visit as she recently worked with them in their home. MYAH called Hospice and spoke to intake Mica with update on pt status and she confirms they had pt's spouse on service in the home until he Apr 17 2020. Hospice has some openings but Mica needs to determine availability for [facility] and can call back. Mica will either have an RN bring intake/pwk to pt bedside or fax Care Management Dept to provide to patient to review and sign consents rather than attempting via internet. DIANE Wallace kindly faxed clinicals to Hospice to review. MYAH called pt's son Yeison in [place] and updated on above and he is agreeable to whatever pt preference is and recommendations. Yeison confirmed he just started a new job this week and is really struggling with his guilt of wanting to be bedside but maintaining this new job. He is agreeable with receiving list of local [facility] agency list and begin calling today to determine how quickly 24/7 care could be set up and the financial cost and how payment could happen as son is not local. MYAH provided the list of local CG agencies. SW discussed pt progress will determine if she improves, worsens but is stable to d/c on Hospice, or declines rapidly and remains in the hospital, son acknowledges understanding. SW updated MD and he will continue conversation with pt regarding POC and possible d/c with Hospice and CG vs remain in hospital. Plan: SW to follow for [facility] review and their availability and son to call [facility] agencies to determine timeline for getting in-home support set up. SW to follow for pt progress for setting up best d/c plan. REINA Cuadra
--- NOTE | 2020-07-31 11:06 | CM.DPNOTE ---
All clinical[facility]. Fax confirmation received. Madison Ramírez CM Asst.
--- NOTE | 2020-07-31 11:20 | ONC.MSW ---
Counseling-Goals of Care Conversation/End of Life Activity: This ACADEMIC AFFAIRS MANAGER met with pt in the Acute Care inpt setting in order to discuss end of life care/continued care goals. Patient is well known to this ACADEMIC AFFAIRS MANAGER, and have a well established therapeutic relationship with her. Pt seemed to be somewhat out of sorts, however was very alert and able to engage in conversation. She expressed very clearly that she did not want to have the small bowel surgery, and that she has expressed to her son that she doesn't want the surgery, and wants to focus on comfort. Discussed hospice in the home setting, which is her preference. She is aware of hospice care and what it entails, her was on hospice and in April 2020. Discussed her son's coping, and ACADEMIC AFFAIRS MANAGER assisted her in understanding that her son doesn't seem to understand the gravity of this situation, and remains hopeful that she will get better from this, due to having survived so many other cancer complications in the past. ACADEMIC AFFAIRS MANAGER discussed w/her that based on what the physicians are saying, that her life expectancy will most likely not be long once d/c from the hospital, and that she will need 24-hour hired care in place before arriving home. She expressed hesitancy in asking her son to come help her, however ACADEMIC AFFAIRS MANAGER was able to help her understand that he also need's the opportunity to be with her and have his own closure w/her, not knowing how long she will survive, especially without the surgery. However, she also expressed knowing full well that she may not even survive the surgery, should it be attempted. She was able to reflect on having a strong nanette, and belief that there is a greater plan, and feels very at peace with her impending end of life. Plan: ACADEMIC AFFAIRS MANAGER relayed the above information and plan to both pt's nurse and REINA Adam. She would like to go home on hospice, with in-home caregivers in place. She would like Care Management and the hospitalist to coordinate with her son, whom she will be talking with today as well. She says that she doesn't want an inpt info visit, but feels that the inpt ACADEMIC AFFAIRS MANAGER can work on coordinating the d/c and hospice admission, as well as coordination with her son re: care needs. ACADEMIC AFFAIRS MANAGER will also update Dr. Calix once he is in clinic this coming . No further needs identified at this time, will continue to monitor for further assistance/support needs from the Oncology role.
--- NOTE | 2020-07-31 13:57 | PC.NURSE ---
Addendum entered by Azam Meyer R.N. 07/31/20 14:01: Also reported at this time pt UOP 200 ML this shift. Original Note: Hospitalist rounded. Discussed plan of care, pt goals of care, nutrition status, HR/rhythm (pt has infrequent intermittent bursts of afib up to 120s). Reported pt would like to ambulate. Orders received to ambulate as tolerated and ok to clamp NGT for ambulation. Orders received to dc telemetry. Pt is progressing toward comfort care and declining surgical intervention and TPN.
--- NOTE | 2020-07-31 15:25 | PM.PN.1 ---
Subjective Subjective Date Patient Seen: 07/31/20 Time Patient Seen: 15:26 Interval history: Manda Garcia is an 79-year-old female with past medical history of recurrent breast cancer with bony metastasis, osteoporosis, hyperlipidemia, and hypothyroidism, appendiceal carninoma s/p hemicolectomy who is admitted for a small-bowel obstruction. She underwent a small-bowel follow-through which showed a persistent bowel obstruction without passage of contrast. Study was terminated by persistent nausea and vomiting. The patient refused surgery after discussion with the surgeon, Dr. Spencer and again after disucssion today. I again repeated continued options including continued NG tube with the possibility of PICC line placement and TPN. The patient discussed the desire to return to eating. I said that this may not occur without surgery, and she also seemingly was not interested in SNF placement with continued IV nutrition if this does not resolve. If this does not resolve, she is likely to get sick and ultimately succomb to this process or on hospice be so medicated with pain medications she would from bradypnea. She did not seemingly recall our similar discussion the day before, and also did not remember speaking to a surgeon. Had a long discussion with son, whom stated that patient was previously clear about her wish to avoid surgery and that ultimately it is her wish. Unfortunately, at this time, patient cannot seemingly decide which outcome she wants. We are currently proceeding forward with plan for hospice, which can do NG tube services at home. She has not passed gas or had any bowel movements today. Exam Vital Signs (past 8 hours): - 07/31/20 08:00 07/31/20 12:00 Temperature 98.4 F 98.6 F Pulse Rate 93 H 90 Respiratory Rate 17 19 Blood Pressure 137/65 128/59 L Pulse Oximetry 91 93 Oxygen Delivery Method Room Air Oxygen Flow Rate 0 Narrative Exam Narrative: General: acutely ill appearing, malnourished female. In no distress but appears uncomfortable at rest, grimaces with small movements. NG tube in place with clear output. SKIN: Inspection of the skin reveals no rashes, ulcerations or petechiae. HEENT: Oral mucosa moist, NG tube in place with clear output. EOMI, sclerae anicteric. NECK: Supple and symmetric. There was no thyroid enlargement, and no tenderness, or masses were felt. CHEST: Normal AP diameter and normal contour without any kyphoscoliosis. LUNGS: Auscultation of the lungs revealed no wheezes, rhonchi, or rales. CARDIOVASCULAR: There was a regular rate and rhythm without any murmurs, gallops, rubs. Peripheral pulses were 2+ and symmetric. ABDOMEN: distended and mildly tender throughout, slightly worse than the day before. MUSCULOSKELETAL: There was no tenderness or effusions noted. Muscle strength and tone were normal. EXTREMITIES: No cyanosis, clubbing or edema. NEUROLOGIC: Alert and oriented x 3. falls asleep easily and fatigued. No focal deficits. Objective Labs Result Diagrams: 07/31/20 04:25 07/31/20 04:25 Labs: Laboratory Results - last 24 hr 07/31/20 07/31/20 04:25 04:25 WBC 2.9 L RBC 3.66 L Hgb 12.8 Hct 38.0 MCV 103.9 H MCH 35.0 H MCHC 33.7 RDW 14.3 Plt Count 333 Neut % (Auto) 85.9 H Lymph % (Auto) 9.7 L [place] % (Auto) 3.8 Eos % (Auto) 0.2 L Baso % (Auto) 0.4 Neut # (Auto) 2500 Lymph # (Auto) 300 L [place] # (Auto) 100 Eos # (Auto) 0 Baso # (Auto) 0 Sodium 133 L Potassium 4.1 Chloride 101 Carbon Dioxide 31 BUN 24 H Creatinine 0.74 Estimated GFR > 60.0 BUN/Creatinine Ratio 32.4 H Glucose 145 H Calcium 9.6 Phosphorus 2.7 L Magnesium 2.0 Total Bilirubin 1.0 Conjugated Bilirubin 0.0 Unconjugated Bilirubin 1.0 AST 31 ALT 18 Alkaline Phosphatase 46 Total Protein 6.0 L Albumin 3.4 L Globulin 2.6 Albumin/Globulin Ratio 1.3 [facility] Medical History Abnormal chest x-ray (~2015) Actinic keratosis (~1998) Anemia (~2015) Anxiety Atrial fibrillation Breast cancer Carpal tunnel syndrome (~2009) Cataracts, bilateral (~2003) Chicken pox Colon polyps (~1994) Foot pain (~1995) Frequent UTI Hay fever (~1989) Hearing deficit History of recurrent ear infection Hypothyroidism Measles Mumps Osteoarthritis (~1999) Osteopenia Osteoporosis Partial obstruction of small intestine Pleural effusion Pneumothorax Rheumatic fever Scoliosis Venous stasis dermatitis of both lower extremities Vertigo (~1999) Vision disorder Surgical History Anesthesia History of arthroplasty History of cardiac radiofrequency ablation (RFA) History of cataract removal with insertion of prosthetic lens History of total mastectomy Status post appendectomy Status post arthroscopy Status post cholecystectomy Status post colectomy Status post craniotomy Status post hammer toe correction Thyroid nodule (~2013) Family History Mother Heart disease Family/Other No problems noted. Sister No problems noted. Social History marital status: household members: none lives independently: Yes occupational status: other (retired) Smoking Status: Never smoker alcohol intake: current substance use type: does not use Assessment & Plan Assessment & Plan narrative: Manda Garcia is an 80-year-old female with past medical history of recurrent breast cancer with bony metastasis, osteoporosis, hyperlipidemia, and hypothyroidism who is admitted for a small-bowel obstruction, likely secondary to adhesions given her surgical history. 1. Small-bowel obstruction, acute, present on admission - -continue NPO and IV fluids. IV pain control with dilaudid. -start reglan, continue zofran as needed. -CT scan showed acute SBO with transition point in the RLQ. Appreciate consultation by Dr. Specner. Small bowel follow through yesterday with persistent obstruction. Patient refused surgery last two days given that she very possibly would not survive the procedure or the recovery from it. She is somewhat interested in hospice or comfort measures either at this time. She does not want to continue jail supplemental IV nutrition or go to a SNF jail. Current plan is to continue NG tube with supportive care to see if this resolves on its own like her previous admission. At this point, most likely outcome appears to be discharge home on hospice with NG tube if possible. What the patient really seems to want is to go home and be comfortable and be able to eat. I told her this is not likely with and decision she makes, but the only way to obtain that would be to have a very risky surgery with a high chance of and even then it may not result in what she wants. She also seemingly understands that if she were to go home she may be very uncomfortable without a large amount of pain medications which risks respiratory depression. 2. Recurrent breast cancer with bony metastases, active -resume home medications if able to tolerate p.o. intake 3. Hypothyroidism, chronic -continue home levothyroxine, IV for now at 40 mcg (home dose 75). 4. Hyperlipidemia, chronic -continue home statin if tolerating p.o. intake 5. Leukopenia, chronic, stable Code: Full, elects surrogate decision maker to be her and/or son DVT: Lovenox daily Dispo: Inpatient, most likely discharge home with hospice. COVID-19 COVID-19 status: Negative
[2020-07-31] MEDS: LEVOTHYROXINE INJ 100 MCG/5 ML VIAL 40 MCG IV (17:13)
[2020-08-01] MEDS: METOCLOPRAMIDE 10 MG/2 ML INJ 5 MG IV ×4 (00:16→17:43)
[2020-08-01 00:30] VITALS: O2SAT 94
[2020-08-01 00:37] VITALS: BP 124/60; PULSE 97; RESP 16; TEMP 36.9; O2SAT 94
[2020-08-01] MEDS: LACTATED RINGERS 1,000 ML 100 ML IV ×2 (02:23→13:48)
[2020-08-01 05:11] LABS: Hematocrit 33.8 % (36-46); Hemoglobin 11.4 g/dL (12.0-16.0); Mean Corpuscular HGB Conc 33.7 % (30-36); Mean Corpuscular Hemoglobin 35.1 PG (26-34); Mean Corpuscular Volume 104.3 fL (80-100); Platelet Count 295 X10^3/uL (150-400); Red Blood Cell Count 3.24 X10^6/uL (4.0-5.2); Red Cell Distribution Width 14.8 % (11.6-14.8); White Blood Cell Count 3.4 X10^3/uL (4.5-11.0)
[2020-08-01 05:12] LABS: Add Manual Diff / Slide Review YES
[2020-08-01] MEDS: HYDROMORPHONE 0.5 MG INJ IV ×2 (05:26→17:50)
[2020-08-01 05:32] LABS: Alanine Aminotransferase 15 IU/L (<35); Albumin 2.9 g/dL (3.5-5.0); Albumin Globulin Ratio 1.1 (1.0-2.8); Alkaline Phosphatase 50 U/L (38-126); Aspartate Aminotransferase 33 IU/L (14-36); BUN Creatinine Ratio 40.3 (6-22); Bilirubin Total 1.3 mg/dL (0.2-1.3); Bilirubin Unconjugated 1.1 mg/dL (0.0-1.1); Blood Urea Nitrogen 31 mg/dL (7-17); Calcium 9.3 mg/dL (8.4-10.2); Carbon Dioxide 34 mmol/L (22-32); Chloride 101 mmol/L (98-107); Estimated Glomerular Filt Rate > 60.0 mL/min (>60); Globulin 2.6 g/dL (1.7-4.1); Glucose 118 mg/dL (80-110); HEMOLYSIS < 15 (0-50); Magnesium 2.2 mg/dL (1.6-2.3); Phosphorous 2.3 mg/dL (2.8-4.1); Potassium 4.2 mmol/L (3.4-5.1); Sodium 134 mmol/L (137-145); Total Protein 5.5 g/dL (6.3-8.2)
[2020-08-01 06:41] LABS: Total Cells Counted 100
[2020-08-01 06:42] LABS: Macrocytosis 1+; Neutrophils Absolute Manual 2516 /uL (3000-5900)
[2020-08-01 08:00] VITALS: BP 143/69; PULSE 96; RESP 17; TEMP 36.6; O2SAT 91
[2020-08-01] MEDS: PANTOPRAZOLE 40 MG VIAL 20 MG IV (09:14)
--- NOTE | 2020-08-01 10:39 | CM.DPNOTE ---
RightFaxed clinicals for referral to [facility] per Bridgette on 08/01/20. Fax confirmation received. Madison Ramírez CM Asst.
[2020-08-01 15:40] VITALS: BP 149/70; PULSE 99; RESP 16; TEMP 36.4; O2SAT 96
--- NOTE | 2020-08-01 16:02 | CM.DANOTE ---
DCP/continued: Reviewed chart. Per notes patient requesting hospice services Consents from [facility] received via fax for patient to sign. Met with patient this AM explained role. Patient confirms that she would like hospice services but it is unclear where those will occur? Patient reports that she resides alone. Consent signed and faxed back to [facility]. Per Dr. Renee he may consult surgery for another bowel follow through. Patient is requesting d/c planning options outside of residence. Notified patient that if needed [facility] in [place] can most likely accept however, cost is $300.00 per day for room/board. [facility] has referral and clinicals were faxed today. In addition, placed call to [facility] at [facility]. She reports they could accept under comfort benefit for short amount of time but patient cannot have NG tube. Patient currently with NG for comfort. Unclear at this time which option is most feasible for patient. Recommend that CM team include both patient and son for d/c planning discussion. P: Pending. REINA El
--- NOTE | 2020-08-01 17:03 | P.PN_ITS ---
Subjective Subjective Date Patient Seen: 08/01/20 Time Patient Seen: 13:30 Interval history: Manda Garcia is an 79-year-old female with past medical history of recurrent breast cancer with bony metastasis, osteoporosis, hyperlipidemia, and hypothyroidism, appendiceal carninoma s/p hemicolectomy who is admitted for a small-bowel obstruction. She was able to move quite a bit more today and feels more comfortable, but has still not passed any gas or had any bowel mo vements. Exam Vital Signs (past 8 hours): - 08/01/20 15:40 Temperature 97.5 F L Pulse Rate 99 H Respiratory Rate 16 Blood Pressure 149/70 H Pulse Oximetry 96 Oxygen Delivery Method Room Air Oxygen Flow Rate 0 Narrative Exam Narrative: General: acutely ill appearing, malnourished female. In no distress but appears uncomfortable at rest, grimaces with small movements. NG tube in place with clear output. SKIN: Inspection of the skin reveals no rashes, ulcerations or petechiae. HEENT: Oral mucosa moist, NG tube in place with clear output. EOMI, sclerae anicteric. NECK: Supple and symmetric. There was no thyroid enlargement, and no tenderness, or masses were felt. CHEST: Normal AP diameter and normal contour without any kyphoscoliosis. LUNGS: Auscultation of the lungs revealed no wheezes, rhonchi, or rales. CARDIOVASCULAR: There was a regular rate and rhythm without any murmurs, gallops, rubs. Peripheral pulses were 2+ and symmetric. ABDOMEN: distended and mildly tender throughout, slightly worse than the day before. MUSCULOSKELETAL: There was no tenderness or effusions noted. Muscle strength and tone were normal. EXTREMITIES: No cyanosis, clubbing or edema. NEUROLOGIC: Alert and oriented x 3. falls asleep easily and fatigued. No focal deficits. Objective Labs Result Diagrams: 08/01/20 04:40 08/01/20 04:40 Labs: Laboratory Results - last 24 hr 08/01/20 08/01/20 04:40 04:40 WBC 3.4 L RBC 3.24 L Hgb 11.4 L Hct 33.8 L MCV 104.3 H MCH 35.1 H MCHC 33.7 RDW 14.8 Plt Count 295 Neut % (Auto) Not Reportable Lymph % (Auto) Not Reportable [place] % (Auto) Not Reportable Eos % (Auto) Not Reportable Baso % (Auto) Not Reportable Lymph # (Auto) Not Reportable [place] # (Auto) Not Reportable Baso # (Auto) Not Reportable Total Counted 100 Seg Neutrophils % 51.0 Band Neutrophils % 23.0 H Lymphocytes % (Manual) 11.0 L Monocytes % (Manual) 12.0 H Metamyelocytes % 1.0 H Myelocytes % 2.0 H Neutrophils # (Manual) 2516 L RBC Morphology See below Macrocytosis 1+ H Sodium 134 L Potassium 4.2 Chloride 101 Carbon Dioxide 34 H BUN 31 H Creatinine 0.77 Estimated GFR > 60.0 BUN/Creatinine Ratio 40.3 H Glucose 118 H Calcium 9.3 Phosphorus 2.3 L Magnesium 2.2 Total Bilirubin 1.3 Conjugated Bilirubin 0.0 Unconjugated Bilirubin 1.1 AST 33 ALT 15 Alkaline Phosphatase 50 Total Protein 5.5 L Albumin 2.9 L Globulin 2.6 Albumin/Globulin Ratio 1.1 PFSH Medical History Abnormal chest x-ray (~2015) Actinic keratosis (~1998) Anemia (~2015) Anxiety Atrial fibrillation Breast cancer Carpal tunnel syndrome (~2009) Cataracts, bilateral (~2003) Chicken pox Colon polyps (~1994) Foot pain (~1995) Frequent UTI Hay fever (~1989) Hearing deficit History of recurrent ear infection Hypothyroidism Measles Mumps Osteoarthritis (~1999) Osteopenia Osteoporosis Partial obstruction of small intestine Pleural effusion Pneumothorax Rheumatic fever Scoliosis Venous stasis dermatitis of both lower extremities Vertigo (~1999) Vision disorder Surgical History Anesthesia History of arthroplasty History of cardiac radiofrequency ablation (RFA) History of cataract removal with insertion of prosthetic lens History of total mastectomy Status post appendectomy Status post arthroscopy Status post cholecystectomy Status post colectomy Status post craniotomy Status post hammer toe correction Thyroid nodule (~2013) Family History Mother Heart disease Family/Other No problems noted. Sister No problems noted. Social History marital status: household members: none lives independently: Yes occupational status: other (retired) Smoking Status: Never smoker alcohol intake: current substance use type: does not use Assessment & Plan Assessment & Plan narrative: Manda Garcia is an 80-year-old female with past medical history of recurrent breast cancer with bony metastasis, osteoporosis, hyperlipidemia, and hypothyroidism who is admitted for a small-bowel obstruction, likely secondary to adhesions given her surgical history. 1. Small-bowel obstruction, acute, present on admission - -continue NPO and IV fluids. IV pain control with dilaudid. -continue reglan, continue zofran as needed. -CT scan showed acute SBO with transition point in the RLQ. Appreciate consultation by Dr. Spencer. Small bowel follow through with persistent obstruction. Patient refused surgery given that she very possibly would not survive the procedure or the recovery from it. She is interested in hospice at this time and has signed hospice paperwork. She does not want to continue intermediate supplemental IV nutrition or go to a SNF intermediate. Current plan is to continue NG tube with supportive care to see if this resolves on its own like her previous admission. At this point, most likely outcome appears to be discharge home on hospice with NG tube and either a large amount of support at home or inpatient hospice. This final decision is pending discussion with her son planned for today who is in [place]. 2. Recurrent breast cancer with bony metastases, active -resume home medications if able to tolerate p.o. intake 3. Hypothyroidism, chronic -continue home levothyroxine, IV for now at 40 mcg (home dose 75). 4. Hyperlipidemia, chronic -continue home statin if tolerating p.o. intake 5. Leukopenia, chronic, stable Code: Full, elects surrogate decision maker to be her and/or son DVT: Lovenox daily Dispo: Inpatient, most likely discharge hospice. COVID-19 COVID-19 status: Negative
--- NOTE | 2020-08-01 17:29 | PC.NURSE ---
Evening shift note Pt A/O x3, resting in bed, VSS, NG to LIS. Fluids infusing as ordered, this nurse noted that PIV placed today was infiltrated, stopped IV fluids, contacted DI Nurse Socorro who placed the original PIV today. Socorro came up and evaluated pt, agreed that the only option was to place a midline as we are unable to use Left arm for access due to breast cancer on left side. Midline placed in FANNY, pt tolerated well.
[2020-08-01] MEDS: LEVOTHYROXINE INJ 100 MCG/5 ML VIAL 40 MCG IV (17:39)
[2020-08-02] MEDS: HYDROMORPHONE 0.5 MG INJ IV ×2 (00:10→18:28)
[2020-08-02] MEDS: METOCLOPRAMIDE 10 MG/2 ML INJ 5 MG IV ×4 (00:10→19:14)
[2020-08-02] MEDS: LACTATED RINGERS 1,000 ML 100 ML IV ×3 (00:10→20:26)
[2020-08-02] MEDS: ONDANSETRON 4 MG/2 ML INJ IV ×2 (00:11→18:29)
[2020-08-02 00:27] VITALS: BP 161/84; PULSE 87; RESP 16; TEMP 36.6; O2SAT 91
[2020-08-02 01:00] VITALS: O2SAT 91
[2020-08-02 05:25] LABS: Hematocrit 33.9 % (36-46); Hemoglobin 11.4 g/dL (12.0-16.0); Mean Corpuscular HGB Conc 33.8 % (30-36); Mean Corpuscular Hemoglobin 34.9 PG (26-34); Mean Corpuscular Volume 103.2 fL (80-100); Platelet Count 292 X10^3/uL (150-400); Red Blood Cell Count 3.28 X10^6/uL (4.0-5.2); Red Cell Distribution Width 14.3 % (11.6-14.8); White Blood Cell Count 3.9 X10^3/uL (4.5-11.0)
[2020-08-02 05:27] LABS: Alanine Aminotransferase 15 IU/L (<35); Albumin 2.8 g/dL (3.5-5.0); Alkaline Phosphatase 55 U/L (38-126); Aspartate Aminotransferase 32 IU/L (14-36); Bilirubin Total 1.2 mg/dL (0.2-1.3); Bilirubin Unconjugated 0.9 mg/dL (0.0-1.1); Blood Urea Nitrogen 36 mg/dL (7-17); Calcium 8.9 mg/dL (8.4-10.2); Carbon Dioxide 33 mmol/L (22-32); Chloride 104 mmol/L (98-107); Estimated Glomerular Filt Rate > 60.0 mL/min (>60); Globulin 2.7 g/dL (1.7-4.1); Glucose 112 mg/dL (80-110); HEMOLYSIS < 15 (0-50); Magnesium 2.3 mg/dL (1.6-2.3); Phosphorous 2.9 mg/dL (2.8-4.1); Potassium 3.8 mmol/L (3.4-5.1); Sodium 135 mmol/L (137-145); Total Protein 5.5 g/dL (6.3-8.2)
[2020-08-02 05:28] LABS: Add Manual Diff / Slide Review YES
[2020-08-02 06:33] LABS: Macrocytosis 1+; Neutrophils Absolute Manual 3198 /uL (3000-5900); Total Cells Counted 100
[2020-08-02 07:00] VITALS: BP 140/78; PULSE 93; RESP 17; TEMP 36.4; O2SAT 91
[2020-08-02] MEDS: PANTOPRAZOLE 40 MG VIAL 20 MG IV (08:14)
--- NOTE | 2020-08-02 12:22 | P.PN_ITS ---
Subjective Subjective Date Patient Seen: 08/02/20 Interval history: Patient was admitted for a small bowel obstruction. She has a history of recurrent breast cancer, hyperlipdiemia, and hypothyroidism. Patient continues to have no stool out, passing of gas. She continues to report abdomina l pain( minimal) when sitting up. She states she does not recall speaking to the Surgeon. She would like to review her CT Scan, see the cut off/obstruction and discuss surgical treatment again. Exam Vital Signs (past 8 hours): - 08/02/20 07:00 Temperature 97.6 F Pulse Rate 93 H Respiratory Rate 17 Blood Pressure 140/78 Pulse Oximetry 91 Oxygen Delivery Method Room Air Oxygen Flow Rate 0 Narrative Exam Narrative: ill appearing female in bed, relatively comfortable NG tube in place Lungs: decreased breath sounds but clear CV; RRR nl Sl s2 Abd; distended, soft, mildly tender, no bowel tones appreciated, no rigidity, no palpable masses Ext: 1+edema Objective Labs Result Diagrams: 08/02/20 04:30 08/02/20 04:30 Labs: Laboratory Results - last 24 hr 08/02/20 08/02/20 04:30 04:30 WBC 3.9 L RBC 3.28 L Hgb 11.4 L Hct 33.9 L MCV 103.2 H MCH 34.9 H MCHC 33.8 RDW 14.3 Plt Count 292 Neut % (Auto) Not Reportable Lymph % (Auto) Not Reportable [place] % (Auto) Not Reportable Eos % (Auto) Not Reportable Baso % (Auto) Not Reportable Lymph # (Auto) Not Reportable [place] # (Auto) Not Reportable Baso # (Auto) Not Reportable Total Counted 100 Seg Neutrophils % 64.0 Band Neutrophils % 18.0 H Lymphocytes % (Manual) 8.0 L Monocytes % (Manual) 9.0 Myelocytes % 1.0 H Neutrophils # (Manual) 3198 RBC Morphology See below Macrocytosis 1+ H Sodium 135 L Potassium 3.8 Chloride 104 Carbon Dioxide 33 H BUN 36 H Creatinine 0.75 Estimated GFR > 60.0 BUN/Creatinine Ratio 48.0 H Glucose 112 H Calcium 8.9 Phosphorus 2.9 Magnesium 2.3 Total Bilirubin 1.2 Conjugated Bilirubin 0.0 Unconjugated Bilirubin 0.9 AST 32 ALT 15 Alkaline Phosphatase 55 Total Protein 5.5 L Albumin 2.8 L Globulin 2.7 Albumin/Globulin Ratio 1.0 [facility] Medical History Abnormal chest x-ray (~2015) Actinic keratosis (~1998) Anemia (~2015) Anxiety Atrial fibrillation Breast cancer Carpal tunnel syndrome (~2009) Cataracts, bilateral (~2003) Chicken pox Colon polyps (~1994) Foot pain (~1995) Frequent UTI Hay fever (~1989) Hearing deficit History of recurrent ear infection Hypothyroidism Measles Mumps Osteoarthritis (~1999) Osteopenia Osteoporosis Partial obstruction of small intestine Pleural effusion Pneumothorax Rheumatic fever Scoliosis Venous stasis dermatitis of both lower extremities Vertigo (~1999) Vision disorder Surgical History Anesthesia History of arthroplasty History of cardiac radiofrequency ablation (RFA) History of cataract removal with insertion of prosthetic lens History of total mastectomy Status post appendectomy Status post arthroscopy Status post cholecystectomy Status post colectomy Status post craniotomy Status post hammer toe correction Thyroid nodule (~2013) Family History Mother Heart disease Family/Other No problems noted. Sister No problems noted. Social History marital status: household members: none lives independently: Yes occupational status: other (retired) Smoking Status: Never smoker alcohol intake: current substance use type: does not use Assessment & Plan Assessment & Plan narrative: Assessment & Plan narrative: Manda Garcia is an 80-year-old female with past medical history of recurrent breast cancer with bony metastasis, osteoporosis, hyperlipidemia, and hypothyroidism who is admitted for a small-bowel obstruction, likely secondary to adhesions given her surgical history. 1. Small-bowel obstruction, acute, present on admission - -continue NPO and IV fluids. IV pain control with dilaudid. -continue reglan, continue zofran as needed. -CT scan showed acute SBO with transition point in the RLQ. Appreciate consultation by Dr. Spencer. Small bowel follow through with persistent obs truction. Patient would like to revisit treatment options with surgery to include surgery. She wants to see her scans and discuss surgical treatment options. Following this discussion, we will decide if she will proceed to surgery or continue with hospice. We will arrange for her son to be on the call to participate in the discussion. 2. Recurrent breast cancer with bony metastases, active -resume home medications if able to tolerate p.o. intake 3. Hypothyroidism, chronic -continue home levothyroxine, IV for now at 40 mcg (home dose 75). 4. Hyperlipidemia, chronic -continue home statin if tolerating p.o. intake 5. Leukopenia, chronic, stable
[2020-08-02 16:00] VITALS: BP 123/68; PULSE 103; RESP 16; TEMP 36.7; O2SAT 93
[2020-08-02] MEDS: LEVOTHYROXINE INJ 100 MCG/5 ML VIAL 40 MCG IV (18:36)
[2020-08-02] MEDS: BENZOCAINE/MENTHOL 1 LOZ PKT 1 EACH PO (23:07)
[2020-08-02 23:45] VITALS: BP 158/70; PULSE 100; RESP 18; TEMP 37.1; O2SAT 89
[2020-08-03] MEDS: BENZOCAINE/MENTHOL 1 LOZ PKT 1 EACH PO ×2 (00:02→18:18)
[2020-08-03] MEDS: METOCLOPRAMIDE 10 MG/2 ML INJ 5 MG IV ×4 (00:02→17:59)
[2020-08-03] MEDS: HYDROMORPHONE 0.5 MG INJ IV ×4 (00:02→18:36)
--- NOTE | 2020-08-03 00:43 | PC.NURSE ---
0030- O2 saturation on room air 89% with vitals. Spot check after pain medication patient saturation 86% on room air. Patient placed on 2l cannula and saturation up to 92%. Will monitor closely.
[2020-08-03 01:00] VITALS: O2SAT 92
[2020-08-03 04:24] VITALS: BP 181/73; PULSE 95; RESP 18; TEMP 37; O2SAT 93
[2020-08-03 05:38] VITALS: TEMP 38.7
[2020-08-03] MEDS: LACTATED RINGERS 1,000 ML 100 ML IV (06:03)
[2020-08-03 07:00] VITALS: BP 143/73; PULSE 80; RESP 17; TEMP 36.8; O2SAT 94
[2020-08-03] MEDS: PANTOPRAZOLE 40 MG VIAL 20 MG IV (09:34)
--- NOTE | 2020-08-03 12:14 | PC.NURSE ---
Dayshift Note: Pt with neuro intact. A and O x3. Pt denies pain at this time. IV dilauid for pain management prn. CARSON, SB assist with mobility. Pt received on 1.5 L NC. Attempted to wean to RA with SPO2 remaining at 88%. Placed back on O2 at 1 L NC. Pt denies SOB. Lungs CTA. MD notified. Will decrease IVF rate when orders received. Pt with irregularly irregular heart rhythm. Pt is not on telemetry. Dr. Hasnon notified. No new orders received. Pt with BP WNL. Denies chest pain or pressure. Pt remains with bowel obstruction. No flatus, absent BTs. NG to LIS. Pt taking ice chips for comfort. aware, surgical consult. Scheduled reglan for nausea. Pt voiding in bathroom without concern. Call light in reach. Pt using it to request care and for help transferring. Will continue to monitor, notify MD with changes.
--- NOTE | 2020-08-03 14:34 | CM.DPNOTE ---
DCP Cont Working on DCP throughout the day yesterday and today. Reviewed chart. Staffed case w/ Kimberley Major in Oncology, Dr Hanson, and other multidisciplinary team members. Also placed call to son Yeison, had lengthy conversation w/him yesterday re: POC. Placed call to [facility], they would have a bed for patient today 2..21, any out of pocket cost might be covered by their foundation if patient/family could not afford. Yesterday, patient requested additional information from the surgical team re: option of surgery. Patient had stated yesterday that she did not remember a previous conversation w/Dr Spencer, stating she had only remembered a conversation w/Dr Heath after her last procedure. Dr Spencer was scheduled to visit patient's room at 1730 yesterday evening and this SPORTS LAWYER prepped daysi Latahm to call in and be on speaker phone during this conversation. Son Yeison sounded irritated yesterday on the phone, explained that he had reviewed information many times w/his mom, and his mom had indicated to him she did not want surgery, wanted hospice..however son felt obligated to follow his mom's current wishes since she is still alert and oriented daysi Latham planned to be in [place] Thursday evening from [place]. Notes from the conversation held w/patient yesterday evening are not available at this time, however, Dr Hanson updated this SPORTS LAWYER that long discussion was held w/different family members, daysi Latham was not a part of the discussion. Patient had told the team she did want to go to [place] but continued to ask for clarification about the NG tube vs a G-tube. Today, patient continues to waver on plan and appears to staff to be more confused than yesterday, and increasingly confused throughout the day, Dr Hanson aware. conversations are very cyclical. Patient began the day by asking for an abd ultrasound to see what's going on inside my body. This SPORTS LAWYER, Dr Hanson, and RN Mirta met w/patient in room this morning to once again review goals of care, and limited intervention options- patient is not a surgical candidate, she does not want to go to [facility] in [place] and has said to team multiple times she is prepared for Hospice and states to this SPORTS LAWYER my hope is to peacefully and get things finished for my estate. Discussed this referral w/November at [facility]; she reiterated that patient could not admit w/an NG tube or G tube, states she could come over for comfort measures, covered by [facility] for approx 5-7 days, then patient/family would need to pay privately (2 weeks up front deposit) at $400 daily rate. Relayed above to patient and Dr Hanson, and patient agreeable. Dr Hanson, this SPORTS LAWYER and KIRBY Kirby have taken time at patient's bedside throughout the day to discuss plan and attempt to answer questions that arise. At this time, plan is DC to [facility] Thursday08.03.[address] Hanson and CM Sup Trang de la garza. Dr Hanson planning to discuss update re DC plan w/ son Yeison this afternoon. Dr Renee will be updated on plan for tomorrow. Yu at [facility] also updated on plan this afternoon, this SPORTS LAWYER asks if [facility] can request consultation re: managing end of life symptoms, med management etc,..if patient is not admitted to their service ? Yu explains this can be arranged if [facility] is interested in that, they can contact W Following closely to coordinate details of this DCP REINA Caballero
[2020-08-03 16:47] VITALS: BP 135/91; PULSE 100; RESP 18; TEMP 36.5; O2SAT 93
[2020-08-03] MEDS: fentaNYL 12 MCG/PATCH TOP (16:52)
--- NOTE | 2020-08-03 16:55 | PM.PN.1 ---
Subjective Subjective Date Patient Seen: 08/03/20 Interval history: Patient is a 1-year-old female admitted to the hospital with a bowel obstruction. She has recurrent breast cancer, hyperlipidemia, hypothyroidism, patient has a history of appendiceal carcinoma, as well as colon cancer, and associated radiation to the abdomen. The patient did have a CT scan which confirmed a small bowel obstruction, revealed a distal small-bowel obstruction that showed oral contrast seen to the transition to approximately the proximal half of the small bowel oral contrast did not enter the colon. The patient does not appear to be in significant pain. She has required 2 doses of Dilaudid today. She has about 300 cc of NG output. Exam Vital Signs (past 8 hours): - 08/03/20 16:47 Temperature 97.7 F Pulse Rate 100 H Respiratory Rate 18 Blood Pressure 135/91 H Pulse Oximetry 93 Oxygen Delivery Method Nasal Cannula Oxygen Flow Rate 1 Narrative Exam Narrative: Frail ill-appearing elderly female Lungs: Decreased breath sounds but clear to auscultation Cardiac exam: Regular rate and rhythm normal S1-S2 Abdomen: Soft mildly distended with hypoactive bowel tones Extremities: No edema Objective Labs Result Diagrams: 08/02/20 04:30 08/02/20 04:30 [facility] Medical History Abnormal chest x-ray (~2015) Actinic keratosis (~1998) Anemia (~2015) Anxiety Atrial fibrillation Breast cancer Carpal tunnel syndrome (~2009) Cataracts, bilateral (~2003) Chicken pox Colon polyps (~1994) Foot pain (~1995) Frequent UTI Hay fever (~1989) Hearing deficit History of recurrent ear infection Hypothyroidism Measles Mumps Osteoarthritis (~1999) Osteopenia Osteoporosis Partial obstruction of small intestine Pleural effusion Pneumothorax Rheumatic fever Scoliosis Venous stasis dermatitis of both lower extremities Vertigo (~1999) Vision disorder Surgical History Anesthesia History of arthroplasty History of cardiac radiofrequency ablation (RFA) History of cataract removal with insertion of prosthetic lens History of total mastectomy Status post appendectomy Status post arthroscopy Status post cholecystectomy Status post colectomy Status post craniotomy Status post hammer toe correction Thyroid nodule (~2013) Family History Mother Heart disease Family/Other No problems noted. Sister No problems noted. Social History marital status: household members: none lives independently: Yes occupational status: other (retired) Smoking Status: Never smoker alcohol intake: current substance use type: does not use Assessment & Plan Assessment & Plan narrative: Small-bowel obstruction, acute, present on admission - -continue NPO and IV fluids. IV pain control with dilaudid. -continue reglan, continue zofran as needed. -CT scan showed acute SBO with transition point in the RLQ. Appreciate consultation by Dr. Spencer. Small bowel follow through with persistent obstruction. Patient would like to revisit treatment options with surgery to include surgery. She wants to see her scans and discuss surgical treatment options. Following this discussion, we will decide if she will proceed to surgery or continue with hospice. We will arrange for her son to be on the call to participate in the discussion. Patient had a long discussion with her knees as well as her friend, a surgeon, Dr. Niño. We discussed surgical treatment options in the patient reaffirmed that she does not want surgery. She initially wanted to go to [facility] for end of life care. But since that time has decided she would like to go home for end of life care with hospice following this discharge. The patient's NG tube will be removed today. Her IV fluids will be discontinued. An ambulance will be arranged to transport her home tomorrow. Her son and her niece will be at home to care for her. She has been in contact with hospice. They will be out to her home early next week for evaluation. Patient was started on a fentanyl patch tonight. Will continue the fentanyl patch and arrange for pain in anti nausea medications for her at discharge. 2. Recurrent breast cancer with bony metastases, active -resume home medications if able to tolerate p.o. intake 3. Hypothyroidism, chronic -continue home levothyroxine, IV for now at 40 mcg (home dose 75). 4. Hyperlipidemia, chronic -continue home statin if tolerating p.o. intake 5. Leukopenia, chronic, stable
[2020-08-03] MEDS: ONDANSETRON 4 MG/2 ML INJ IV (17:59)
--- NOTE | 2020-08-03 18:10 | P.DS_ITS ---
History of Present Illness History of Present Illness Date Patient Seen: 08/03/20 Chief complaint: ABD Pain Narrative: Patient is a 80-year-old woman Manda Garcia with a current history of metastatic breast cancer, colon cancer, hypothyroidism, venous stasis, atrial fibrillation, and osteoarthritis. Patient presents to the ED with a complaint of radiating severe abdominal pain with acute onset of severe vomiting and diarrhea. Pain started abruptly at 1900 tonight. She states she has been in her usual health prior to that. Denies fever, cough, chest pain, palpitations, diarrhea, dysuria, headaches, nausea, shortness of breath or lower extremity edema. Upon admit patient's vitals are temp 98.9?, BP 166/77, HR 77, RR 10, O2 saturation 90% on 2 L/NC patient apparently had desaturation following pain management in the ED and required O2. Labs WBC 4.4, sodium 135, BUN 30, glucose 145, lactate negative, BUN creatinine ratio 34.4. EKG: NSR with PACs at 71 bpm., no acute changes. Abdomen/pelvis CT: Demonstrated moderate to severe, small-bowel obstruction with a transitional point in the right upper abdomen. Dr. Spencer was consulted and recommended the patient be admitted and he will consult and follow up with her in the morning. NG tube was placed in ER. Upon admit patient states that she denies chest pain shortness of breath, body aches or chills. She has continued mild nausea and upset stomach her pain is a a out of 10 down from 9/10 in the ER, and she complains if a low back ache. Patient's NG tube is draining green bile approximately 100 cc. Patient admitted for small-bowel obstruction. Discharge Providers Provider Date of admission: 07/29/20 23:40 Discharge Date: 08/03/20 Primary care physician: Jessica Bush DO Consults: 07/30/20 00:13 Consult to Discharge Planning Routine Comment: 07/30/20 00:14 Consult to Occupational Therapy Evaluate & Treat Comment: Physician Instructions: Evaluate and treat Consult to Physical Therapy Evaluate & Treat Comment: Physician Instructions: Evaluate and Treat Discharge provider: Amber Hanson MD Summary Hospital Course Discharge Diagnosis: 1. Small-bowel obstruction 2. History of colon cancer, history of appendiceal cancer, status post radiation to the abdomen 3. Metastatic breast cancer 4 Atrial fibrillation 5. Hypothyroidism Hospital Course: Patient presented to the hospital for severe abdominal pain. CT of the abdomen and pelvis at admission demonstrated small-bowel obstruction with a transition point in the right lower quadrant and ascites. The patient was seen in consultation by Dr. Johanna metzger. He recommended an upper GI small-bowel follow-through. The small-bowel follow-through study showed a persistent bowel obstruction without passage of contrast. The study was terminated given the severe nausea and vomiting. The patient refused surgery. Given that she would not want surgery and NG tube was kept in place with IV hydration. After several days the patient wanted to revisit surgery again. Dr. Lawrence discussed with her surgical treatment options. We discussed the possibility of a gastrostomy tube. As the patient has a NG tube in would not be able to [facility] a [facility] with the NG tube. She initially was int erested in hospice but did not want to go to [place] to hospice house, the patient ultimately decided she did not want to go to [facility] but rather to return to her own home with hospice for comfort measures. Her son is flying in this evening from [place]. She has friends who were care at the hospital who will be taking her home. The patient would like to discharge home this evening with plans for comfort measures at home. She has been in consultation with hospice who will visit with her and her family on Thursday. The patient did son and niece will be at her home. She will be cared for at home under the care of hospice which will start early next week. Patient is disc harged home for end of life care. Status at Discharge Cognitive/behavioral status at discharge: confused Functional status at discharge: bed bound Overall status at discharge: patient is not back to baseline Time Spent with Patient Time spent: Less than 30 minutes Exam Vital Signs (past 8 hours): - 08/03/20 16:47 Temperature 97.7 F Pulse Rate 100 H Respiratory Rate 18 Blood Pressure 135/91 H Pulse Oximetry 93 Oxygen Delivery Method Nasal Cannula Oxygen Flow Rate 1 Narrative Exam Narrative: Ill-appearing elderly female lying in bed Lungs: Decreased breath sounds Cardiac exam: Regular rate rhythm normal S1-S2 Abdomen: Distended, soft, nontender with hypoactive bowel tones Extremities: No edema Objective Labs Result Diagrams: 08/02/20 04:30 08/02/20 04:30 [facility] Medical History Abnormal chest x-ray (~2015) Actinic keratosis (~1998) Anemia (~2015) Anxiety Atrial fibrillation Breast cancer Carpal tunnel syndrome (~2009) Cataracts, bilateral (~2003) Chicken pox Colon polyps (~1994) Foot pain (~1995) Frequent UTI Hay fever (~1989) Hearing deficit History of recurrent ear infection Hypothyroidism Measles Mumps Osteoarthritis (~1999) Osteopenia Osteoporosis Partial obstruction of small intestine Pleural effusion Pneumothorax Rheumatic fever Scoliosis Venous stasis dermatitis of both lower extremities Vertigo (~1999) Vision disorder Surgical History Anesthesia History of arthroplasty History of cardiac radiofrequency ablation (RFA) History of cataract removal with insertion of prosthetic lens History of total mastectomy Status post appendectomy Status post arthroscopy Status post cholecystectomy Status post colectomy Status post craniotomy Status post hammer toe correction Thyroid nodule (~2013) Family History Mother Heart disease Family/Other No problems noted. Sister No problems noted. Social History marital status: household members: none lives independently: Yes occupational status: other (retired) Smoking Status: Never smoker alcohol intake: current substance use type: does not use Discharge Assessment & Plan Assessment and Plan Assessment: 1. Small-bowel obstruction, secondary to prior surgery verses adhesions from radiation therapy 2. History of colon cancer, status post hemicolectomy 3. History of metastatic breast cancer 4. Hyperlipidemia 5. Hypothyroidism Plan of Treatment: Discharge home for end of life care with hospice Discharge Plan Discharge Plan Patient Disposition: Hospice - Home Discharge orders & Medications Prescriptions: New fentanyl 12 mcg/hr Patch 72 Hour 12 mcg topical Q72H Qty: 5 RF: 0 ondansetron HCl [Zofran] 4 mg tablet 4 mg PO Q8H PRN (Reason: nausea and vomiting) Qty: 14 RF: 0 Discontinued levothyroxine 75 mcg tablet 75 mcg PO DAILY Qty: 90 RF: 3 atorvastatin 10 mg tablet 5 mg PO DAILY Qty: 45 RF: 3 triamcinolone acetonide 0.1 % cream 1 applic TOP BID Qty: 454 RF: 2 metronidazole 0.75 % gel 1 appful vaginal ONCE Qty: 70 RF: 1 ascorbic acid (vitamin C) 1,000 mg PO DAILY RF: 0 cholecalciferol (vitamin D3) 3,000 unit tablet 3,000 unit PO DAILY RF: 0 krill oil 500 mg PO DAILY RF: 0 melatonin 3 mg tablet 3 mg PO BEDTIME PRN (Reason: sleep) Qty: 90 RF: 0 fulvestrant [Faslodex] 250 mg/5 mL Syringe 500 mg IM QMONTH RF: 0 carica papaya [Papaya Enzyme] Tablet 1 tab PO DAILY RF: 0 cyanocobalamin (vitamin B-12) [Vitamin B-12] 1,000 mcg Tablet 1,000 mcg DAILY RF: 0 Ibrance 100 mg Tablet 100 mg PO DAILY Qty: 21 RF: 11 calcium citrate-vitamin D3 [Citracal Regular] 250 mg calcium- 200 unit Tablet 1 tab PO DAILY RF: 0 coenzyme Q10 [Co Q-10] 100 mg capsule 300 mg PO DAILY RF: 0 No Action (DME) Breast Prosthesis And Bra Qty: 2 RF: 1 Follow up/Referrals: Jessica Bush DO [Primary Care Provider] - Diet/Activity/Treatments Diet: Nothing by Mouth Discharge Data Primary Care Provider: Jessica Bush
== END 2020-08-03 19:40 | disposition hospice, home (50) | DRG 389 ==
LOC: ED 22:15 → AC 23:51 → ICU 07-30 08:15 → AC 07-30 14:06
PROVIDERS: Internal Medicine; Admitting Provider Nurse Practitioner Family; Emergency Provider Emergency Medicine; PCP Family Medicine; Visit Provider Nurse Practitioner Family
DX: K56.609 Unspecified intestinal obstruction, unspecified as to partial versus complete obstruction (principal); I48.20 Chronic atrial fibrillation, unspecified; C79.51 Secondary malignant neoplasm of bone; C50.912 Malignant neoplasm of unspecified site of left female breast; R60.0 Localized edema; I87.8 Other specified disorders of veins; E03.9 Hypothyroidism, unspecified; D72.819 Decreased white blood cell count, unspecified; E78.5 Hyperlipidemia, unspecified; Z85.038 Personal history of other malignant neoplasm of large intestine; Z66 Do not resuscitate; Z20.822 Contact with and (suspected) exposure to COVID-19; Z85.89 Personal history of malignant neoplasm of other organs and systems
CPT/HCPCS: 36415; 71260; 74018; 74177; 74250; 78306; 80048; 80053; 80076; 81001; 82962; 83605; 83735; 84100; 85007; 85025; 85610; 85730; 87040; 87077; 87086; 87147; 87186; 87635; 87797; 93005; 93010; 96361; 96374; 96375; 99284; A9503; C9803; C9113; J1170; J2405; J2765; Q9967